=== PATIENT | male | born 1985 | race Caucasian/White ===

== ENCOUNTER 2019-04-28 04:51 | Emergency (ER) | payer MEDICARE, MEDICAID ==
[2019-04-28] MEDS ORDERED: Ondansetron 4 MG Tab.DIS PO ONE (05:10)
[2019-04-28] MEDS ORDERED: Alum Hydroxide/Mag Hydroxide 15 ML, Lidocaine 2% 15 ML PO ONE ×2 (05:11)
[2019-04-28] MEDS ORDERED: Sodium Chloride 0.9% 10 ML Syringe FLUSH PRN (05:39)
[2019-04-28] MEDS ORDERED: Atropine/Diphenoxylate 0.025-2.5 MG Tab PO ONE (05:42)
[2019-04-28] MEDS ORDERED: Sodium Chloride 0.9% 1,000 ML IV SCH (05:45)
[2019-04-28] MEDS ORDERED: Dicyclomine 10 MG Cap PO ONE (05:57)
[2019-04-28] MEDS ORDERED: Iopamidol 755 Mg/ML 100 ML Bottle IV ONE (07:27)
--- NOTE | 2019-04-28 09:26 | EDM.PDOC ---
ED HPI GENERAL MEDICAL PROBLEM - General Chief Complaint: Abdominal Pain Stated Complaint: ABDOMINAL PAIN;PELVIC PAIN Time Seen by Provider: 04/28/19 05:05 - History of Present Illness INITIAL COMMENTS - FREE TEXT/NARRATIVE: Patient presented to the ED because of abdominal pain for 2 months. It's cramping and sharp,diffuse, 8/10 at worse. There is alternating diarrhea and constipation. Denies having any bloody stool, N/V,fever or chills. he was seen by a GI doc 1 week ago and underwent EGD and colonoscopy but result still pending. He was prescribed an unknown medicine for IBS but have not able to fill the prescription because his medical insurance didn't cover it. Abdominal Pain Score (Numeric/FACES): 2 - Related Data Allergies Allergy/AdvReac Type Severity Reaction Status Date / Time adhesive Allergy Rash Verified 04/28/19 07:49 bee pollen Allergy Throat Verified 04/28/19 07:25 closes, Rash seroquel Allergy Nausea Uncoded 04/28/19 07:23 Home Meds: Home Meds Acetaminophen [Tylenol Extra Strength] 1,000 mg PO Q6H PRN 04/28/19 [History] Cyclobenzaprine [Flexeril] 10 mg PO BID PRN 04/28/19 [History] EPINEPHrine [Epipen] 0.3 mg IM ASDIRECTED PRN 04/28/19 [History] LORazepam [Ativan] 0.5 mg PO DAILY 04/28/19 [History] Meloxicam 15 mg PO DAILY 04/28/19 [History] Ondansetron HCl [Zofran] 4 mg PO Q8H PRN 04/28/19 [History] Pantoprazole Sodium [Protonix] 40 mg PO DAILY 04/28/19 [History] Ziprasidone HCl 40 mg PO BID 04/28/19 [History] lamoTRIgine 200 mg PO DAILY 04/28/19 [History] traMADol [Ultram] 50 mg PO Q8H PRN 04/28/19 [History] Past Medical History - Past Health History Medical/Surgical History: Denies Medical/Surgical History HEENT History: Reports: Impaired Vision Other HEENT History: wears glasses Respiratory History: Reports: Asthma, COPD Other Musculoskeletal History: Shoulder dislocation. 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 Wears a brace on right knee. Social & Family History - Tobacco Use Smoking Status *Q: Current Every Day Smoker Years of Tobacco use: 22 Packs/Tins Daily: 1 - Caffeine Use Caffeine Use: Reports: Coffee - Living Situation & Occupation Living situation: Reports: Single, Alone Occupation: Disabled ED ROS GENERAL - Review of Systems Review Of Systems: See Below Constitutional: Reports: No Symptoms HEENT: Reports: No Symptoms Respiratory: Reports: No Symptoms Cardiovascular: Reports: No Symptoms Endocrine: Reports: No Symptoms GI/Abdominal: Reports: Abdominal Pain, Constipation, Diarrhea. Denies: Nausea, Vomiting : Reports: No Symptoms Musculoskeletal: Reports: No Symptoms Skin: Reports: No Symptoms Neurological: Reports: No Symptoms Psychiatric: Reports: No Symptoms ED EXAM, GI/ABD - Physical Exam Exam: See Below Exam Limited By: No Limitations General Appearance: Alert, No Apparent Distress Ears: Normal External Exam, Normal [place] Nose: Normal Inspection, Normal Mucosa, No Blood Throat/Mouth: Normal Inspection, Normal Lips, Normal Teeth Head: Atraumatic, Normocephalic Neck: Normal Inspection, Supple, Non-Tender Respiratory/Chest: No Respiratory Distress, Lungs Clear, Normal Breath Sounds Cardiovascular: No JVD, No Murmur, No Rub GI/Abdominal Exam: Other (diffusely tender) Back Exam: Normal Inspection, Full Range of Motion Extremities: Normal Inspection, Normal Range of Motion Neurological: Alert, Oriented, CN II-XII Intact, Normal Cognition, Normal Gait, No Motor/Sensory Deficits Psychiatric: Normal Affect Skin Exam: Warm Course - Vital Signs Text/Narrative:: labs and CT abd/pelvis result discussed with patient and his girlfriend NS 1 L bolus lomotil 2 tabs po x1 bentyl 20 mg po x1 His pain was down to 1 upon discharge Last Recorded V/S: Last Vital Signs Temp 36.4 C 04/28/19 05:00 Pulse 53 L 04/28/19 07:17 Resp 18 04/28/19 07:17 BP 138/87 04/28/19 07:17 Pulse Ox 100 04/28/19 07:17 - Orders/Labs/Meds Orders: Active Orders 24 hr Category Date Time Status Abdomen Pelvis w Cont [CT] Stat Exams 04/28/19 05:41 Stop Req Abdomen Pelvis w Cont [CT] Stat Exams 04/28/19 05:44 Ordered Sodium Chloride 0.9% [Normal Saline] 1,000 ml Med 04/28/19 05:45 Active IV ASDIRECTED Sodium Chloride 0.9% [Saline Flush] Med 04/28/19 05:39 Active 10 ml FLUSH ASDIRECTED PRN Saline Lock Insert [OM.PC] Routine Oth 04/28/19 05:39 Ordered Medication Orders Sodium Chloride (Normal Saline) 1,000 mls @ 999 mls/hr IV ASDIRECTED GABRIELA Last Admin: 04/28/19 06:15 Dose: 999 mls/hr Sodium Chloride (Saline Flush) 10 ml FLUSH ASDIRECTED PRN PRN Reason: Keep Vein Open Labs: Laboratory Tests 04/28/19 04/28/19 04/28/19 Range/Units 05:20 05:55 05:55 WBC 10.3 (4.5-12.0) X10-3/uL RBC 4.69 (4.30-5.75) x10(6)uL Hgb 14.5 (13.5-17.8) g/dL Hct 44.2 (30.0-51.3) % MCV 94.4 (80-96) fL MCH 31.0 (27.7-33.6) pg MCHC 32.8 (32.2-35.4) g/dL RDW 11.9 (11.5-15.5) % Plt Count 175 (125-369) X10(3)uL MPV 8.7 (7.4-10.4) fL Neut % (Auto) 53.9 (46-82) % Lymph % (Auto) 38.3 H (13-37) % [place] % (Auto) 6.4 (4-12) % Eos % (Auto) 1 (1.0-5.0) % Baso % (Auto) 0 (0-2) % Neut # (Auto) 5.6 (1.6-8.3) # Lymph # (Auto) 3.9 (0.6-5.0) # [place] # (Auto) 0.7 (0.0-1.3) # Eos # (Auto) 0.1 (0.0-0.8) # Baso # (Auto) 0.0 (0.0-0.2) # Sodium 141 (135-145) mmol/L Potassium 3.4 L (3.5-5.3) mmol/L Chloride 107 (100-110) mmol/L Carbon Dioxide 28 (21-32) mmol/L BUN 8 (7-18) mg/dL Creatinine 0.6 L (0.70-1.30) mg/dL Est Cr Clr Drug Dosing 205.38 mL/min Estimated GFR (MDRD) > 60 (>60) BUN/Creatinine Ratio 13.3 (9-20) Glucose 92 (80-116) mg/dL Calcium 8.8 (8.6-10.2) mg/dL Total Bilirubin 0.3 (0.1-1.3) mg/dL AST 12 (5-25) IU/L ALT 21 (12-36) U/L Alkaline Phosphatase 58 (56-112) IU/L Total Protein 6.4 (6.0-8.0) g/dL Albumin 3.6 (3.5-5.2) g/dL Globulin 2.8 g/dL Albumin/Globulin Ratio 1.3 Amylase 36 (25-115) U/L Lipase (73-393) U/L Urine Color Yellow (YELLOW) Urine Appearance Clear (CLEAR) Urine pH 7.0 H (5.0-6.5) Ur Specific [place] 1.015 (1.010-1.025) Urine Protein Negative (NEGATIVE) mg/dL Urine Glucose (UA) Normal (NORMAL) mg/dL Urine Ketones Negative (NEGATIVE) mg/dL Urine Occult Blood Negative (NEGATIVE) Urine Nitrite Negative (NEGATIVE) Urine Bilirubin Negative (NEGATIVE) Urine Urobilinogen Normal (NEGATIVE) mg/dL Ur Leukocyte Esterase Negative (NEGATIVE) Urine RBC 0-5 (0-5) Urine WBC 0-5 (0-5) Ur Squamous Epith Cells Occasional (NS,R,O) Urine Bacteria Few H (NS) 04/28/19 Range/Units 05:55 WBC (4.5-12.0) X10-3/uL RBC (4.30-5.75) x10(6)uL Hgb (13.5-17.8) g/dL Hct (30.0-51.3) % MCV (80-96) fL MCH (27.7-33.6) pg MCHC (32.2-35.4) g/dL RDW (11.5-15.5) % Plt Count (125-369) X10(3)uL MPV (7.4-10.4) fL Neut % (Auto) (46-82) % Lymph % (Auto) (13-37) % [place] % (Auto) (4-12) % Eos % (Auto) (1.0-5.0) % Baso % (Auto) (0-2) % Neut # (Auto) (1.6-8.3) # Lymph # (Auto) (0.6-5.0) # [place] # (Auto) (0.0-1.3) # Eos # (Auto) (0.0-0.8) # Baso # (Auto) (0.0-0.2) # Sodium (135-145) mmol/L Potassium (3.5-5.3) mmol/L Chloride (100-110) mmol/L Carbon Dioxide (21-32) mmol/L BUN (7-18) mg/dL Creatinine (0.70-1.30) mg/dL Est Cr Clr Drug Dosing mL/min Estimated GFR (MDRD) (>60) BUN/Creatinine Ratio (9-20) Glucose (80-116) mg/dL Calcium (8.6-10.2) mg/dL Total Bilirubin (0.1-1.3) mg/dL AST (5-25) IU/L ALT (12-36) U/L Alkaline Phosphatase (56-112) IU/L Total Protein (6.0-8.0) g/dL Albumin (3.5-5.2) g/dL Globulin g/dL Albumin/Globulin Ratio Amylase (25-115) U/L Lipase 125 (73-393) U/L Urine Color (YELLOW) Urine Appearance (CLEAR) Urine pH (5.0-6.5) Ur Specific [place] (1.010-1.025) Urine Protein (NEGATIVE) mg/dL Urine Glucose (UA) (NORMAL) mg/dL Urine Ketones (NEGATIVE) mg/dL Urine Occult Blood (NEGATIVE) Urine Nitrite (NEGATIVE) Urine Bilirubin (NEGATIVE) Urine Urobilinogen (NEGATIVE) mg/dL Ur Leukocyte Esterase (NEGATIVE) Urine RBC (0-5) Urine WBC (0-5) Ur Squamous Epith Cells (NS,R,O) Urine Bacteria (NS) Meds: Medications Generic Name Dose Route Start Last Admin Trade Name Frefaye PRN Reason Stop Dose Admin Sodium Chloride 1,000 mls @ 999 mls/hr 04/28/19 05:45 04/28/19 06:15 Normal Saline IV 999 mls/hr ASDIRECTED GABRIELA Administration Sodium Chloride 10 ml 04/28/19 05:39 Saline Flush FLUSH ASDIRECTED PRN Keep Vein Open Discontinued Medications Generic Name Dose Route Start Last Admin Trade Name Freq PRN Reason Stop Dose Admin Al Hydroxide/Mg Hydroxide 15 0 ml 04/28/19 05:11 04/28/19 05:25 ml/ Lidocaine HCl 15 ml PO 04/28/19 05:12 15 ml ONETIME ONE Administration Dicyclomine HCl 20 mg 04/28/19 05:57 04/28/19 06:16 Bentyl PO 04/28/19 05:58 20 mg ONETIME ONE Administration Diphenoxylate HCl/Atropine 2 tab 04/28/19 05:42 04/28/19 06:19 Lomotil 0.025-2.5 Mg PO 04/28/19 05:43 2 tab ONETIME ONE Administration Iopamidol 100 ml 04/28/19 07:27 04/28/19 08:08 Isovue-370 (76%) IV 04/28/19 07:28 95 ml ONETIME ONE Administration Ondansetron HCl 4 mg 04/28/19 05:10 04/28/19 05:15 Zofran Odt PO 04/28/19 05:11 4 mg ONETIME ONE Administration Departure - Departure Time of Disposition: 23:00 Disposition: Home, Self-Care 01 Condition: Good Clinical Impression: Irritable bowel syndrome (IBS) - Discharge Information Instructions: Dicyclomine tablets or capsules, Ondansetron oral dissolving tablet, Atropine; Diphenoxylate tablets, Irritable Bowel Syndrome, Adult Referrals: Neftaly Johnson PA [Primary Care Provider] - Forms: ED Department Discharge Additional Instructions: please read discharge instructions on IBS Take themedicine that your doctor told you to take as prescribed keep your upcoming appointment to be seen by your internal controls manager this coming month - My Orders Last 24 Hours: My Active Orders 04/28/19 05:39 Sodium Chloride 0.9% [Saline Flush] 10 ml FLUSH ASDIRECTED PRN Saline Lock Insert [OM.PC] Routine 04/28/19 05:41 Abdomen Pelvis w Cont [CT] Stat 04/28/19 05:44 Abdomen Pelvis w Cont [CT] Stat 04/28/19 05:45 Sodium Chloride 0.9% [Normal Saline] 1,000 ml IV ASDIRECTED - Assessment/Plan Last 24 Hours: My Active Orders 04/28/19 05:39 Sodium Chloride 0.9% [Saline Flush] 10 ml FLUSH ASDIRECTED PRN Saline Lock Insert [OM.PC] Routine 04/28/19 05:41 Abdomen Pelvis w Cont [CT] Stat 04/28/19 05:44 Abdomen Pelvis w Cont [CT] Stat 04/28/19 05:45 Sodium Chloride 0.9% [Normal Saline] 1,000 ml IV ASDIRECTED
[2019-04-28 10:27] VITALS: BP 116/62; PULSE 46
== END 2019-04-28 09:43 | disposition home or self-care (01) ==
LOC: FB.ED 04:51
DX: K58.9 Irritable bowel syndrome, unspecified (principal); J44.9 Chronic obstructive pulmonary disease, unspecified; F17.210 Nicotine dependence, cigarettes, uncomplicated; Z91.048 Other nonmedicinal substance allergy status; Z88.8 Allergy status to other drugs, medicaments and biological substances; Z91.030 Bee allergy status
CPT/HCPCS: 36415; 74177; 80053; 81001; 82150; 83690; 85025; 96360; 99284; A9270; J7030; Q9967; 99283

== ENCOUNTER 2019-05-24 14:59 | Emergency (ER) | payer MEDICARE, MEDICAID ==
--- NOTE | 2019-05-24 15:27 | EDM.PDOC ---
ED HPI GENERAL MEDICAL PROBLEM - General Chief Complaint: Back Pain or Injury Stated Complaint: BACK PAIN Time Seen by Provider: 05/24/19 15:10 Source of Information: Reports: Patient History Limitations: Reports: No Limitations - History of Present Illness INITIAL COMMENTS - FREE TEXT/NARRATIVE: pt with chronic pain syndrome/ secondary to chronic back pain related to scoliosis since childhood, comes in with c/o back pain/ spasms at both sides of his back , tells me it hurt all over his back and feels pain radiating to all extremities with numbness , states this is chronic for him but has been gradually getting worse over the past month and that he scheduled an appointment with his PCP on this issue for tomorrow, pt denies being on any pain mng contract or following at a pain clinic, pt denies any recent trauma or injury , denies any other associated sx or concerns. Back Pain Score (Numeric/FACES): 10 - Related Data Allergies Allergy/AdvReac Type Severity Reaction Status Date / Time adhesive Allergy Rash Verified 05/24/19 15:05 bee pollen Allergy Throat Verified 05/24/19 15:05 closes, Rash varenicline [From Chantix] Allergy Depression Verified 05/24/19 15:05 seroquel Allergy Nausea Uncoded 04/28/19 07:23 Home Meds: Home Meds Acetaminophen [Tylenol Extra Strength] 1,000 mg PO Q6H PRN 04/28/19 [History] Cyclobenzaprine [Flexeril] 10 mg PO BID PRN 04/28/19 [History] EPINEPHrine [Epipen] 0.3 mg IM ASDIRECTED PRN 04/28/19 [History] LORazepam [Ativan] 0.5 mg PO DAILY 04/28/19 [History] Meloxicam 15 mg PO DAILY 04/28/19 [History] Ondansetron HCl [Zofran] 4 mg PO Q8H PRN 04/28/19 [History] Pantoprazole Sodium [Protonix] 40 mg PO DAILY 04/28/19 [History] Ziprasidone HCl 40 mg PO BID 04/28/19 [History] lamoTRIgine 200 mg PO DAILY 04/28/19 [History] traMADol [Ultram] 50 mg PO Q8H PRN 04/28/19 [History] Past Medical History - Past Health History Medical/Surgical History: Denies Medical/Surgical History HEENT History: Reports: Impaired Vision Other HEENT History: wears glasses Respiratory History: Reports: Asthma, COPD Other Musculoskeletal History: Shoulder dislocation. 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 Wears a brace on right knee. Social & Family History - Tobacco Use Smoking Status *Q: Current Every Day Smoker Years of Tobacco use: 18 Packs/Tins Daily: 1 - Caffeine Use Caffeine Use: Reports: Soda - Recreational Drug Use Recreational Drug Use: No - Living Situation & Occupation Living situation: Reports: Single, Alone Occupation: Disabled ED ROS GENERAL - Review of Systems Review Of Systems: See Below Constitutional: Reports: Fatigue. Denies: Fever, Chills HEENT: Reports: No Symptoms Respiratory: Reports: No Symptoms Cardiovascular: Reports: No Symptoms GI/Abdominal: Reports: No Symptoms : Reports: No Symptoms Musculoskeletal: Reports: Neck Pain, Shoulder Pain, Arm Pain, Back Pain, Leg Pain, Muscle Stiffness Skin: Reports: No Symptoms Neurological: Reports: No Symptoms. Denies: Headache, Numbness, Weakness ED EXAM, GENERAL - Physical Exam Exam: See Below Exam Limited By: No Limitations General Appearance: Alert, Mild Distress Eye Exam: Bilateral Eye: Normal Inspection Nose: Normal Inspection Throat/Mouth: Normal Inspection, Normal Oropharynx Head: Atraumatic Neck: Normal Inspection, Supple, Non-Tender Respiratory/Chest: No Respiratory Distress, Lungs Clear, Normal Breath Sounds Cardiovascular: Normal Peripheral Pulses, Regular Rate, Rhythm GI/Abdominal: Normal Bowel Sounds, Soft, Non-Tender Back Exam: Normal Inspection, Other (pt has tenderness on palpation of his entier back, has nl strenght and DTR at extremities. ) Extremities: Normal Inspection, Normal Range of Motion, Non-Tender Neurological: Alert, Oriented, CN II-XII Intact, Normal Reflexes, No Motor/ Sensory Deficits Course - Vital Signs Text/Narrative:: pt has worsening of chronic back pain, and stable for out-patient mng, was given valium 10 mg IM also Rx on Valium 10 mg TID/ dispensed 20 tablets , pt to avoid using own muscle relaxants with this medication , otherwise to continue with ultram if needed and was asked to keep follow up appointment with PCP tomorrow to discuss current chronic pain mng . Departure - Departure Time of Disposition: 15:32 Disposition: Home, Self-Care 01 Clinical Impression: Back pain - Discharge Information Referrals: Neftaly Johnson PA [Primary Care Provider] -
[2019-05-24] MEDS ORDERED: diazePAM 5 MG/ML MDV IM ONE (15:33)
[2019-05-24 16:21] VITALS: BP 137/70; PULSE 66
== END 2019-05-24 16:10 | disposition home or self-care (01) ==
LOC: FB.ED 14:59
DX: M54.9 Dorsalgia, unspecified (principal); J44.9 Chronic obstructive pulmonary disease, unspecified; F41.9 Anxiety disorder, unspecified; F32.9 Major depressive disorder, single episode, unspecified; F17.210 Nicotine dependence, cigarettes, uncomplicated; Z88.8 Allergy status to other drugs, medicaments and biological substances; Z91.030 Bee allergy status; Z91.048 Other nonmedicinal substance allergy status; Z79.899 Other long term (current) drug therapy
CPT/HCPCS: 96372; 99283; 99283-25; J3360

== ENCOUNTER 2019-07-11 03:18 | Emergency (ER) | payer MEDICARE, MEDICAID ==
[2019-07-11] MEDS ORDERED: Acetaminophen/HYDROcodone 325-5 MG Tab PO ONE (03:19)
[2019-07-11] MEDS ORDERED: Morphine 10 MG/ML SDV IM ONE (04:08)
--- NOTE | 2019-07-11 04:21 | EDM.PDOC ---
ED HPI GENERAL MEDICAL PROBLEM - General Chief Complaint: Back Pain or Injury Stated Complaint: LOWER BACK PAIN Time Seen by Provider: 07/11/19 04:18 Source of Information: Reports: Patient History Limitations: Reports: No Limitations - History of Present Illness INITIAL COMMENTS - FREE TEXT/NARRATIVE: Patient fell twice tonight,on ice,and on the lower back and rt shoulder. Complains of severe back spasms,with radiation the neck. Mid to lower back & R shoulder & arm Pain Score (Numeric/FACES): 8 - Related Data Allergies Allergy/AdvReac Type Severity Reaction Status Date / Time adhesive Allergy Rash Verified 07/11/19 03:36 bee pollen Allergy Throat Verified 07/11/19 03:36 closes, Rash varenicline [From Chantix] Allergy Depression Verified 07/11/19 03:36 seroquel Allergy Nausea Uncoded 07/11/19 03:36 Home Meds: Home Meds Acetaminophen [Tylenol Extra Strength] 1,000 mg PO Q6H PRN 04/28/19 [History] Cyclobenzaprine [Flexeril] 10 mg PO BID PRN 04/28/19 [History] EPINEPHrine [Epipen] 0.3 mg IM ASDIRECTED PRN 04/28/19 [History] Pantoprazole Sodium [Protonix] 40 mg PO DAILY 04/28/19 [History] Ziprasidone HCl 40 mg PO BID 04/28/19 [History] lamoTRIgine 25 mg PO DAILY 04/28/19 [History] Past Medical History - Past Health History Medical/Surgical History: Denies Medical/Surgical History HEENT History: Reports: Impaired Vision Other HEENT History: wears glasses Respiratory History: Reports: Asthma, COPD Gastrointestinal History: Reports: Irritable Bowel Syndrome Other Musculoskeletal History: Shoulder dislocation. 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 Wears a brace on right knee. Social & Family History - Family History Family Medical History: Noncontributory - Tobacco Use Smoking Status *Q: Current Every Day Smoker Years of Tobacco use: 18 Packs/Tins Daily: 1 - Caffeine Use Caffeine Use: Reports: Soda - Recreational Drug Use Recreational Drug Use: No - Living Situation & Occupation Living situation: Reports: Single, Alone Occupation: Disabled ED ROS GENERAL - Review of Systems Review Of Systems: Comprehensive ROS is negative, except as noted in HPI. ED EXAM,LOWER BACK PAIN/INJURY - Physical Exam Exam: See Below Exam Limited By: No Limitations General Appearance: Alert, WD/WN Ears: Normal External Exam Head: Atraumatic Neck: Normal Inspection Back Exam: Normal Inspection, Muscle Spasm, Vertebral Tenderness Extremities: Normal Inspection Neurological: Alert, Normal Mood/Affect Psychiatric: Anxious Skin Exam: Warm Course - Vital Signs Last Recorded V/S: Last Vital Signs Temp 97.2 F 07/11/19 03:18 Pulse 74 07/11/19 05:40 Resp 18 07/11/19 05:40 BP 141/89 H 07/11/19 05:40 Pulse Ox 100 07/11/19 05:40 - Orders/Labs/Meds Orders: Active Orders 24 hr Category Date Time Status Lumbar Spine 2 or 3V [CR] Stat Exams 07/11/19 04:09 Taken Shoulder Comp Rt [CR] Stat Exams 07/11/19 04:09 Taken Meds: Medications Discontinued Medications Generic Name Dose Route Start Last Admin Trade Name Yajaira PRN Reason Stop Dose Admin Hydroxyzine HCl 50 mg 07/11/19 05:33 07/11/19 05:46 Vistaril IM 07/11/19 05:34 50 mg ONETIME ONE Administration Ketorolac Tromethamine 60 mg 07/11/19 05:33 07/11/19 06:13 Toradol IM 07/11/19 05:34 60 mg ONETIME ONE Administration Morphine Sulfate 10 mg 07/11/19 04:08 07/11/19 04:10 Morphine IM 07/11/19 04:09 10 mg ONETIME ONE Administration Departure - Departure Time of Disposition: 17:43 Disposition: Home, Self-Care 01 Condition: Good Clinical Impression: Back pain - Discharge Information Instructions: Acetaminophen; Hydrocodone tablets or capsules, Ketorolac injection, Acute Back Pain, Adult, Hydroxyzine injection, Morphine injection solution Referrals: Neftaly Johnson PA [Primary Care Provider] - Forms: ED Department Discharge Additional Instructions: Activity as tolerated. Hydrocodone 5/325 1 tablet every 8 hours as needed for severe pain. Ibuprofen 600mg every 6 hours as needed for moderate pain. Tylenol (Acetaminophen) 1000mg every 6hours as needed for moderate pain. Follow up on Saturday with regular MD at clinic for recheck. Sepsis Event Note - Evaluation Sepsis Screening Result: No Definite Risk - Focused Exam Date Exam was Performed: 07/11/19 Time Exam was Performed: 17:43 - Problem List & Annotations (1) Lower back injury SNOMED Code(s): 896986436 Code(s): S39.92XA - UNSPECIFIED INJURY OF LOWER BACK, INITIAL ENCOUNTER Status: Acute Qualifiers: Encounter type: initial encounter Qualified Code(s): S39.92XA - Unspecified injury of lower back, initial encounter - Problem List Review Problem List Initiated/Reviewed/Updated: Yes - My Orders Last 24 Hours: My Active Orders 07/11/19 04:09 Lumbar Spine 2 or 3V [CR] Stat Shoulder Comp Rt [CR] Stat - Assessment/Plan Last 24 Hours: My Active Orders 07/11/19 04:09 Lumbar Spine 2 or 3V [CR] Stat Shoulder Comp Rt [CR] Stat Plan: I gave him Morphine IM. Xrays were largely unremarkable.DC home on oral [place]. See PCP on Saturday
[2019-07-11] MEDS ORDERED: Ketorolac 60 MG/2 ML SDV IM ONE (05:33)
[2019-07-11] MEDS ORDERED: hydrOXYzine HCl 50 MG/ML SDV IM ONE (05:33)
[2019-07-11 06:13] VITALS: BP 141/89; PULSE 74
== END 2019-07-11 05:58 | disposition home or self-care (01) ==
LOC: FB.ED 03:18
DX: M54.5 Low back pain (principal); M25.511 Pain in right shoulder; J44.9 Chronic obstructive pulmonary disease, unspecified; F41.9 Anxiety disorder, unspecified; F31.9 Bipolar disorder, unspecified; F17.210 Nicotine dependence, cigarettes, uncomplicated; Z88.8 Allergy status to other drugs, medicaments and biological substances; Z91.048 Other nonmedicinal substance allergy status; Z79.899 Other long term (current) drug therapy
CPT/HCPCS: 72100; 73030; 96372; 99283; 99284; A9270; J1885; J2270; J3410

== ENCOUNTER 2019-07-27 00:02 | Emergency (ER) | payer MEDICARE, MEDICAID ==
--- NOTE | 2019-07-27 00:51 | EDM.PDOC ---
ED HPI GENERAL MEDICAL PROBLEM - General Stated Complaint: BACK PAIN Time Seen by Provider: 07/27/19 00:50 Source of Information: Reports: Patient History Limitations: Reports: No Limitations - History of Present Illness INITIAL COMMENTS - FREE TEXT/NARRATIVE: 33-year-old male with history of chronic back pain who reports that 2-3 weeks ago he fell and injured his back causing increased pain in his lower back and he also injured his right shoulder. He was seen in the emergency department and had x-ray of his back and shoulder and apparently this showed no acute problem and he was given a single injection and a prescription for small number of hydrocodone and sent home. He reports that the pain progressively proved after this beginning about 2 days ago he noted some tightening in his back and today he had spasm in his back that was here and one to 2 hours ago he found it difficult to even move around his house because of the spasm in his back. He does have pain that radiates into her legs but this is something that he has had in the past. He has no problems urinating and he has had no bowel control problems. He has had no fevers or chills. He rates the pain as an 8-9/10 at present. No abdominal pain. No nausea. No vomiting. No injury since before. There are no other associated signs or symptoms. There are no other modifying factors. Onset: Other (Ongoing problems with chronic back pain with worsening over the past 2-3 days) Duration: Getting Worse Location: Reports: Back (Lumbar back) Quality: Reports: Sharp, Other (Spasm-like pain) Severity: Moderate (to [place]) Improves with: Reports: None Worsens with: Reports: Other (Palpation), Movement Context: Reports: Other (As above) Associated Symptoms: Reports: No Other Symptoms Treatments [employer]: Reports: Acetaminophen Lower Back Pain Score (Numeric/FACES): 3 - Related Data Allergies Allergy/AdvReac Type Severity Reaction Status Date / Time adhesive Allergy Rash Verified 07/11/19 03:36 bee pollen Allergy Throat Verified 07/11/19 03:36 closes, Rash varenicline [From Chantix] Allergy Depression Verified 07/11/19 03:36 seroquel Allergy Nausea Uncoded 07/11/19 03:36 Home Meds: Home Meds Acetaminophen [Tylenol Extra Strength] 1,000 mg PO Q6H PRN 04/28/19 [History] Cyclobenzaprine [Flexeril] 10 mg PO BID PRN 04/28/19 [History] EPINEPHrine [Epipen] 0.3 mg IM ASDIRECTED PRN 04/28/19 [History] Pantoprazole Sodium [Protonix] 40 mg PO DAILY 04/28/19 [History] Ziprasidone HCl 40 mg PO BID 04/28/19 [History] lamoTRIgine 25 - 50 mg PO DAILY 04/28/19 [History] tiZANidine [Zanaflex] 4 mg PO Q6H PRN #20 tab 07/27/19 [Rx] Past Medical History HEENT History: Reports: Impaired Vision Other HEENT History: wears glasses Respiratory History: Reports: Asthma, COPD Gastrointestinal History: Reports: Irritable Bowel Syndrome Musculoskeletal History: Reports: Back Pain, Chronic, Other (See Below) ( Chronic joint pain and joint condition) Other Musculoskeletal History: Shoulder dislocation. 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 Wears a brace on right knee. Social & Family History - Tobacco Use Smoking Status *Q: Current Every Day Smoker - Caffeine Use Caffeine Use: Reports: Soda - Alcohol Use Alcohol Use History: No Alcohol Use Comment: Sober for the past 10 years. - Recreational Drug Use Recreational Drug Use: No Drug Use in Last 12 Months: No Other Recreational Drug Route: Patient with previous marijuana use but none for the past 10 years. - Living Situation & Occupation Living situation: Reports: Single, Alone Occupation: Disabled ED ROS GENERAL - Review of Systems Review Of Systems: See Below Constitutional: Reports: No Symptoms HEENT: Reports: No Symptoms Respiratory: Reports: No Symptoms Cardiovascular: Reports: No Symptoms Endocrine: Reports: No Symptoms GI/Abdominal: Reports: No Symptoms : Reports: No Symptoms Musculoskeletal: Reports: Back Pain Skin: Reports: No Symptoms Neurological: Reports: No Symptoms Hematologic/Lymphatic: Reports: No Symptoms Immunologic: Reports: No Symptoms ED EXAM,LOWER BACK PAIN/INJURY - Physical Exam Exam: See Below Exam Limited By: No Limitations General Appearance: Alert, WD/WN, Moderate Distress Eye Exam: Bilateral Eye: EOMI, Normal Inspection, PERRL Ears: Normal External Exam, Hearing Grossly Normal Nose: Normal Inspection, Normal Mucosa, No Blood Throat/Mouth: Normal Inspection, Normal Lips, Normal Oropharynx, Normal Voice, No Airway Compromise Head: Atraumatic, Normocephalic Neck: Normal Inspection, Supple, Non-Tender, Full Range of Motion Respiratory/Chest: No Respiratory Distress, Lungs Clear, Normal Breath Sounds, No Accessory Muscle Use, Chest Non-Tender Cardiovascular: Normal Peripheral Pulses, Regular Rate, Rhythm, No Edema, No Murmur GI/Abdominal: Normal Bowel Sounds, Soft, Non-Tender, No Mass Back Exam: Normal Inspection, Muscle Spasm, Other (Diffuse tenderness over the lumbar spine area and bilateral paraspinous areas. No redness. No rashes.) Extremities: Normal Inspection, Normal Range of Motion, Non-Tender, No Pedal Edema, Normal Capillary Refill Neurological: Alert, Normal Mood/Affect, Normal Dorsiflexion, CN II-XII Intact, Normal Plantar Flexion, No Motor/Sensory Deficits, Oriented x 3 Skin Exam: Warm, Dry, Intact, Normal Color, No Rash Course - Vital Signs Last Recorded V/S: Last Vital Signs Temp 36.3 C 07/27/19 02:25 Pulse 78 07/27/19 02:25 Resp 20 07/27/19 02:25 BP 153/94 H 07/27/19 02:25 Pulse Ox 99 07/27/19 02:25 - Orders/Labs/Meds Meds: Medications Discontinued Medications Generic Name Dose Route Start Last Admin Trade Name Yajaira PRN Reason Stop Dose Admin Diazepam 5 mg 07/27/19 01:05 07/27/19 01:48 Valium. PO 07/27/19 01:06 5 mg ONETIME ONE Administration Ketorolac Tromethamine 60 mg 07/27/19 01:05 07/27/19 01:46 Toradol IM 07/27/19 01:06 60 mg ONETIME ONE Administration - Re-Assessments/Exams Free Text/Narrative Re-Assessment/Exam: 07/27/19 01:10: Patient with acute exacerbation of his chronic back pain with back spasm today. He has normal neurologic function in both of his legs and he has had no bowel or bladder control problems. In fact, he urinated normally here. I will give the patient Toradol 60 mg IM and Valium 5 mg by mouth. I will also prescribe him Zanaflex as a muscle relaxer instead of the Flexeril (he reports that the Flexeril does not help him). He is to follow-up with a doctor on Saturday of this coming week and regard to his back and chronic joint pains. The patient will be discharged home after the above. The patient and his significant other are in agreement and are comfortable with the plan for discharge. Departure - Departure Time of Disposition: 01:30 Disposition: Home, Self-Care 01 Condition: Good (Stable) Clinical Impression: Acute exacerbation of chronic low back pain, Back spasm - Discharge Information Prescriptions: tiZANidine [Zanaflex] 4 mg PO Q6H PRN #20 tab PRN Reason: Muscle Spasm Instructions: Chronic Back Pain, [id number] Referrals: Neftaly Johnson PA [Primary Care Provider] - Forms: ED Department Discharge Additional Instructions: You appear to be having an exacerbation of your chronic back pain with back spasms. Continue to take the Tylenol for pain the you have. New medication as prescribed (Zanaflex 4 mg). Take this new medication instead of the Flexeril as needed for muscle spasm. Do gentle stretching of your back. Increase your fluid intake. Keep the follow-up with the to the you have on Saturday of this coming week. Back to the emergency department for problems controlling your bowels or your bladder, fever or any other concerning sign or symptom. Sepsis Event Note - Focused Exam Date Exam was Performed: 07/27/19 Time Exam was Performed: 17:14
[2019-07-27] MEDS ORDERED: Ketorolac 60 MG/2 ML SDV IM ONE (01:05)
[2019-07-27] MEDS ORDERED: Diazepam 5 MG Tab PO ONE (01:05)
[2019-07-27 04:09] VITALS: BP 153/94; PULSE 78
== END 2019-07-27 02:25 | disposition home or self-care (01) ==
LOC: FB.ED 00:02
DX: M62.830 Muscle spasm of back (principal); G89.29 Other chronic pain; J44.9 Chronic obstructive pulmonary disease, unspecified; F17.200 Nicotine dependence, unspecified, uncomplicated; Z91.048 Other nonmedicinal substance allergy status; Z91.030 Bee allergy status; Z88.8 Allergy status to other drugs, medicaments and biological substances
CPT/HCPCS: 96372; 99283; A9270; J1885

== ENCOUNTER 2019-08-05 19:53 | Emergency (ER) | payer MEDICARE, MEDICAID ==
--- NOTE | 2019-08-05 20:42 | EDM.PDOC ---
ED HPI GENERAL MEDICAL PROBLEM - General Stated Complaint: HEART PROBLEMS Time Seen by Provider: 08/05/19 20:38 Source of Information: Reports: Patient History Limitations: Reports: No Limitations - History of Present Illness INITIAL COMMENTS - FREE TEXT/NARRATIVE: Allen is a 33 yo male with Chest pain x 1 hr. Sharp,left side,intermittent.No radiation.No association with nausea,SOB,cough or fever. Has a long standing psychiatric history,and yesterday took a total of Vistaril 150 mg for Anxiety. Adan vallejo worked up several times for cardiac h/o and palpitations. Negative work up,mas far as I know - Related Data Allergies Allergy/AdvReac Type Severity Reaction Status Date / Time adhesive Allergy Rash Verified 08/05/19 20:07 bee pollen Allergy Throat Verified 08/05/19 20:07 closes, Rash varenicline [From Chantix] Allergy Depression Verified 08/05/19 20:07 seroquel Allergy Nausea Uncoded 08/05/19 20:07 Home Meds: Home Meds Acetaminophen [Tylenol Extra Strength] 1,000 mg PO Q6H PRN 04/28/19 [History] EPINEPHrine [Epipen] 0.3 mg IM ASDIRECTED PRN 04/28/19 [History] Ziprasidone HCl 40 mg PO BID 04/28/19 [History] lamoTRIgine 25 - 50 mg PO DAILY 04/28/19 [History] Amitriptyline [Elavil] 25 mg PO BEDTIME 08/05/19 [History] Past Medical History - Past Health History Medical/Surgical History: Denies Medical/Surgical History HEENT History: Reports: Impaired Vision Other HEENT History: wears glasses Respiratory History: Reports: Asthma, COPD Gastrointestinal History: Reports: Irritable Bowel Syndrome Musculoskeletal History: Reports: Back Pain, Chronic, Other (See Below) ( Chronic joint pain and joint condition) Other Musculoskeletal History: Shoulder dislocation. 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 Wears a brace on right knee. Social & Family History - Family History Family Medical History: Noncontributory - Caffeine Use Caffeine Use: Reports: Soda - Living Situation & Occupation Living situation: Reports: Single, Alone Occupation: Disabled ED ROS GENERAL - Review of Systems Review Of Systems: Comprehensive ROS is negative, except as noted in HPI. ED EXAM, GENERAL - Physical Exam Exam: See Below Exam Limited By: No Limitations General Appearance: Alert, WD/WN, No Apparent Distress Ears: Normal External Exam Ear Exam: Bilateral Ear: Auricle Normal, Canal Normal, TM normal Nose: Normal Inspection, Normal Mucosa, No Blood Throat/Mouth: Normal Inspection, Normal Lips, Normal Teeth, Normal Gums, Normal Oropharynx, Normal Voice, No Airway Compromise Head: Atraumatic, Normocephalic Neck: Normal Inspection Respiratory/Chest: No Respiratory Distress, Lungs Clear Cardiovascular: Normal Peripheral Pulses Neurological: Alert, Oriented Psychiatric: Depressed Mood, Flat Affect Skin Exam: Warm EKG INTERPRETATION Rhythm: NSR Course - Vital Signs Last Recorded V/S: Last Vital Signs Temp Pulse 89 08/05/19 20:00 Resp 25 H 08/05/19 20:00 BP 136/80 08/05/19 20:00 Pulse Ox 100 08/05/19 20:00 Departure - Departure Time of Disposition: 20:41 Disposition: Home, Self-Care 01 Condition: Good Clinical Impression: Atypical chest pain Instructions: Nonspecific Chest Pain Referrals: PCP,None [Primary Care Provider] - Care Plan Goals: Follow up with your regular Sepsis Event Note - Evaluation Sepsis Screening Result: No Definite Risk - Focused Exam Vital Signs: Vital Signs Pulse Resp BP Pulse Ox 08/05/19 20:00 89 25 H 136/80 100 Date Exam was Performed: 08/05/19 Time Exam was Performed: 20:38 - Problem List & Annotations (1) Atypical chest pain SNOMED Code(s): 152167984 Code(s): R07.89 - OTHER CHEST PAIN Status: Acute Current Visit: Yes - Problem List Review Problem List Initiated/Reviewed/Updated: Yes - Assessment/Plan Plan: Reassurance
[2019-08-05 21:02] VITALS: BP 117/69; PULSE 83
== END 2019-08-05 20:40 | disposition home or self-care (01) ==
LOC: FB.ED 19:53
DX: R07.89 Other chest pain (principal); F41.9 Anxiety disorder, unspecified; F32.9 Major depressive disorder, single episode, unspecified; J44.9 Chronic obstructive pulmonary disease, unspecified; Z91.09 Other allergy status, other than to drugs and biological substances; Z91.030 Bee allergy status; Z88.8 Allergy status to other drugs, medicaments and biological substances
CPT/HCPCS: 93005; 99282; 99284-25

== ENCOUNTER 2019-11-24 00:36 | Emergency (ER) | payer MEDICARE, MEDICAID ==
[2019-11-24] MEDS ORDERED: Ketorolac 60 MG/2 ML SDV IM ONE (00:54)
[2019-11-24 00:56] VITALS: BP 127/77; PULSE 95
[2019-11-24] MEDS ORDERED: Acetaminophen 500 MG Tab PO ONE (00:57)
--- NOTE | 2019-11-24 01:00 | EDM.PDOC ---
ED HPI GENERAL MEDICAL PROBLEM - General Chief Complaint: Bite:Animal, Insect Stated Complaint: FOOT PAIN Time Seen by Provider: 11/24/19 00:45 Source of Information: Reports: Patient History Limitations: Reports: No Limitations - History of Present Illness INITIAL COMMENTS - FREE TEXT/NARRATIVE: Gustavo woke up with pain and swelling of the right foot. He didn't know if he twisted it and also there is an insect bite on the same foot. right foot Pain Score (Numeric/FACES): 8 - Related Data Allergies Allergy/AdvReac Type Severity Reaction Status Date / Time adhesive Allergy Rash Verified 11/24/19 00:56 bee pollen Allergy Throat Verified 11/24/19 00:56 closes, Rash varenicline [From Chantix] Allergy Depression Verified 11/24/19 00:56 seroquel Allergy Nausea Uncoded 08/05/19 20:07 Home Meds: Home Meds Acetaminophen [Tylenol Extra Strength] 1,000 mg PO Q6H PRN 04/28/19 [History] EPINEPHrine [Epipen] 0.3 mg IM ASDIRECTED PRN 04/28/19 [History] lamoTRIgine 100 mg PO DAILY 04/28/19 [History] ziprasidone HCL [Ziprasidone HCl] 60 mg PO DAILY 04/28/19 [History] Amitriptyline [Elavil] 25 mg PO BEDTIME 08/05/19 [History] Asenapine Maleate [Saphris] 5 mg SL BID 11/24/19 [History] Omeprazole 20 mg PO DAILY 11/24/19 [History] Past Medical History - Past Health History Medical/Surgical History: Denies Medical/Surgical History HEENT History: Reports: Impaired Vision Other HEENT History: wears glasses Respiratory History: Reports: Asthma, COPD Gastrointestinal History: Reports: Irritable Bowel Syndrome Musculoskeletal History: Reports: Back Pain, Chronic, Other (See Below) ( Chronic joint pain and joint condition) Other Musculoskeletal History: Shoulder dislocation. 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 Wears a brace on right knee. Social & Family History - Family History Family Medical History: Noncontributory - Caffeine Use Caffeine Use: Reports: Soda - Living Situation & Occupation Living situation: Reports: Single, Alone Occupation: Disabled ED ROS GENERAL - Review of Systems Review Of Systems: See Below Constitutional: Reports: No Symptoms HEENT: Reports: No Symptoms Respiratory: Reports: No Symptoms Cardiovascular: Reports: No Symptoms Endocrine: Reports: No Symptoms GI/Abdominal: Reports: No Symptoms : Reports: No Symptoms Musculoskeletal: Reports: Foot Pain Skin: Reports: No Symptoms ED EXAM, ANIMAL BITE - Physical Exam Exam: See Below Exam Limited By: No Limitations General Appearance: Alert, No Apparent Distress Eye Exam: Bilateral Eye: PERRL Ears: Normal External Exam, Normal Canal Nose: Normal Inspection, Normal Mucosa, No Blood Throat/Mouth: Normal Inspection, Normal Lips, Normal Teeth Head: Atraumatic, Normocephalic Respiratory/Chest: No Respiratory Distress, Lungs Clear, Normal Breath Sounds Cardiovascular: Normal Peripheral Pulses, Regular Rate, Rhythm, No Edema GI/Abdominal: Normal Bowel Sounds, Soft, Non-Tender Back Exam: Normal Inspection, Full Range of Motion Extremities: Normal Range of Motion, Other (tnderness over the metatarsal are- middle with some swelling) Psychiatric: Normal Affect Skin Exam: Normal Color Course - Vital Signs Text/Narrative:: Toradol 60 mg IM x1 Tylenol 1000 po x1 Last Recorded V/S: Last Vital Signs Temp 36.8 C 11/24/19 00:40 Pulse 95 11/24/19 00:40 Resp 16 11/24/19 00:40 BP 127/77 11/24/19 00:40 Pulse Ox 100 11/24/19 00:40 - Orders/Labs/Meds Meds: Medications Discontinued Medications Generic Name Dose Route Start Last Admin Trade Name Freq PRN Reason Stop Dose Admin Acetaminophen 1,000 mg 11/24/19 00:57 Tylenol Extra Strength PO 11/24/19 00:58 ONETIME ONE Ketorolac Tromethamine 60 mg 11/24/19 00:54 Toradol IM 11/24/19 00:55 ONETIME ONE Departure - Departure Time of Disposition: 01:00 Disposition: Home, Self-Care 01 Condition: Good Clinical Impression: Foot sprain, Insect bite - Discharge Information Instructions: Foot Sprain, Insect Bite, Adult Referrals: Neftaly Johnson PA [Primary Care Provider] - Forms: ED Department Discharge Additional Instructions: please read discharge instructions on foot sprain and insect bite take 2 tablets of aleve with tylenol 1000 mg ever 12 hours as needed for pain follow up as needed Sepsis Event Note (ED) - Focused Exam Vital Signs: Vital Signs Temp Pulse Resp BP Pulse Ox 11/24/19 00:40 36.8 C 95 16 127/77 100
[2019-11-24] MEDS ORDERED: Acetaminophen 500 MG Tab ONE (01:05)
[2019-11-24] MEDS ORDERED: Ketorolac 60 MG/2 ML SDV ONE (01:05)
== END 2019-11-24 01:12 | disposition home or self-care (01) ==
LOC: FB.ED 00:36
DX: S93.601A Unspecified sprain of right foot, initial encounter (principal); S90.861A Insect bite (nonvenomous), right foot, initial encounter; F41.9 Anxiety disorder, unspecified; F31.9 Bipolar disorder, unspecified; F44.5 Conversion disorder with seizures or convulsions; Z88.8 Allergy status to other drugs, medicaments and biological substances; Z91.048 Other nonmedicinal substance allergy status; Z91.030 Bee allergy status; Z79.899 Other long term (current) drug therapy; W57.XXXA Bitten or stung by nonvenomous insect and other nonvenomous arthropods, initial encounter
CPT/HCPCS: 96372; 99283; A9270; J1885

== ENCOUNTER 2019-11-27 21:19 | Emergency (ER) | payer MEDICARE, MEDICAID ==
[2019-11-27] MEDS ORDERED: tiZANidine 4 MG Tab PO ONE ×2 (21:20→22:00)
[2019-11-27] MEDS ORDERED: tiZANidine 4 MG Tab PO PRN (21:57)
--- NOTE | 2019-11-27 21:57 | EDM.PDOC ---
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 This occurred graveside as the casket was placed onto the stand for burial. Sxs include some numbness in both lower extremities, weakness, and fear that sxs will progress. He has had this occur at least twice in the past, and resolve in 30 min to 3 hours. He has a PMH of back issues, and was recently taken off Flexeril. - Related Data Allergies Allergy/AdvReac Type Severity Reaction Status Date / Time adhesive Allergy Rash Verified 11/24/19 00:56 bee pollen Allergy Throat Verified 11/24/19 00:56 closes, Rash varenicline [From Chantix] Allergy Depression Verified 11/24/19 00:56 seroquel Allergy Nausea Uncoded 08/05/19 20:07 Home Meds: Home Meds Acetaminophen [Tylenol Extra Strength] 1,000 mg PO Q6H PRN 04/28/19 [History] EPINEPHrine [Epipen] 0.3 mg IM ASDIRECTED PRN 04/28/19 [History] lamoTRIgine 100 mg PO DAILY 04/28/19 [History] ziprasidone HCL [Ziprasidone HCl] 1 cap PO DAILY 04/28/19 [History] Amitriptyline [Elavil] 25 mg PO BEDTIME 08/05/19 [History] Asenapine Maleate [Saphris] 5 mg SL BID 11/24/19 [History] Omeprazole 20 mg PO DAILY 11/24/19 [History] Past Medical History - Past Health History Medical/Surgical History: Denies Medical/Surgical History HEENT History: Reports: Impaired Vision Other HEENT History: wears glasses Respiratory History: Reports: Asthma, COPD Gastrointestinal History: Reports: Irritable Bowel Syndrome Musculoskeletal History: Reports: Back Pain, Chronic, Other (See Below) (Chronic joint pain and joint condition) Other Musculoskeletal History: Shoulder dislocation. 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 Wears a brace on right knee. Social & Family History - Family History Family Medical History: Noncontributory - Caffeine Use Caffeine Use: Reports: Soda - Living Situation & Occupation Living situation: Reports: Single, Alone Occupation: Disabled ED ROS GENERAL - Review of Systems Review Of Systems: Comprehensive ROS is negative, except as noted in HPI. ED EXAM,LOWER BACK PAIN/INJURY - Physical Exam Exam: See Below Exam Limited By: No Limitations General Appearance: Alert, WD/WN, No Apparent Distress, Anxious, Thin Head: Normocephalic Neck: Normal Inspection, Supple, Non-Tender Respiratory/Chest: No Respiratory Distress, Lungs Clear, Normal Breath Sounds, No Accessory Muscle Use Cardiovascular: Regular Rate, Rhythm, No Murmur Back Exam: Normal Inspection, Muscle Spasm (R>L), Paraspinal Tenderness (R>L) Extremities: Normal Inspection, Normal Range of Motion, Non-Tender Neurological: Alert, Normal Dorsiflexion, CN II-XII Intact, Normal Plantar Flexion, No Motor/Sensory Deficits, Oriented x 3 Psychiatric: Anxious Skin Exam: Warm, Dry, Intact, Normal Color, No Rash Lymphatic: No Adenopathy Course - Vital Signs Text/Narrative:: Allen has had past issues with back spasms, and numerous meds have been tried. He was recently taken off Flexeril 2 weeks ago. I administered Zanaflex 4 mg po prior to discharge. - Orders/Labs/Meds Orders: Active Orders 24 hr Category Date Time Status tiZANidine [Zanaflex] Med 11/27/19 21:57 Active 4 mg PO Q6H PRN Medication Orders Tizanidine HCl (Zanaflex) 4 mg PO Q6H PRN PRN Reason: Breakthrough Pain Last Admin: 11/27/19 22:00 Dose: 4 mg Documented by: KRISTY Meds: Medications Generic Name Dose Route Start Last Admin Trade Name Freq PRN Reason Stop Dose Admin Tizanidine HCl 4 mg 11/27/19 21:57 11/27/19 22:00 Zanaflex PO 4 mg Q6H PRN Administration Breakthrough Pain Departure - Departure Time of Disposition: 22:30 Disposition: Home, Self-Care 01 Condition: Fair Clinical Impression: Back spasm - Discharge Information *PRESCRIPTION DRUG MONITORING PROGRAM REVIEWED*: Not Applicable *COPY OF PRESCRIPTION DRUG MONITORING REPORT IN PATIENT CLARITA: Not Applicable Instructions: Muscle Cramps and Spasms, Tizanidine tablets or capsules Referrals: Neftaly Johnson PA [Primary Care Provider] - Forms: ED Department Discharge Care Plan Goals: You were given one tablet of Tizanidine (Zanaflex) 4 mg in the Emergency Room at 2200 on November 27, 2019. You were given three more tablets of Tizanidine for home use, you may repeat every 6 hours as needed for muscle spasms. Return to Clinic or ER as needed. - Problem List & Annotations (1) Back spasm SNOMED Code(s): 861955857 Code(s): M62.830 - MUSCLE SPASM OF BACK Status: Acute Current Visit: Yes Annotation/Comment:: I dispensed Zanaflex 4 mg tabs q6 hrs prn for back spasms. - Problem List Review Problem List Initiated/Reviewed/Updated: Yes - My Orders Last 24 Hours: My Active Orders 11/27/19 21:57 tiZANidine [Zanaflex] 4 mg PO Q6H PRN - Assessment/Plan Last 24 Hours: My Active Orders 11/27/19 21:57 tiZANidine [Zanaflex] 4 mg PO Q6H PRN Plan: Follow up with PCP if needed.
[2019-11-28 00:45] VITALS: BP 138/76; PULSE 88
== END 2019-11-27 22:15 | disposition home or self-care (01) ==
LOC: FB.ED 21:19
DX: M62.830 Muscle spasm of back (principal); F41.9 Anxiety disorder, unspecified; F31.9 Bipolar disorder, unspecified; F44.5 Conversion disorder with seizures or convulsions; Z88.8 Allergy status to other drugs, medicaments and biological substances; Z91.030 Bee allergy status; Z91.048 Other nonmedicinal substance allergy status; Z79.899 Other long term (current) drug therapy
CPT/HCPCS: 99283; A9270

== ENCOUNTER 2020-03-21 19:53 | Emergency (ER) | payer MEDICARE, MEDICAID ==
--- NOTE | 2020-03-21 21:21 | EDM.PDOC ---
ED HPI GENERAL MEDICAL PROBLEM - General Chief Complaint: Lower Extremity Injury/Pain Stated Complaint: LEFT FOOT Time Seen by Provider: 03/21/20 20:35 Source of Information: Reports: Patient History Limitations: Reports: No Limitations - History of Present Illness INITIAL COMMENTS - FREE TEXT/NARRATIVE: Patient presented to the ED because of pain and swelling of the left foot and ankle. He apparently twisted it and since then it hurts especially with ambulation. He rate his pain 8/10. - Related Data Allergies Allergy/AdvReac Type Severity Reaction Status Date / Time adhesive Allergy Rash Verified 03/21/20 22:34 bee pollen Allergy Throat Verified 03/21/20 22:34 closes, Rash varenicline [From Chantix] Allergy Depression Verified 03/21/20 22:34 seroquel Allergy Nausea Uncoded 11/28/19 01:43 Home Meds: Home Meds Acetaminophen [Tylenol Extra Strength] 1,000 mg PO Q6H PRN 04/28/19 [History] EPINEPHrine [Epipen] 0.3 mg IM ASDIRECTED PRN 04/28/19 [History] lamoTRIgine 100 mg PO DAILY 04/28/19 [History] ziprasidone HCL [Ziprasidone HCl] 1 cap PO DAILY 04/28/19 [History] Amitriptyline [Elavil] 25 mg PO BEDTIME 08/05/19 [History] Asenapine Maleate [Saphris] 5 mg SL BID 11/24/19 [History] Omeprazole 20 mg PO DAILY 11/24/19 [History] Albuterol [Ventolin HFA] 1 - 2 puff INH Q4H PRN 11/28/19 [History] Past Medical History - Past Health History Medical/Surgical History: Denies Medical/Surgical History HEENT History: Reports: Impaired Vision Other HEENT History: wears glasses Respiratory History: Reports: Asthma, COPD Gastrointestinal History: Reports: Irritable Bowel Syndrome Musculoskeletal History: Reports: Back Pain, Chronic, Other (See Below) (Chronic joint pain and joint condition) Other Musculoskeletal History: Shoulder dislocation. 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 Wears a brace on right knee. Social & Family History - Family History Family Medical History: Noncontributory - Caffeine Use Caffeine Use: Reports: Soda - Living Situation & Occupation Living situation: Reports: Single, Alone Occupation: Disabled Review of Systems - Review of Systems Review Of Systems: See Below Constitutional: Reports: No Symptoms Eyes: Reports: No Symptoms Ears: Reports: No Symptoms Nose: Reports: No Symptoms Mouth/Throat: Reports: No Symptoms Respiratory: Reports: No Symptoms Cardiovascular: Reports: No Symptoms GI/Abdominal: Reports: No Symptoms Genitourinary: Reports: No Symptoms Musculoskeletal: Reports: Foot Pain, Joint Swelling Skin: Reports: No Symptoms ED EXAM, GENERAL - Physical Exam Exam: See Below Exam Limited By: No Limitations General Appearance: Alert, No Apparent Distress Ears: Normal External Exam, Normal Canal Nose: Normal Inspection, Normal Mucosa, No Blood Throat/Mouth: Normal Inspection, Normal Lips, Normal Teeth Head: Atraumatic, Normocephalic Neck: Normal Inspection, Supple, Non-Tender, Full Range of Motion Respiratory/Chest: No Respiratory Distress, Lungs Clear, Normal Breath Sounds Cardiovascular: Normal Peripheral Pulses, Regular Rate, Rhythm, No Edema, No Gallop, No JVD, No Murmur GI/Abdominal: Normal Bowel Sounds, Soft, Non-Tender, No Organomegaly Back Exam: Normal Inspection, Full Range of Motion Extremities: Limited Range of Motion, Other (tenderness and swelling of the ankle and volar aspect of the left foot.) Neurological: Alert, Oriented, CN II-XII Intact Course - Vital Signs Text/Narrative:: Xray reviewed with patient, final reading is pending Ortho shoes and crutches provided in the ED Last Recorded V/S: Last Vital Signs Temp 36.1 C 03/21/20 20:30 Pulse 95 03/21/20 20:30 Resp 17 03/21/20 20:30 BP 135/85 03/21/20 20:30 Pulse Ox 100 03/21/20 20:30 - Orders/Labs/Meds Orders: Active Orders 24 hr Category Date Time Status Foot Comp Min 3V Lt [CR] Stat Exams 03/21/20 20:33 Taken Departure - Departure Time of Disposition: 21:30 Disposition: Home, Self-Care 01 Condition: Good Clinical Impression: Ankle sprain, Foot injury - Discharge Information Instructions: Crutch Use, Adult, [id number], Ankle Sprain, [id number] Referrals: PCP,None [Primary Care Provider] - Forms: ED Department Discharge Additional Instructions: Please read discharge instructions on ankle sprain and foot injury Use your crutches at all times Do not step on your right foot until your pain is gone Take 2 aleves and 2 tylenol 500 every 12 hours as needed for pain and swelling We will call you if there is any changes on your xray reading Sepsis Event Note (ED) - Focused Exam Vital Signs: Vital Signs Temp Pulse Resp BP Pulse Ox 03/21/20 20:30 36.1 C 95 17 135/85 100
[2020-03-21 23:09] VITALS: BP 143/87; PULSE 100
--- NOTE | 2020-03-22 11:25 | CR ---
INDICATION: Foot injury from a fall. LEFT FOOT: Three views of the left foot were obtained 03/21/20 - no comparison. An acute fracture, dislocation or other acute bone or joint abnormality was not identified. There is some minimal degenerative change at the first metatarsophalangeal joint. If symptoms persist - if occult fracture site is suspected clinically, reexamination in 10-14 days may be helpful. [facility]
[2020-03-22] MEDS ORDERED: Metoprolol Tartrate 25 MG Tab PO ONE (14:08)
== END 2020-03-21 21:35 | disposition home or self-care (01) ==
LOC: FB.ED 19:53
DX: S93.402A Sprain of unspecified ligament of left ankle, initial encounter (principal); J44.9 Chronic obstructive pulmonary disease, unspecified; F41.9 Anxiety disorder, unspecified; F31.9 Bipolar disorder, unspecified; Z91.09 Other allergy status, other than to drugs and biological substances; Z91.030 Bee allergy status; Z88.8 Allergy status to other drugs, medicaments and biological substances; Z79.899 Other long term (current) drug therapy; X50.1XXA Overexertion from prolonged static or awkward postures, initial encounter
CPT/HCPCS: 73630-LT; 99283-25

== ENCOUNTER 2020-05-24 00:20 | Emergency (ER) | payer OTHER, MEDICARE, MEDICAID ==
[2020-05-24] MEDS ORDERED: Ketorolac 60 MG/2 ML SDV IM ONE (01:00)
--- NOTE | 2020-05-24 01:22 | EDM.PDOC ---
ED HPI GENERAL MEDICAL PROBLEM - General Chief Complaint: Lower Extremity Injury/Pain Stated Complaint: FELL Time Seen by Provider: 05/24/20 01:10 Source of Information: Reports: Patient History Limitations: Reports: No Limitations - History of Present Illness INITIAL COMMENTS - FREE TEXT/NARRATIVE: Patient presented to the ED because of rt wrist and rt knee pain. He slipped and fell on the ice and landed on his rt side. He is not sure if he twisted his rt wrist and knee. R knee, R hip, R elbow & hand, lower back Pain Score (Numeric/FACES): 9 - Related Data Allergies Allergy/AdvReac Type Severity Reaction Status Date / Time adhesive Allergy Rash Verified 05/24/20 00:29 bee pollen Allergy Throat Verified 05/24/20 00:29 closes, Rash varenicline [From Chantix] Allergy Depression Verified 05/24/20 00:29 seroquel Allergy Nausea Uncoded 05/24/20 00:29 Home Meds: Home Meds Acetaminophen [Tylenol Extra Strength] 1,000 mg PO Q6H PRN 04/28/19 [History] EPINEPHrine [Epipen] 0.3 mg IM ASDIRECTED PRN 04/28/19 [History] lamoTRIgine 100 mg PO DAILY 04/28/19 [History] Amitriptyline [Elavil] 25 mg PO BEDTIME 08/05/19 [History] Omeprazole 20 mg PO DAILY 11/24/19 [History] Albuterol [Ventolin HFA] 1 - 2 puff INH Q4H PRN 11/28/19 [History] Cariprazine Hydrochloride [Vraylar] 1.5 mg PO BEDTIME 05/24/20 [History] Diclofenac Sodium 2 gm QID PRN 05/24/20 [History] tiZANidine [Zanaflex] 8 mg PO Q8H PRN 05/24/20 [History] traZODone 50 mg PO BEDTIME 05/24/20 [History] Past Medical History - Past Health History Medical/Surgical History: Denies Medical/Surgical History HEENT History: Reports: Impaired Vision Other HEENT History: wears glasses Cardiovascular History: Reports: Other (See Below) Other Cardiovascular History: occ palpitations Respiratory History: Reports: Asthma, COPD Gastrointestinal History: Reports: Irritable Bowel Syndrome Musculoskeletal History: Reports: Back Pain, Chronic, Other (See Below) Other Musculoskeletal History: Shoulder dislocation. 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 Wears a brace on right knee. Social & Family History - Family History Family Medical History: No Pertinent Family History - Tobacco Use Tobacco Use Status *Q: Current Every Day Tobacco User Years of Tobacco use: 18 Packs/Tins Daily: 1 - Caffeine Use Caffeine Use: Reports: Energy Drinks, Soda - Recreational Drug Use Recreational Drug Use: No - Living Situation & Occupation Living situation: Reports: Single, Alone Occupation: Disabled Review of Systems - Review of Systems Review Of Systems: See Below Constitutional: Reports: No Symptoms Ears: Reports: No Symptoms Nose: Reports: No Symptoms Mouth/Throat: Reports: No Symptoms Respiratory: Reports: No Symptoms Cardiovascular: Reports: No Symptoms GI/Abdominal: Reports: No Symptoms Genitourinary: Reports: No Symptoms Musculoskeletal: Reports: Back Pain, Hand Pain, Joint Pain, Muscle Stiffness Skin: Reports: No Symptoms Neurological: Reports: No Symptoms ED EXAM, GENERAL - Physical Exam Exam: See Below Exam Limited By: No Limitations General Appearance: Alert, No Apparent Distress Eye Exam: Bilateral Eye: PERRL Ears: Normal External Exam Nose: Normal Inspection, Normal Mucosa, No Blood Throat/Mouth: Normal Inspection, Normal Lips, Normal Teeth, Normal Gums Head: Atraumatic, Normocephalic Neck: Normal Inspection, Supple, Non-Tender, Full Range of Motion Respiratory/Chest: No Respiratory Distress, Lungs Clear, Normal Breath Sounds, No Accessory Muscle Use, Chest Non-Tender Cardiovascular: Normal Peripheral Pulses, Regular Rate, Rhythm, No Edema, No Gallop, No JVD, No Murmur GI/Abdominal: Normal Bowel Sounds, Soft, Non-Tender, No Organomegaly Back Exam: Normal Inspection, Full Range of Motion Extremities: Normal Inspection, Limited Range of Motion, Other (tenderness on the rt wrist and rt knee) Psychiatric: Normal Affect Skin Exam: Warm Lymphatic: No Adenopathy Course - Vital Signs Text/Narrative:: Toradol 60 mg IM x1 Xray Rt wrist and Rt knee-see result Last Recorded V/S: Last Vital Signs Temp 36.8 C 05/24/20 00:20 Pulse 105 H 05/24/20 00:20 Resp 18 05/24/20 00:20 BP 143/92 H 05/24/20 00:20 Pulse Ox 100 05/24/20 00:20 - Orders/Labs/Meds Orders: Active Orders 24 hr Category Date Time Status Knee 3V Rt [CR] Stat Exams 05/24/20 01:00 Ordered Wrist Comp Min 3V Rt [CR] Stat Exams 05/24/20 01:14 Ordered Meds: Medications Discontinued Medications Generic Name Dose Route Start Last Admin Trade Name Yajaira PRN Reason Stop Dose Admin Ketorolac Tromethamine 60 mg 05/24/20 01:00 05/24/20 01:04 Toradol IM 05/24/20 01:01 60 mg ONETIME ONE Administration Departure - Departure Time of Disposition: 01:30 Disposition: Home, Self-Care 01 Condition: Good Clinical Impression: Sprain of wrist, right, Right knee sprain - Discharge Information Instructions: Knee Sprain, Adult, [id number], Wrist Sprain, Adult Referrals: PCP,None [Primary Care Provider] - Forms: ED Department Discharge Additional Instructions: Please read discharge instructions on sprain Apply ice or heat whichever makes the pain feel better Take your diclofenac for pain and tizanidine for muscle spasm as prescribed We will call you if there is any changes on the xray readings Follow up as needed Sepsis Event Note (ED) - Evaluation Sepsis Screening Result: No Definite Risk - Focused Exam Vital Signs: Vital Signs Temp Pulse Resp BP Pulse Ox 05/24/20 00:20 36.8 C 105 H 18 143/92 H 100 - My Orders Last 24 Hours: My Active Orders 05/24/20 01:00 Knee 3V Rt [CR] Stat 05/24/20 01:14 Wrist Comp Min 3V Rt [CR] Stat - Assessment/Plan Last 24 Hours: My Active Orders 05/24/20 01:00 Knee 3V Rt [CR] Stat 05/24/20 01:14 Wrist Comp Min 3V Rt [CR] Stat
[2020-05-24 02:03] VITALS: BP 134/80; PULSE 80
--- NOTE | 2020-05-24 16:04 | CR ---
INDICATION: Fall, pain. RIGHT KNEE: Three views of the right knee were obtained 05/24/20 - no comparison. Minimal hypertrophic spur is noted off the patellofemoral joint surface of the femur with the joint space well maintained. Femorotibial joint spaces are well maintained with no significant hypertrophic changes on the AP and lateral view. An acute fracture or dislocation or definite joint effusion was not identified although there is a very slight bulge at the suprapatellar bursa which could represent a very minimal knee joint effusion. IMPRESSION: Suggestion of a minimal joint effusion with very minimal hypertrophic change at the medial femoral joint surface of the patellofemoral joint. MTDD
--- NOTE | 2020-05-24 16:07 | CR ---
INDICATION: Fall, right wrist pain. RIGHT WRIST: Three views of the right wrist were obtained 05/24/20 and revealed no evidence of fracture, dislocation or other significant appearing bone or joint abnormality. If symptoms persist - if occult fracture site is suspected clinically, reexamination in 10-14 days may be helpful. MTDD
== END 2020-05-24 01:55 | disposition home or self-care (01) ==
LOC: FB.ED 00:20
DX: S63.501A Unspecified sprain of right wrist, initial encounter (principal); S83.91XA Sprain of unspecified site of right knee, initial encounter; J44.9 Chronic obstructive pulmonary disease, unspecified; F31.9 Bipolar disorder, unspecified; F41.9 Anxiety disorder, unspecified; E66.9 Obesity, unspecified; Z68.33 Body mass index [BMI] 33.0-33.9, adult; F17.210 Nicotine dependence, cigarettes, uncomplicated; Z91.048 Other nonmedicinal substance allergy status; Z91.030 Bee allergy status; Z88.8 Allergy status to other drugs, medicaments and biological substances; Z79.899 Other long term (current) drug therapy; W00.0XXA Fall on same level due to ice and snow, initial encounter
CPT/HCPCS: 73110-RT; 73562-RT; 96372; 99283-25; J1885

== ENCOUNTER 2020-06-08 21:31 | Emergency (ER) | payer MEDICARE, MEDICAID ==
--- NOTE | 2020-06-08 21:45 | EDM.PDOC ---
ED HPI GENERAL MEDICAL PROBLEM - General Stated Complaint: BACK PAIN Time Seen by Provider: 06/08/20 21:44 Source of Information: Reports: Patient History Limitations: Reports: No Limitations - History of Present Illness INITIAL COMMENTS - FREE TEXT/NARRATIVE: 34-year-old male with history of chronic back pain and chronic knee and hip pain who reports worsening of his chronic back pain with back spasm over the past 2 days. He reports that 2 days ago he helped his friend move a couple of couches and today he had to a down the water in his 30 gallon tank and he feels that this exacerbated his back pain. He has taken his tizanidine without really any relief and he presents to the emergency department via private vehicle by his significant other and he is requesting a Toradol shot to help him with his pain. He has had no bowel or bladder control problems. He finds that it is difficult to walk but that is because of the pain. He has no real weakness in his legs. No localized area of weakness or numbness. No nausea or vomiting. No dysuria or hematuria. The pain is worse with movement and with palpation. He is rating the pain as 10/10. It is a spasm type pain that seems to radiate up his back. Her no other associated signs or symptoms. There are no other modifying factors. Onset: Other (Ongoing back pain for years (he states since the age of 13) but worse over the past 2 days) Duration: Getting Worse Location: Reports: Back Quality: Reports: Ache, Sharp, Other (Spasm-like) Severity: Severe Improves with: Reports: Rest Worsens with: Reports: Other (Palpation), Movement Context: Reports: Other (As above.) Associated Symptoms: Reports: No Other Symptoms Treatments [place]: Reports: Other Medication(s) (Tizanidine) - Related Data Allergies Allergy/AdvReac Type Severity Reaction Status Date / Time adhesive Allergy Rash Verified 06/08/20 23:07 bee pollen Allergy Throat Verified 06/08/20 23:07 closes, Rash varenicline [From Chantix] Allergy Depression Verified 06/08/20 23:07 seroquel Allergy Nausea Uncoded 06/08/20 23:07 Home Meds: Home Meds Acetaminophen [Tylenol Extra Strength] 1,000 mg PO Q6H PRN 04/28/19 [History] EPINEPHrine [Epipen] 0.3 mg IM ASDIRECTED PRN 04/28/19 [History] lamoTRIgine 100 mg PO DAILY 04/28/19 [History] Amitriptyline [Elavil] 25 mg PO BEDTIME 08/05/19 [History] Omeprazole 20 mg PO DAILY 11/24/19 [History] Albuterol [Ventolin HFA] 1 - 2 puff INH Q4H PRN 11/28/19 [History] Cariprazine Hydrochloride [Vraylar] 1.5 mg PO BEDTIME 05/24/20 [History] Diclofenac Sodium 2 gm TOP QID PRN 05/24/20 [History] tiZANidine [Zanaflex] 4 mg PO Q8H PRN #30 tab 05/24/20 [Rx] traZODone 50 - 100 mg PO BEDTIME PRN 05/24/20 [History] Naproxen Sodium [Aleve] 220 mg PO ASDIRECTED PRN 06/08/20 [History] Past Medical History HEENT History: Reports: Impaired Vision Other HEENT History: wears glasses Respiratory History: Reports: Asthma, COPD Gastrointestinal History: Reports: Irritable Bowel Syndrome Musculoskeletal History: Reports: Back Pain, Chronic, Other (See Below) Other Musculoskeletal History: Shoulder dislocation. 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 Wears a brace on right knee. Social & Family History - Tobacco Use Tobacco Use Status *Q: Current Every Day Tobacco User - Caffeine Use Caffeine Use: Reports: Energy Drinks, Soda - Alcohol Use Alcohol Use History: Yes Alcohol Use Frequency: Rarely - Living Situation & Occupation Living situation: Reports: with Significant Other Occupation: Disabled ED ROS GENERAL - Review of Systems Review Of Systems: See Below Constitutional: Reports: No Symptoms HEENT: Reports: No Symptoms Respiratory: Reports: No Symptoms Cardiovascular: Reports: No Symptoms Endocrine: Reports: No Symptoms GI/Abdominal: Reports: No Symptoms, Other (No bowel control problems.) : Reports: No Symptoms, Other (No bladder control problems.). Denies: Flank Pain Musculoskeletal: Reports: Back Pain, Other (Lumbar back spasm.) Skin: Reports: No Symptoms Neurological: Reports: No Symptoms Hematologic/Lymphatic: Reports: No Symptoms Immunologic: Reports: No Symptoms ED EXAM,LOWER BACK PAIN/INJURY - Physical Exam Exam: See Below Exam Limited By: No Limitations General Appearance: Alert, WD/WN, Moderate Distress (Appears in some pain. He does not appear toxic.) Eye Exam: Bilateral Eye: EOMI, Normal Inspection Ears: Normal External Exam, Hearing Grossly Normal Nose: Normal Inspection, Normal Mucosa, No Blood Throat/Mouth: Normal Inspection, Normal Lips, Normal Oropharynx, Normal Voice, No Airway Compromise Head: Atraumatic, Normocephalic Neck: Normal Inspection, Supple, Non-Tender, Full Range of Motion Respiratory/Chest: No Respiratory Distress, Lungs Clear, Normal Breath Sounds, No Accessory Muscle Use, Chest Non-Tender Cardiovascular: Normal Peripheral Pulses, Regular Rate, Rhythm, No Murmur GI/Abdominal: Normal Bowel Sounds, Soft, Non-Tender, No Mass Back Exam: Muscle Spasm, Paraspinal Tenderness (Over lumbar area.) Extremities: Normal Inspection, Normal Range of Motion, Non-Tender, No Pedal Edema, Normal Capillary Refill Neurological: Alert, Normal Dorsiflexion, CN II-XII Intact, Normal Plantar Flexion, No Motor/Sensory Deficits, Oriented x 3 Skin Exam: Warm, Dry, Intact, Normal Color, No Rash Course - Vital Signs Last Recorded V/S: Last Vital Signs Temp 36.7 C 06/08/20 21:50 Pulse 91 06/08/20 21:50 Resp 18 06/08/20 21:50 BP 161/94 H 06/08/20 21:50 Pulse Ox 96 06/08/20 21:50 - Orders/Labs/Meds Meds: Medications Discontinued Medications Generic Name Dose Route Start Last Admin Trade Name Frantzq PRN Reason Stop Dose Admin Diazepam 5 mg 06/08/20 22:01 06/08/20 22:08 Valium. PO 06/08/20 22:02 5 mg ONETIME ONE Administration Ketorolac Tromethamine 60 mg 06/08/20 22:01 06/08/20 22:08 Toradol IM 06/08/20 22:02 60 mg ONETIME ONE Administration - Re-Assessments/Exams Free Text/Narrative Re-Assessment/Exam: 06/08/20 22:00: Patient with long-standing history of chronic back pain presents with acute exacerbation of his chronic back pain with back spasms. There is no radicular pain and there are no concerning findings and no neurologic symptoms. I will treat the patient with Toradol 60 mg IM and Valium 5 mg by mouth. He is told to take his usual medication for his back pain and he should do range of motion and stretching exercises as he has told to do in the past. He also should follow-up with his primary provider. Precautions and reasons for return to the emergency department were discussed with the patient while he was in the emergency department and were detailed in the patient's discharge instructions. Departure - Departure Time of Disposition: :20 Disposition: Home, Self-Care 01 Condition: Good (Stable) Clinical Impression: Acute exacerbation of chronic low back pain, Back muscle spasm - Discharge Information Instructions: Muscle Cramps and Spasms, [id number], Chronic Back Pain, [id number] Referrals: PCP,None [Primary Care Provider] - Forms: ED Department Discharge Additional Instructions: You appear to be having an acute exacerbation of your chronic back pain with muscle spasms. You should take the medications that you have at home as needed for your pain and muscle spasm. You should also do gentle stretching and range of motion exercises with your back. Follow-up with your primary provider. Back to the emergency department for trouble problems, leg weakness, fever or any other concerning sign or symptom.
[2020-06-08] MEDS: Diazepam 5 MG Tab PO ONE (22:08)
[2020-06-08] MEDS: Ketorolac 60 MG/2 ML SDV IM ONE (22:08)
[2020-06-08 23:02] VITALS: BP 161/94; PULSE 91
== END 2020-06-08 22:20 | disposition home or self-care (01) ==
LOC: FB.ED 21:31
DX: M54.5 Low back pain (principal); G89.29 Other chronic pain; M62.830 Muscle spasm of back; F17.200 Nicotine dependence, unspecified, uncomplicated; J44.9 Chronic obstructive pulmonary disease, unspecified; R56.9 Unspecified convulsions; F31.9 Bipolar disorder, unspecified; F41.9 Anxiety disorder, unspecified; E66.9 Obesity, unspecified; Z68.32 Body mass index [BMI] 32.0-32.9, adult; Z91.048 Other nonmedicinal substance allergy status; Z91.030 Bee allergy status; Z88.8 Allergy status to other drugs, medicaments and biological substances; Z79.899 Other long term (current) drug therapy
CPT/HCPCS: 96372; 99282; 99283; A9270; J1885

== ENCOUNTER 2020-08-05 23:02 | Emergency (ER) | payer MEDICARE, MEDICAID ==
--- NOTE | 2020-08-05 23:50 | EDM.PDOCBH ---
ED HPI GENERAL MEDICAL PROBLEM - General Chief Complaint: Behavioral/Psych Stated Complaint: OVERDOSE ON MEDICATION Time Seen by Provider: 08/05/20 23:30 Source of Information: Reports: Patient, Family - History of Present Illness INITIAL COMMENTS - FREE TEXT/NARRATIVE: c/o overdose pt took 16 tabs of hydroxyzine 25 mg, states he does not want to live here with javier was admitted one month ago to [place] to [facility] for 9 days after presenting to ED there with SI, previously admitted two months ago to [place] to [facility] for 9 days meds rx'ed by psychiatrist Mine Nevarez out [facility], sees counselor Kimberli weekly in person out [facility] locally has h/o bipolar I with moderate jared, depression, hyperventilation syndrome, suicidal ideation, psychosis last serum and urine drug screen here in [facility] was 2014, positive only for TCAs used alcohol and THC in past, denies drug use now except cigs 1 ppd and 12 regular Mountain Dews daily here with javier, lived together for 4y, not working says he is "under a lot of stress" from finances and doctors - Related Data Allergies Allergy/AdvReac Type Severity Reaction Status Date / Time adhesive Allergy Rash Verified 08/05/20 23:25 bee pollen Allergy Throat Verified 08/05/20 23:25 closes, Rash varenicline [From Chantix] Allergy Depression Verified 08/05/20 23:25 seroquel Allergy Nausea Uncoded 08/06/20 19:43 Home Meds: Home Meds EPINEPHrine [Epipen] 0.3 mg IM ASDIRECTED PRN 04/28/19 [History] lamoTRIgine 100 mg PO DAILY 04/28/19 [History] Amitriptyline [Elavil] 25 mg PO BEDTIME 08/05/19 [History] Omeprazole 20 mg PO DAILY 11/24/19 [History] tiZANidine [Zanaflex] 4 mg PO Q8H PRN #30 tab 05/24/20 [Rx] Naproxen Sodium [Aleve] 220 mg PO ASDIRECTED PRN 06/08/20 [History] Cariprazine Hydrochloride [Vraylar] 3 mg PO BEDTIME 08/06/20 [History] hydrOXYzine HCL [Atarax] 25 mg PO QID 08/06/20 [History] Past Medical History - Past Health History Medical/Surgical History: Denies Medical/Surgical History HEENT History: Reports: Impaired Vision Other HEENT History: Wears glasses. Cardiovascular History: Reports: Other (See Below) Other Cardiovascular History: Palpitations. Respiratory History: Reports: Asthma, COPD Gastrointestinal History: Reports: Irritable Bowel Syndrome Musculoskeletal History: Reports: Back Pain, Chronic, Other (See Below) Other Musculoskeletal History: Shoulder dislocation. Scoliosis. Neurological History: Reports: Migraines, Seizure, Other (See Below) Other Neuro History: Pseudoseizure. Psychiatric History: Reports: Anxiety, Bipolar, Emotional Problems, Mood Swings, Panic Attack, Psych Hospitalization(s), PTSD, Suicide Attempt, Suicidal Ideation Other Psychiatric History: Insomnia. Intermittent explosive disorder. 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 Wears a brace on right knee. Social & Family History - Family History Family Medical History: No Pertinent Family History - Tobacco Use Years of Tobacco use: 19 - Caffeine Use Caffeine Use: Reports: Energy Drinks, Soda - Living Situation & Occupation Living situation: Reports: with Significant Other Occupation: Disabled ED ROS GENERAL - Review of Systems Review Of Systems: See Below Constitutional: Reports: No Symptoms HEENT: Reports: No Symptoms Respiratory: Reports: No Symptoms Cardiovascular: Reports: No Symptoms Endocrine: Reports: No Symptoms GI/Abdominal: Reports: No Symptoms : Reports: No Symptoms Musculoskeletal: Reports: No Symptoms Skin: Reports: No Symptoms Neurological: Reports: No Symptoms Psychiatric: Denies: Agitation, Anxiety Hematologic/Lymphatic: Reports: No Symptoms Immunologic: Reports: No Symptoms ED EXAM, BEHAVIORAL HEALTH - Physical Exam Exam: See Below Exam Limited By: No Limitations General Appearance: Alert, WD/WN Ears: Hearing Grossly Normal Nose: Normal Inspection Throat/Mouth: Normal Lips, Normal Voice, No Airway Compromise Head: Atraumatic, Normocephalic Neck: Normal Inspection, Supple, Non-Tender, Full Range of Motion. No: Lymphadenopathy (R), Lymphadenopathy (L) Respiratory/Chest: No Respiratory Distress, Lungs Clear, Normal Breath Sounds, No Accessory Muscle Use Cardiovascular: Regular Rate, Rhythm, No Edema, No Gallop, No JVD, No Murmur GI/Abdominal: Soft, Non-Tender, No Distention Back Exam: Normal Inspection, Full Range of Motion. No: CVA Tenderness (R), CVA Tenderness (L) Extremities: Normal Inspection, Non-Tender, No Pedal Edema Neurological: Alert, Normal Mood/Affect, CN II-XII Intact, Normal Cognition, No Motor/Sensory Deficits, Oriented x 3 Psychiatric: Alert, Other (cooperative, normal speech pattern, good eye contact, somewhat morose) Skin Exam: Warm, Dry, Intact COURSE, BEHAVIORAL HEALTH COMP - Course Vital Signs: Last Vital Signs Temp 36.5 C 08/06/20 05:35 Pulse 72 08/06/20 08:22 Resp 16 08/06/20 08:22 BP 135/82 08/06/20 08:22 Pulse Ox 100 08/06/20 08:22 Orders, Labs, Meds: Laboratory Tests 08/05/20 08/05/20 08/05/20 Range/Units 23:55 23:55 23:55 WBC 11.7 H (3.2-10.1) x10-3/uL RBC 4.97 (3.90-5.90) x10(6)uL Hgb 15.3 (12.9-17.7) g/dL Hct 47.0 (38.3-50.1) % MCV 94.6 (80.8-98.7) fL MCH 30.9 (27.0-33.3) pg MCHC 32.6 (28.7-35.3) g/dL RDW 12.7 (12.4-15.0) % Plt Count 190 (117-477) x10(3)uL MPV 7.9 (6.7-11.0) fL Neut % (Auto) 69.9 (40.3-71.8) % Lymph % (Auto) 25.0 (15.8-45.3) % Piatt % (Auto) 4.2 L (5.5-15.2) % Eos % (Auto) 0.3 (0.1-6.8) % Baso % (Auto) 0.6 (0.3-3.8) % Neut # (Auto) 8.2 H (1.7-6.9) x10-3/uL Lymph # (Auto) 2.9 (0.5-4.5) x10-3/uL Piatt # (Auto) 0.5 (0.0-1.2) x10-3/uL Eos # (Auto) 0.0 (0.0-0.6) x10-3/uL Baso # (Auto) 0.1 (0.0-0.3) x10-3/uL Sodium 143 (135-145) mmol/L Potassium 3.7 (3.5-5.3) mmol/L Chloride 104 (100-110) mmol/L Carbon Dioxide 27 (21-32) mmol/L BUN 10 (7-18) mg/dL Creatinine 1.0 (0.70-1.30) mg/dL Est Cr Clr Drug Dosing TNP Estimated GFR (MDRD) > 60 (>60) BUN/Creatinine Ratio 10.0 (9-20) Glucose 89 (80-116) mg/dL Calcium 8.6 (8.6-10.2) mg/dL Total Bilirubin 0.4 (0.1-1.3) mg/dL AST 19 D (5-25) IU/L ALT 34 D (12-36) U/L Alkaline Phosphatase 63 (56-112) IU/L Total Protein 7.2 (6.0-8.0) g/dL Albumin 4.1 (3.5-5.2) g/dL Globulin 3.1 g/dL Albumin/Globulin Ratio 1.3 TSH, Ultra Sensitive 0.79 (0.36-3.74) IU/mL Urine Color (YELLOW) Urine Appearance (CLEAR) Urine pH (5.0-6.5) Ur Specific [place] (1.010-1.025) Urine Protein (NEGATIVE) mg/dL Urine Glucose (UA) (NORMAL) mg/dL Urine Ketones (NEGATIVE) mg/dL Urine Occult Blood (NEGATIVE) Urine Nitrite (NEGATIVE) Urine Bilirubin (NEGATIVE) Urine Urobilinogen (NEGATIVE) mg/dL Ur Leukocyte Esterase (NEGATIVE) Urine RBC (0-5) Urine WBC (0-5) Ur Squamous Epith Cells (NS,R,O) Urine Bacteria (NS) Salicylates 3.0 (<2.8) mg/dL Urine Opiates Screen (NEGATIVE) Ur Oxycodone Screen (NEGATIVE) Ur Propoxyphene Screen (NEGATIVE) Acetaminophen < 2 L (<2) ug/mL Ur Barbituates Screen (NEGATIVE) Ur Tricyclics Screen (NEGATIVE) Ur Phencyclidine Scrn (NEGATIVE) Ur Amphetamine Screen (NEGATIVE) Urine MDMA Screen (NEGATIVE) U Benzodiazepines Scrn (NEGATIVE) U Cocaine Metab Screen (NEGATIVE) U Marijuana (THC) Screen (NEGATIVE) Ethyl Alcohol < 0.03 (<0.03) % SARS-CoV-2 RNA (TAMI) (NEGATIVE) 08/05/20 08/06/20 08/06/20 Range/Units 23:55 00:10 00:10 WBC (3.2-10.1) x10-3/uL RBC (3.90-5.90) x10(6)uL Hgb (12.9-17.7) g/dL Hct (38.3-50.1) % MCV (80.8-98.7) fL MCH (27.0-33.3) pg MCHC (28.7-35.3) g/dL RDW (12.4-15.0) % Plt Count (117-477) x10(3)uL MPV (6.7-11.0) fL Neut % (Auto) (40.3-71.8) % Lymph % (Auto) (15.8-45.3) % Piatt % (Auto) (5.5-15.2) % Eos % (Auto) (0.1-6.8) % Baso % (Auto) (0.3-3.8) % Neut # (Auto) (1.7-6.9) x10-3/uL Lymph # (Auto) (0.5-4.5) x10-3/uL Piatt # (Auto) (0.0-1.2) x10-3/uL Eos # (Auto) (0.0-0.6) x10-3/uL Baso # (Auto) (0.0-0.3) x10-3/uL Sodium (135-145) mmol/L Potassium (3.5-5.3) mmol/L Chloride (100-110) mmol/L Carbon Dioxide (21-32) mmol/L BUN (7-18) mg/dL Creatinine (0.70-1.30) mg/dL Est Cr Clr Drug Dosing Estimated GFR (MDRD) (>60) BUN/Creatinine Ratio (9-20) Glucose (80-116) mg/dL Calcium (8.6-10.2) mg/dL Total Bilirubin (0.1-1.3) mg/dL AST (5-25) IU/L ALT (12-36) U/L Alkaline Phosphatase (56-112) IU/L Total Protein (6.0-8.0) g/dL Albumin (3.5-5.2) g/dL Globulin g/dL Albumin/Globulin Ratio TSH, Ultra Sensitive (0.36-3.74) IU/mL Urine Color Yellow (YELLOW) Urine Appearance Clear (CLEAR) Urine pH 6.5 (5.0-6.5) Ur Specific [place] 1.010 (1.010-1.025) Urine Protein Negative (NEGATIVE) mg/dL Urine Glucose (UA) Normal (NORMAL) mg/dL Urine Ketones Negative (NEGATIVE) mg/dL Urine Occult Blood Negative (NEGATIVE) Urine Nitrite Negative (NEGATIVE) Urine Bilirubin Negative (NEGATIVE) Urine Urobilinogen Normal (NEGATIVE) mg/dL Ur Leukocyte Esterase Negative (NEGATIVE) Urine RBC 0-5 (0-5) Urine WBC 0-5 (0-5) Ur Squamous Epith Cells Occasional (NS,R,O) Urine Bacteria Rare H (NS) Salicylates (<2.8) mg/dL Urine Opiates Screen Negative (NEGATIVE) Ur Oxycodone Screen Negative (NEGATIVE) Ur Propoxyphene Screen Negative (NEGATIVE) Acetaminophen (<2) ug/mL Ur Barbituates Screen Negative (NEGATIVE) Ur Tricyclics Screen Negative (NEGATIVE) Ur Phencyclidine Scrn Negative (NEGATIVE) Ur Amphetamine Screen Negative (NEGATIVE) Urine MDMA Screen Negative (NEGATIVE) U Benzodiazepines Scrn Negative (NEGATIVE) U Cocaine Metab Screen Negative (NEGATIVE) U Marijuana (THC) Screen Negative (NEGATIVE) Ethyl Alcohol (<0.03) % SARS-CoV-2 RNA (TAMI) Negative (NEGATIVE) Medications Discontinued Medications Generic Name Dose Route Start Last Admin Trade Name Freq PRN Reason Stop Dose Admin Lamotrigine 100 mg 08/06/20 07:40 08/06/20 08:04 Lamictal PO 08/06/20 07:41 Not Given NOW ONE Lamotrigine 100 mg 08/06/20 08:03 08/06/20 08:04 Lamotrigine PO 08/06/20 08:04 100 mg ONETIME ONE Administration Nicotine Polacrilex 2 mg 08/06/20 02:12 08/06/20 08:10 Nicorelief CHEW 2 mg Q1H PRN Administration tobacco cessation Pantoprazole Sodium 40 mg 08/06/20 07:40 08/06/20 08:04 Protonix PO 08/06/20 07:41 40 mg NOW ONE Administration Re-Assessment/Re-Exam: pt with excess caffeine use, also smoker, no other substance use except OD tonight no sedation or side effects of hydroxyzine, maximum daily dose of hydroxyzine is 400 mg (which is what pt took), maximum single does is 100 mg pt did bring in his pill bottle for hydroxyzine which is 25 mg dose size no active medical problems except his ongoing mood disorder, no jared or psychosis present this evening labs and EKG are unremarkable, pt is medically cleared ingestion was 10p, poison control stated that pt could be cleared after 2 hours if no sedation, which is not present pt eventually accepted at [facility], I spoke with psychiatrist there who had reviewed the paperwork, he accepted pt in transfer, pt willing to go, he and his girlfriend have been awake all night and waiting in exam room, pt cooperative here, pt interested in hospitalization Departure - Departure Time of Disposition: 05:35 Disposition: DC/Tfer to Psych Hosp/Unit 65 Condition: Good Clinical Impression: Overdose, Suicidal ideation - Discharge Information *PRESCRIPTION DRUG MONITORING PROGRAM REVIEWED*: Not Applicable *COPY OF PRESCRIPTION DRUG MONITORING REPORT IN PATIENT CLARITA: Not Applicable Referrals: Jimbo Sood NP [Primary Care Provider] - Forms: ED Department Discharge Sepsis Event Note (ED) - Evaluation Sepsis Screening Result: No Definite Risk
[2020-08-06 00:24] LABS: ACETAMINOPHEN < 2 ug/mL (<2)
[2020-08-06] MEDS: Nicotine Polacrilex 2 MG Gum CHEW PRN ×2 (02:25→08:10)
[2020-08-06] MEDS ORDERED: Pantoprazole 40 MG Tab.CR PO ONE (07:40)
[2020-08-06] MEDS ORDERED: lamoTRIgine 100 MG Tab PO ONE (08:03)
[2020-08-06 08:23] VITALS: BP 135/82; PULSE 72
== END 2020-08-06 09:08 ==
LOC: FB.ED 23:02
DX: T43.592A Poisoning by other antipsychotics and neuroleptics, intentional self-harm, initial encounter (principal); J44.9 Chronic obstructive pulmonary disease, unspecified; R56.9 Unspecified convulsions; E66.9 Obesity, unspecified; Z68.33 Body mass index [BMI] 33.0-33.9, adult; Z91.048 Other nonmedicinal substance allergy status; Z91.030 Bee allergy status; Z88.8 Allergy status to other drugs, medicaments and biological substances; Z20.822 Contact with and (suspected) exposure to COVID-19; Z72.0 Tobacco use
CPT/HCPCS: 36415; 80053; 80143; 80179; 80305-QW; 80307; 81001; 84443; 85025; 93005; 99285; 99285-25; A9270-GY; U0002

== ENCOUNTER 2020-10-02 20:51 | Emergency (ER) | payer MEDICARE, MEDICAID ==
[2020-10-02] MEDS ORDERED: Cyclobenzaprine 10 MG Tab PO ONE (21:10)
[2020-10-02] MEDS ORDERED: Ketorolac 60 MG/2 ML SDV IM ONE (21:10)
[2020-10-02] MEDS ORDERED: Acetaminophen 500 MG Tab PO ONE (21:10)
[2020-10-02 21:11] VITALS: BP 131/79; PULSE 104
--- NOTE | 2020-10-02 21:17 | EDM.PDOC ---
ED HPI GENERAL MEDICAL PROBLEM - General Chief Complaint: Back Pain or Injury Stated Complaint: BACK PAIN Time Seen by Provider: 10/02/20 21:00 Source of Information: Reports: Patient History Limitations: Reports: No Limitations - History of Present Illness INITIAL COMMENTS - FREE TEXT/NARRATIVE: c/o neck pain x 8h pt awoke at 1p, said he had soreness in his L lateral neck, down his back, around his abd did not take any meds at home shower did not help says he takes Aleve at home, not able to take ibuprofen d/t GI upset wanted a Toradol injection today and a muscle relaxant MRI l-spine 3m ago was negative - Related Data Allergies Allergy/AdvReac Type Severity Reaction Status Date / Time adhesive Allergy Rash Verified 08/05/20 23:25 bee pollen Allergy Throat Verified 08/05/20 23:25 closes, Rash varenicline [From Chantix] Allergy Depression Verified 08/05/20 23:25 seroquel Allergy Nausea Uncoded 08/06/20 19:43 Home Meds: Home Meds EPINEPHrine [Epipen] 0.3 mg IM ASDIRECTED PRN 04/28/19 [History] lamoTRIgine 100 mg PO DAILY 04/28/19 [History] Amitriptyline [Elavil] 25 mg PO BEDTIME 08/05/19 [History] Omeprazole 20 mg PO DAILY 11/24/19 [History] tiZANidine [Zanaflex] 4 mg PO Q8H PRN #30 tab 05/24/20 [Rx] Naproxen Sodium [Aleve] 220 mg PO ASDIRECTED PRN 06/08/20 [History] Cariprazine Hydrochloride [Vraylar] 3 mg PO BEDTIME 08/06/20 [History] hydrOXYzine HCL [Atarax] 25 mg PO QID 08/06/20 [History] Cyclobenzaprine [Flexeril] 10 mg PO TID PRN #15 tab 10/02/20 [Rx] Past Medical History - Past Health History Medical/Surgical History: Denies Medical/Surgical History HEENT History: Reports: Impaired Vision Other HEENT History: Wears glasses. Cardiovascular History: Reports: Other (See Below) Other Cardiovascular History: Palpitations. Respiratory History: Reports: Asthma, COPD Gastrointestinal History: Reports: Irritable Bowel Syndrome Musculoskeletal History: Reports: Back Pain, Chronic, Other (See Below) Other Musculoskeletal History: Shoulder dislocation. Scoliosis. Leg problems, uses a walker at times. Neurological History: Reports: Migraines, Seizure, Other (See Below) Other Neuro History: Pseudoseizure. Psychiatric History: Reports: Anxiety, Bipolar, Emotional Problems, Mood Swings, Panic Attack, Psych Hospitalization(s), PTSD, Suicide Attempt, Suicidal Ideation Other Psychiatric History: Insomnia. Intermittent explosive disorder. 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 Wears a brace on right knee. Social & Family History - Family History Family Medical History: No Pertinent Family History - Tobacco Use Years of Tobacco use: 19 Packs/Tins Daily: 1 - Caffeine Use Caffeine Use: Reports: Energy Drinks, Soda - Living Situation & Occupation Living situation: Reports: with Significant Other Occupation: Disabled ED ROS GENERAL - Review of Systems Review Of Systems: See Below Constitutional: Reports: No Symptoms HEENT: Reports: No Symptoms Respiratory: Reports: No Symptoms Cardiovascular: Reports: No Symptoms Endocrine: Reports: No Symptoms GI/Abdominal: Reports: No Symptoms : Reports: No Symptoms Musculoskeletal: Reports: Neck Pain, Back Pain Skin: Reports: No Symptoms Neurological: Reports: No Symptoms Psychiatric: Reports: No Symptoms Hematologic/Lymphatic: Reports: No Symptoms Immunologic: Reports: No Symptoms ED EXAM, UPPER BACK/NECK PAIN - Physical Exam Exam: See Below Exam Limited By: No Limitations General Appearance: Alert, WD/WN, No Apparent Distress Head Exam: Atraumatic, Normocephalic Neck Exam: Full Range of Motion, Normal Alignment, Normal Inspection Cardiovascular/Respiratory: Regular Rate, Rhythm Back Exam: Normal Inspection, Other (tall, leaning forward, nonspecific nonlocalized tender of the R lateral neck without spasm, no localzied tender or spasm of the mid and lower back, mood stable, mild anxiety) Extremities: Normal Inspection Neurologic: No Motor/Sensory Deficits, Alert, Oriented x 3, Other Skin Exam: Normal Color, Warm/Dry Lymphatic: No Adenopathy Course - Vital Signs Last Recorded V/S: Last Vital Signs Temp 36.6 C 10/02/20 21:00 Pulse 104 H 10/02/20 21:00 Resp 18 10/02/20 21:00 BP 131/79 10/02/20 21:00 Pulse Ox 99 10/02/20 21:00 - Orders/Labs/Meds Meds: Medications Discontinued Medications Generic Name Dose Route Start Last Admin Trade Name Yajaira PRN Reason Stop Dose Admin Acetaminophen 1,000 mg 10/02/20 21:10 Acetaminophen 500 Mg Tab PO 10/02/20 21:11 ONETIME ONE Cyclobenzaprine HCl 10 mg 10/02/20 21:10 Cyclobenzaprine 10 Mg Tab PO 10/02/20 21:11 ONETIME ONE Ketorolac Tromethamine 60 mg 10/02/20 21:10 Ketorolac 60 Mg/2 Ml Sdv IM 10/02/20 21:11 ONETIME ONE - Re-Assessments/Exams Free Text/Narrative Re-Assessment/Exam: 10/02/20 21:21 pt appears to be doing well with minor neck strain from likely sleeping with neck at a angle, use of neutral position discussed pt satisfied with Toradol here and Rx for cyclobenzaprine which he has taken in the past Departure - Departure Time of Disposition: 21:12 Disposition: Home, Self-Care 01 Condition: Good Clinical Impression: Neck sprain - Discharge Information *PRESCRIPTION DRUG MONITORING PROGRAM REVIEWED*: Not Applicable *COPY OF PRESCRIPTION DRUG MONITORING REPORT IN PATIENT CLARITA: Not Applicable Prescriptions: Cyclobenzaprine [Flexeril] 10 mg PO TID PRN #15 tab PRN Reason: Spasms Instructions: Muscle Strain Referrals: PCP,None [Ordering Only Provider] - Additional Instructions: For pain and inflammation, take Aleve 2 tabs in the morning, 2 tabs in the evening, and 1 tab in the middle of the day. Take for 1-2 days, longer if n eeded. For spasm, take cyclobenzaprine 10 mg 1 tab 3 times a day as needed up to 5 days. Use heating pad or moist compress for 5 minutes 4 times a day for 1-2 days. Sleep with head in a neutral position. See your doctor in 2 days as needed for further recommendations. Sepsis Event Note (ED) - Focused Exam Vital Signs: Vital Signs Temp Pulse Resp BP Pulse Ox 10/02/20 21:00 36.6 C 104 H 18 131/79 99
== END 2020-10-02 21:30 | disposition home or self-care (01) ==
LOC: FB.ED 20:51
DX: S13.4XXA Sprain of ligaments of cervical spine, initial encounter (principal); E66.9 Obesity, unspecified; Z72.0 Tobacco use; Z79.899 Other long term (current) drug therapy; Z91.030 Bee allergy status; Z88.8 Allergy status to other drugs, medicaments and biological substances; Z68.34 Body mass index [BMI] 34.0-34.9, adult; X58.XXXA Exposure to other specified factors, initial encounter
CPT/HCPCS: 96372; 99283; A9270; J1885

== ENCOUNTER 2020-10-24 19:31 | Emergency (ER) | payer MEDICARE, MEDICAID ==
[2020-10-24 19:51] VITALS: BP 142/90; PULSE 101
--- NOTE | 2020-10-24 20:24 | EDM.PDOC ---
ED HPI GENERAL MEDICAL PROBLEM - General Chief Complaint: Chest Pain Stated Complaint: CHEST PAIN Time Seen by Provider: 10/24/20 19:50 Source of Information: Reports: Patient History Limitations: Reports: No Limitations - History of Present Illness INITIAL COMMENTS - FREE TEXT/NARRATIVE: Patient presented to the ED because of chest pain and palpitations for 1 week. The pain is sharp,6/10/over the sternal area and worse with breathing and movements. There is no N/V,diaphoresis or dyspnea. He is concerned because he was just started on a new psych medicine. Chest Pain Score (Numeric/FACES): 7 - Related Data Allergies Allergy/AdvReac Type Severity Reaction Status Date / Time adhesive Allergy Rash Verified 10/02/20 21:32 bee pollen Allergy Throat Verified 10/02/20 21:32 closes, Rash cariprazine [From Vraylar] Allergy Nausea, Verified 10/02/20 21:33 Rash varenicline [From Chantix] Allergy Depression Verified 10/02/20 21:32 seroquel Allergy Nausea Uncoded 10/02/20 21:32 Home Meds: Home Meds EPINEPHrine [Epipen] 0.3 mg IM ASDIRECTED PRN 04/28/19 [History] lamoTRIgine 100 mg PO DAILY 04/28/19 [History] Amitriptyline [Elavil] 25 mg PO BEDTIME 08/05/19 [History] Omeprazole 20 mg PO DAILY 11/24/19 [History] Naproxen Sodium [Aleve] 220 mg PO ASDIRECTED PRN 06/08/20 [History] Cyclobenzaprine [Flexeril] 10 mg PO TID PRN #15 tab 10/02/20 [Rx] traZODone 100 mg PO BEDTIME PRN 10/02/20 [History] risperiDONE [Risperdal] 2 mg PO DAILY 10/24/20 [History] Past Medical History - Past Health History Medical/Surgical History: Denies Medical/Surgical History HEENT History: Reports: Impaired Vision Other HEENT History: Wears glasses. Cardiovascular History: Reports: Other (See Below) Other Cardiovascular History: Palpitations. Respiratory History: Reports: Asthma, COPD Gastrointestinal History: Reports: Irritable Bowel Syndrome Musculoskeletal History: Reports: Back Pain, Chronic, Other (See Below) Other Musculoskeletal History: Shoulder dislocation. Scoliosis. Leg problems, uses a walker at times. Neurological History: Reports: Migraines, Seizure, Other (See Below) Other Neuro History: Pseudoseizure. Psychiatric History: Reports: Anxiety, Bipolar, Emotional Problems, Mood Swings, Panic Attack, Psych Hospitalization(s), PTSD, Suicide Attempt, Suicidal Ideation Other Psychiatric History: Insomnia. Intermittent explosive disorder. 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 Wears a brace on right knee. Social & Family History - Family History Family Medical History: No Pertinent Family History - Caffeine Use Caffeine Use: Reports: Energy Drinks, Soda - Living Situation & Occupation Living situation: Reports: with Significant Other Occupation: Disabled ED ROS GENERAL - Review of Systems Review Of Systems: See Below Constitutional: Reports: No Symptoms HEENT: Reports: No Symptoms Respiratory: Reports: No Symptoms Cardiovascular: Reports: Chest Pain, Palpitations Endocrine: Reports: No Symptoms GI/Abdominal: Reports: No Symptoms : Reports: No Symptoms Musculoskeletal: Reports: No Symptoms Skin: Reports: No Symptoms Neurological: Reports: No Symptoms ED EXAM, GENERAL - Physical Exam Exam: See Below Exam Limited By: No Limitations General Appearance: Alert, No Apparent Distress Eye Exam: Bilateral Eye: PERRL Ears: Normal External Exam, Normal Canal Nose: Normal Inspection, Normal Mucosa Throat/Mouth: Normal Inspection Head: Atraumatic, Normocephalic Neck: Normal Inspection, Supple, Non-Tender, Full Range of Motion Respiratory/Chest: No Respiratory Distress, Lungs Clear, Normal Breath Sounds Cardiovascular: Normal Peripheral Pulses, Regular Rate, Rhythm, No Edema, No Gallop GI/Abdominal: Normal Bowel Sounds, Soft, Non-Tender Back Exam: Normal Inspection, Full Range of Motion Extremities: Normal Inspection, Normal Range of Motion #1 Interpretation EKG Date: 10/24/20 Time: 20:18 Rhythm: NSR Rate (Beats/Min): 75 [place]: LAD-Left Kent Deviation QRS: Normal ST-T: Normal QT: Normal Comparison: NA - No Prior EKG EKG Interpretation Comments: NSR LAD Course - Vital Signs Last Recorded V/S: Last Vital Signs Temp 36.8 C 10/24/20 19:47 Pulse 101 H 10/24/20 19:47 Resp 16 10/24/20 19:47 BP 142/90 H 10/24/20 19:47 Pulse Ox 100 10/24/20 19:47 - Orders/Labs/Meds Orders: Active Orders 24 hr Category Date Time Status EKG 12 Lead [EK] Routine Ther 10/24/20 20:04 Ordered Labs: Laboratory Tests 10/24/20 10/24/20 10/24/20 Range/Units 20:10 20:10 20:10 WBC 8.1 (3.2-10.1) x10-3/uL RBC 4.47 (3.90-5.90) x10(6)uL Hgb 14.2 (12.9-17.7) g/dL Hct 42.4 (38.3-50.1) % MCV 94.8 (80.8-98.7) fL MCH 31.8 (27.0-33.3) pg MCHC 33.6 (28.7-35.3) g/dL RDW 13.2 (12.4-15.0) % Plt Count 174 (117-477) x10(3)uL MPV 8.0 (6.7-11.0) fL Neut % (Auto) 64.1 (40.3-71.8) % Lymph % (Auto) 28.9 (15.8-45.3) % [place] % (Auto) 5.3 L (5.5-15.2) % Eos % (Auto) 1.2 (0.1-6.8) % Baso % (Auto) 0.5 (0.3-3.8) % Neut # (Auto) 5.2 (1.7-6.9) x10-3/uL Lymph # (Auto) 2.4 (0.5-4.5) x10-3/uL [place] # (Auto) 0.4 (0.0-1.2) x10-3/uL Eos # (Auto) 0.1 (0.0-0.6) x10-3/uL Baso # (Auto) 0.0 (0.0-0.3) x10-3/uL Sodium 141 (135-145) mmol/L Potassium 3.5 (3.5-5.3) mmol/L Chloride 104 (100-110) mmol/L Carbon Dioxide 28 (21-32) mmol/L BUN 8 (7-18) mg/dL Creatinine 1.0 (0.70-1.30) mg/dL Est Cr Clr Drug Dosing TNP Estimated GFR (MDRD) > 60 (>60) BUN/Creatinine Ratio 8.0 L (9-20) Glucose 139 H (80-116) mg/dL Calcium 7.5 L (8.6-10.2) mg/dL Troponin I < 4.0 L (4.0-60.3) pg/mL Departure - Departure Time of Disposition: 20:45 Disposition: Home, Self-Care 01 Condition: Good Clinical Impression: Atypical chest pain, Palpitations Instructions: Nonspecific Chest Pain, Adult, [id number] Referrals: Jimbo Sood NP [Primary Care Provider] - Forms: ED Department Discharge Additional Instructions: please read discharge instructions on atypical chest pain take ibuprofen 800 mg with tylenol 1000 mg every 8 hours as needed for pain follow up as eeded Sepsis Event Note (ED) - Evaluation Sepsis Screening Result: No Definite Risk - My Orders Last 24 Hours: My Active Orders 10/24/20 20:04 EKG 12 Lead [EK] Routine - Assessment/Plan Last 24 Hours: My Active Orders 10/24/20 20:04 EKG 12 Lead [EK] Routine
== END 2020-10-24 20:50 | disposition home or self-care (01) ==
LOC: FB.ED 19:31
DX: R07.89 Other chest pain (principal); R00.2 Palpitations; J44.9 Chronic obstructive pulmonary disease, unspecified; R56.9 Unspecified convulsions; E66.9 Obesity, unspecified; Z91.048 Other nonmedicinal substance allergy status; Z91.030 Bee allergy status; Z88.8 Allergy status to other drugs, medicaments and biological substances; Z79.899 Other long term (current) drug therapy
CPT/HCPCS: 36415; 80048; 84484; 85025; 93005; 99285-25

== ENCOUNTER 2020-12-12 02:11 | Emergency (ER) | payer MEDICARE, MEDICAID ==
[2020-12-12 02:37] VITALS: BP 148/101; PULSE 113
[2020-12-12] MEDS: Ketorolac 30 MG/ML SDV IM ONE (02:41)
--- NOTE | 2020-12-12 02:42 | EDM.PDOC ---
ED HPI GENERAL MEDICAL PROBLEM - General Chief Complaint: Back Pain or Injury Stated Complaint: FELL Time Seen by Provider: 12/12/20 02:30 Source of Information: Reports: Patient History Limitations: Reports: No Limitations - History of Present Illness INITIAL COMMENTS - FREE TEXT/NARRATIVE: Was walkingout of bathroom when his knees gave out on him and he fell. states he overstrtched his back , has pain in the mid thoraci region and the left lateral para vertebral area , low back paiin state pain goes across his lower back no radiation to the legs states he did not take flexeril as itis not wroking for him though he has it prescribed Onset: Today Onset Date: 12/11/20 Duration: Getting Worse Location: Reports: Back Quality: Reports: Ache, Dull Severity: Moderate Improves with: Reports: None Worsens with: Reports: None Context: Reports: Activity Associated Symptoms: Reports: No Other Symptoms - Related Data Allergies Allergy/AdvReac Type Severity Reaction Status Date / Time adhesive Allergy Rash Verified 12/12/20 03:11 bee pollen Allergy Throat Verified 12/12/20 03:11 closes, Rash cariprazine [From Vraylar] Allergy Nausea, Verified 12/12/20 03:11 Rash varenicline [From Chantix] Allergy Depression Verified 12/12/20 03:11 seroquel Allergy Nausea Uncoded 12/12/20 03:11 Home Meds: Home Meds EPINEPHrine [Epipen] 0.3 mg IM ASDIRECTED PRN 04/28/19 [History] Amitriptyline [Elavil] 25 mg PO BEDTIME 08/05/19 [History] Omeprazole 20 mg PO DAILY 11/24/19 [History] Naproxen Sodium [Aleve] 220 mg PO Q12HR PRN 06/08/20 [History] Cyclobenzaprine [Flexeril] 10 mg PO TID PRN #15 tab 10/02/20 [Rx] traZODone 100 mg PO BEDTIME PRN 10/02/20 [History] risperiDONE [Risperdal] 2 mg PO DAILY 10/24/20 [History] Baclofen 10 mg PO TID #30 tablet 12/12/20 [Rx] Ketorolac [Toradol] 10 mg PO Q6H PRN #15 tab 12/12/20 [Rx] Lidocaine 4% [Aspercreme 4%] 1 each TOP Q12HR #30 patch 12/12/20 [Rx] lamoTRIgine [Lamotrigine] 150 mg PO DAILY 12/12/20 [History] Past Medical History - Past Health History Medical/Surgical History: Denies Medical/Surgical History HEENT History: Reports: Impaired Vision Other HEENT History: Wears glasses. Cardiovascular History: Reports: Other (See Below) Other Cardiovascular History: Palpitations. Respiratory History: Reports: Asthma, COPD Gastrointestinal History: Reports: Irritable Bowel Syndrome Musculoskeletal History: Reports: Back Pain, Chronic, Other (See Below) Other Musculoskeletal History: Shoulder dislocation. Scoliosis. Leg problems, uses a walker at times. Neurological History: Reports: Migraines, Seizure, Other (See Below) Other Neuro History: Pseudoseizure. Psychiatric History: Reports: Anxiety, Bipolar, Emotional Problems, Mood Swings, Panic Attack, Psych Hospitalization(s), PTSD, Suicide Attempt, Suicidal Ideation Other Psychiatric History: Insomnia. Intermittent explosive disorder. 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 Wears a brace on right knee. Social & Family History - Family History Family Medical History: No Pertinent Family History - Tobacco Use Years of Tobacco use: 20 Packs/Tins Daily: 2 - Caffeine Use Caffeine Use: Reports: Energy Drinks, Soda - Living Situation & Occupation Living situation: Reports: with Significant Other Occupation: Disabled ED ROS GENERAL - Review of Systems Review Of Systems: Comprehensive ROS is negative, except as noted in HPI. ED EXAM, UPPER BACK/NECK PAIN - Physical Exam Exam: See Below Exam Limited By: No Limitations General Appearance: Alert, WD/WN, No Apparent Distress Eye Exam: Bilateral Eye: EOMI Head Exam: Atraumatic, Normocephalic, Sinus Tenderness Neck Exam: Non-Tender, Normal Alignment Nexus Criteria: Evidence of Intoxication. No: Posterior, Midline Cervical Tenderness GI/Abdominal: Soft, Non-Tender Back Exam: Decreased Range of Motion, Muscle Spasm (in the thoracic region ), Paraspinal Tenderness. No: CVA Tenderness (R), CVA Tenderness (L), Vertebral Tenderness Extremities: Normal Inspection, Normal Range of Motion, Non-Tender Neurologic: No Motor/Sensory Deficits, Alert, Normal Mood/Affect, Oriented x 3 DTR: 2+: Patella (R), Patella (L) Psychiatric: Normal Affect, Normal Mood Skin Exam: Normal Color, Warm/Dry Lymphatic: No Adenopathy Course - Vital Signs Last Recorded V/S: Last Vital Signs Temp 37.4 C 12/12/20 02:20 Pulse 113 H 12/12/20 02:20 Resp 18 12/12/20 02:20 BP 148/101 H 12/12/20 02:20 Pulse Ox 98 12/12/20 02:20 - Orders/Labs/Meds Meds: Medications Discontinued Medications Generic Name Dose Route Start Last Admin Trade Name Freq PRN Reason Stop Dose Admin Baclofen 20 mg 12/12/20 02:37 12/12/20 02:48 Baclofen 10 Mg Tab PO 12/12/20 02:38 20 mg ONETIME ONE Administration Ketorolac Tromethamine 60 mg 12/12/20 02:37 12/12/20 02:41 Ketorolac 30 Mg/Ml Sdv IM 12/12/20 02:38 60 mg ONETIME ONE Administration Lidocaine 1 each 12/12/20 02:42 12/12/20 02:48 Lidocaine 4% 1 Each Patch TOP 12/12/20 02:43 1 each NOW STA Administration - Re-Assessments/Exams Free Text/Narrative Re-Assessment/Exam: 12/12/20 03:28 pt given toradol and lidoderm patch with baclofen and felt better Departure - Departure Time of Disposition: 03:20 Disposition: Home, Self-Care 01 Condition: Fair Clinical Impression: Spasm of thoracic back muscle, Strain of thoracic paraspinal muscles excluding T1 and T2 levels, Acute exacerbation of chronic low back pain - Discharge Information *PRESCRIPTION DRUG MONITORING PROGRAM REVIEWED*: Not Applicable *COPY OF PRESCRIPTION DRUG MONITORING REPORT IN PATIENT CLARITA: Not Applicable Prescriptions: Lidocaine 4% [Aspercreme 4%] 1 each TOP Q12HR #30 patch Baclofen 10 mg PO TID #30 tablet Ketorolac [Toradol] 10 mg PO Q6H PRN #15 tab PRN Reason: Pain (Severe 7-10) Instructions: Muscle Cramps and Spasms, [id number], Thoracic Strain Rehab- [facility] Forms: ED Department Discharge Additional Instructions: 1) Warm compress to the affected area 3 times a say as needed 2) Follow up with your PCP if symptoms do not improve as expected Sepsis Event Note (ED) - Evaluation Sepsis Screening Result: No Definite Risk - Focused Exam Vital Signs: Vital Signs Temp Pulse Resp BP Pulse Ox 12/12/20 02:20 37.4 C 113 H 18 148/101 H 98
[2020-12-12] MEDS: Baclofen 10 MG Tab PO ONE (02:48)
[2020-12-12] MEDS: Lidocaine 4% 1 each Patch TOP STA (02:48)
== END 2020-12-12 03:25 | disposition home or self-care (01) ==
LOC: FB.ED 02:11
DX: S29.012A Strain of muscle and tendon of back wall of thorax, initial encounter (principal); M62.830 Muscle spasm of back; J44.9 Chronic obstructive pulmonary disease, unspecified; E66.9 Obesity, unspecified; Z68.36 Body mass index [BMI] 36.0-36.9, adult; Z91.030 Bee allergy status; Z91.048 Other nonmedicinal substance allergy status; Z88.8 Allergy status to other drugs, medicaments and biological substances; W18.39XA Other fall on same level, initial encounter; Y92.002 Bathroom of unspecified non-institutional (private) residence as the place of occurrence of the external cause
CPT/HCPCS: 96372; 99283; A9270-GY; J1885

== ENCOUNTER 2020-12-20 22:43 | Emergency (ER) | payer MEDICARE, MEDICAID ==
[2020-12-20] MEDS ORDERED: traMADol 50 MG Tab PO ONE (22:44)
[2020-12-20 22:59] VITALS: BP 159/107; PULSE 100
[2020-12-20] MEDS ORDERED: Ketorolac 30 MG/ML SDV IM STA (23:15)
[2020-12-20] MEDS ORDERED: Cyclobenzaprine 10 MG Tab PO STA (23:15)
--- NOTE | 2020-12-20 23:20 | EDM.PDOC ---
ED HPI GENERAL MEDICAL PROBLEM - General Chief Complaint: Lower Extremity Injury/Pain Stated Complaint: PATIENT FEELS HE TORE A MUSCLE Time Seen by Provider: 12/20/20 22:50 Source of Information: Reports: Patient History Limitations: Reports: No Limitations - History of Present Illness INITIAL COMMENTS - FREE TEXT/NARRATIVE: Patient presented to the ED because of left thigh and leg pain. He picked up something and then he heard a pop. He was able to drive himself pain although he said his pain is 10/10. R posterior leg from hip to ankle Pain Score (Numeric/FACES): 9 - Related Data Allergies Allergy/AdvReac Type Severity Reaction Status Date / Time adhesive Allergy Rash Verified 12/20/20 22:52 bee pollen Allergy Throat Verified 12/20/20 22:52 closes, Rash cariprazine [From Vraylar] Allergy Nausea, Verified 12/20/20 22:52 Rash varenicline [From Chantix] Allergy Depression Verified 12/20/20 22:52 seroquel Allergy Nausea Uncoded 12/20/20 22:52 Home Meds: Home Meds EPINEPHrine [Epipen] 0.3 mg IM ASDIRECTED PRN 04/28/19 [History] Amitriptyline [Elavil] 25 mg PO BEDTIME 08/05/19 [History] Omeprazole 20 mg PO DAILY 11/24/19 [History] Naproxen Sodium [Aleve] 220 mg PO Q12HR PRN 06/08/20 [History] Cyclobenzaprine [Flexeril] 10 mg PO TID PRN #15 tab 10/02/20 [Rx] traZODone 100 mg PO BEDTIME PRN 10/02/20 [History] risperiDONE [Risperdal] 2 mg PO BEDTIME 10/24/20 [History] Baclofen 10 mg PO TID #30 tablet 12/12/20 [Rx] Lidocaine 4% [Aspercreme 4%] 1 each TOP Q12HR #30 patch 12/12/20 [Rx] lamoTRIgine [Lamotrigine] 200 mg PO DAILY 12/12/20 [History] Diclofenac Sodium 75 mg PO BID 12/20/20 [History] Past Medical History - Past Health History Medical/Surgical History: Denies Medical/Surgical History HEENT History: Reports: Impaired Vision Other HEENT History: Wears glasses. Cardiovascular History: Reports: Other (See Below) Other Cardiovascular History: Palpitations. Respiratory History: Reports: Asthma, COPD Gastrointestinal History: Reports: Irritable Bowel Syndrome Musculoskeletal History: Reports: Back Pain, Chronic, Other (See Below) Other Musculoskeletal History: Shoulder dislocation. Scoliosis. Leg problems, uses a walker at times. Neurological History: Reports: Migraines, Seizure, Other (See Below) Other Neuro History: Pseudoseizure. Psychiatric History: Reports: Anxiety, Bipolar, Emotional Problems, Mood Swings, Panic Attack, Psych Hospitalization(s), PTSD, Suicide Attempt, Suicidal Ideation Other Psychiatric History: Insomnia. Intermittent explosive disorder. 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 Wears a brace on right knee. Social & Family History - Family History Family Medical History: No Pertinent Family History - Tobacco Use Tobacco Use Status *Q: Current Every Day Tobacco User Years of Tobacco use: 20 Packs/Tins Daily: 2 - Caffeine Use Caffeine Use: Reports: Energy Drinks, Soda - Recreational Drug Use Recreational Drug Use: No - Living Situation & Occupation Living situation: Reports: with Significant Other Occupation: Disabled Review of Systems - Review of Systems Review Of Systems: See Below Constitutional: Reports: No Symptoms Eyes: Reports: No Symptoms Ears: Reports: No Symptoms Nose: Reports: No Symptoms Mouth/Throat: Reports: No Symptoms Respiratory: Reports: No Symptoms Cardiovascular: Reports: No Symptoms Genitourinary: Reports: No Symptoms Musculoskeletal: Reports: Muscle Pain, Muscle Stiffness Skin: Reports: No Symptoms Neurological: Reports: No Symptoms Psychiatric: Reports: No Symptoms ED EXAM, GENERAL - Physical Exam Exam: See Below Exam Limited By: No Limitations General Appearance: Alert, No Apparent Distress Eye Exam: Bilateral Eye: PERRL Ears: Normal External Exam, Normal Canal Nose: Normal Inspection, Normal Mucosa, No Blood Throat/Mouth: Normal Inspection, Normal Lips Head: Atraumatic, Normocephalic Neck: Normal Inspection, Supple, Non-Tender, Full Range of Motion Respiratory/Chest: No Respiratory Distress, Lungs Clear, Normal Breath Sounds, No Accessory Muscle Use, Chest Non-Tender Cardiovascular: Normal Peripheral Pulses, Regular Rate, Rhythm, No Edema, No Gallop, No JVD, No Murmur GI/Abdominal: Normal Bowel Sounds, Soft, Non-Tender, No Organomegaly, No Distention, No Abnormal Bruit, No Mass Back Exam: Normal Inspection, Full Range of Motion Extremities: Normal Inspection, Normal Range of Motion, No Pedal Edema, Normal Capillary Refill, Other (tenderness left thigh, left calf) Neurological: Alert, Oriented, CN II-XII Intact, Normal Cognition, Normal Gait, Normal Reflexes, No Motor/Sensory Deficits Psychiatric: Normal Affect Course - Vital Signs Text/Narrative:: Toradol 60 mg IM x1 Flexeril 10 mg PO x1 Last Recorded V/S: Last Vital Signs Temp 37.5 C 12/20/20 22:45 Pulse 100 12/20/20 22:45 Resp 18 12/20/20 22:45 BP 159/107 H 12/20/20 22:45 Pulse Ox 100 12/20/20 22:45 - Orders/Labs/Meds Meds: Medications Discontinued Medications Generic Name Dose Route Start Last Admin Trade Name Yajaira PRN Reason Stop Dose Admin Cyclobenzaprine HCl 10 mg 12/20/20 23:15 12/20/20 23:23 Cyclobenzaprine 10 Mg Tab PO 12/20/20 23:16 10 mg NOW STA Administration Ketorolac Tromethamine 60 mg 12/20/20 23:15 12/20/20 23:22 Ketorolac 30 Mg/Ml Sdv IM 12/20/20 23:16 60 mg NOW STA Administration Departure - Departure Time of Disposition: 23:30 Disposition: Home, Self-Care 01 Condition: Good Clinical Impression: Muscle strain - Discharge Information Instructions: Muscle Strain, [id number] Referrals: PCP,None [Primary Care Provider] - Forms: ED Department Discharge Additional Instructions: Please read discharge instructions on muscle strain Apply ice Take your baclofen as prescribed Ibuprofen 800 mg with tylenol 1000 mg every 8 hours as needed for pain Tramadol 100 mg every 8 hours as needed for severe pain Follow up as needed Sepsis Event Note (ED) - Evaluation Sepsis Screening Result: No Definite Risk - Focused Exam Vital Signs: Vital Signs Temp Pulse Resp BP Pulse Ox 12/20/20 22:45 37.5 C 100 18 159/107 H 100
== END 2020-12-20 23:31 | disposition home or self-care (01) ==
LOC: FB.ED 22:43
DX: S76.912A Strain of unspecified muscles, fascia and tendons at thigh level, left thigh, initial encounter (principal); J44.9 Chronic obstructive pulmonary disease, unspecified; E66.9 Obesity, unspecified; Z68.36 Body mass index [BMI] 36.0-36.9, adult; Z72.0 Tobacco use; Z91.048 Other nonmedicinal substance allergy status; Z91.030 Bee allergy status; Z88.8 Allergy status to other drugs, medicaments and biological substances; Z79.899 Other long term (current) drug therapy; X58.XXXA Exposure to other specified factors, initial encounter
CPT/HCPCS: 96372; 99283; A9270; J1885

== ENCOUNTER 2021-01-16 05:01 | Emergency (ER) | payer MEDICARE, MEDICAID ==
[2021-01-16 05:20] VITALS: BP 151/101; PULSE 100
[2021-01-16] MEDS ORDERED: Acetaminophen 500 MG Tab PO STA (05:47)
[2021-01-16] MEDS ORDERED: Ketorolac 30 MG/ML SDV IM STA (05:47)
[2021-01-16] MEDS ORDERED: Cyclobenzaprine 10 MG Tab PO STA (05:47)
--- NOTE | 2021-01-16 05:56 | EDM.PDOC ---
ED HPI GENERAL MEDICAL PROBLEM - General Chief Complaint: Back Pain or Injury Stated Complaint: unable to stand up straight back pain Time Seen by Provider: 01/16/21 05:15 Source of Information: Reports: Patient, Family History Limitations: Reports: No Limitations - History of Present Illness INITIAL COMMENTS - FREE TEXT/NARRATIVE: Patient presented to the ED because of low back pain which started yesterday when patient lifetd some boxes. He too his aleve but didn't help. The pain is sharp,8/10, worse with movements. Back Pain Score (Numeric/FACES): 10 - Related Data Allergies Allergy/AdvReac Type Severity Reaction Status Date / Time adhesive Allergy Rash Verified 12/20/20 22:52 bee pollen Allergy Throat Verified 12/20/20 22:52 closes, Rash cariprazine [From Vraylar] Allergy Nausea, Verified 12/20/20 22:52 Rash varenicline [From Chantix] Allergy Depression Verified 12/20/20 22:52 seroquel Allergy Nausea Uncoded 12/20/20 22:52 Home Meds: Home Meds EPINEPHrine [Epipen] 0.3 mg IM ASDIRECTED PRN 04/28/19 [History] Omeprazole 20 mg PO DAILY 11/24/19 [History] Naproxen Sodium [Aleve] 220 mg PO Q12HR PRN 06/08/20 [History] traZODone 100 mg PO BEDTIME PRN 10/02/20 [History] risperiDONE [Risperdal] 2 mg PO BID 10/24/20 [History] Baclofen 10 mg PO TID #30 tablet 12/12/20 [Rx] Lidocaine 4% [Aspercreme 4%] 1 each TOP Q12HR #30 patch 12/12/20 [Rx] lamoTRIgine [Lamotrigine] 200 mg PO DAILY 12/12/20 [History] Diclofenac Sodium 75 mg PO BID 12/20/20 [History] buPROPion [buPROPion XL] 150 mg PO BID 01/16/21 [History] Past Medical History - Past Health History Medical/Surgical History: Denies Medical/Surgical History HEENT History: Reports: Impaired Vision Other HEENT History: Wears glasses. Cardiovascular History: Reports: Other (See Below) Other Cardiovascular History: Palpitations. Respiratory History: Reports: Asthma, COPD Gastrointestinal History: Reports: Irritable Bowel Syndrome Musculoskeletal History: Reports: Back Pain, Chronic, Other (See Below) Other Musculoskeletal History: Shoulder dislocation. Scoliosis. Leg problems, uses a walker at times. Neurological History: Reports: Migraines, Seizure, Other (See Below) Other Neuro History: Pseudoseizure. Psychiatric History: Reports: Anxiety, Bipolar, Emotional Problems, Mood Swings, Panic Attack, Psych Hospitalization(s), PTSD, Suicide Attempt, Suicidal Ideation Other Psychiatric History: Insomnia. Intermittent explosive disorder. 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 Wears a brace on right knee. Social & Family History - Family History Family Medical History: No Pertinent Family History - Tobacco Use Tobacco Use Status *Q: Current Every Day Tobacco User Years of Tobacco use: 20 Packs/Tins Daily: 0.3 - Caffeine Use Caffeine Use: Reports: Coffee, Soda - Recreational Drug Use Recreational Drug Use: No - Living Situation & Occupation Living situation: Reports: with Significant Other Occupation: Disabled ED ROS GENERAL - Review of Systems Review Of Systems: See Below Constitutional: Reports: No Symptoms HEENT: Reports: No Symptoms Respiratory: Reports: No Symptoms Cardiovascular: Reports: No Symptoms Endocrine: Reports: No Symptoms GI/Abdominal: Reports: No Symptoms : Reports: No Symptoms Musculoskeletal: Reports: Back Pain Skin: Reports: No Symptoms Neurological: Reports: No Symptoms Psychiatric: Reports: No Symptoms ED EXAM,LOWER BACK PAIN/INJURY - Physical Exam Exam: See Below Exam Limited By: No Limitations General Appearance: Alert, No Apparent Distress Ears: Normal External Exam, Normal Canal, Hearing Grossly Normal Nose: Normal Inspection, Normal Mucosa, No Blood Throat/Mouth: Normal Inspection, Normal Lips, Normal Teeth, Normal Gums, Normal Oropharynx Head: Atraumatic, Normocephalic Neck: Normal Inspection, Supple, Non-Tender, Full Range of Motion Respiratory/Chest: No Respiratory Distress, Lungs Clear, Normal Breath Sounds, No Accessory Muscle Use, Chest Non-Tender Cardiovascular: Normal Peripheral Pulses, Regular Rate, Rhythm, No Edema, No Gallop, No JVD, No Murmur, No Rub GI/Abdominal: Normal Bowel Sounds, Soft, Non-Tender, No Organomegaly, No Distention, No Abnormal Bruit Back Exam: Normal Inspection, Muscle Spasm, Vertebral Tenderness Extremities: Normal Inspection, Normal Range of Motion, Non-Tender, No Pedal Edema, Normal Capillary Refill Neurological: Alert, Normal Mood/Affect, Normal Dorsiflexion, CN II-XII Intact, Normal Plantar Flexion, Normal Gait Psychiatric: Normal Affect, Normal Mood Skin Exam: Warm, Dry, Intact Course - Vital Signs Text/Narrative:: Toradol 60 mg IM x1 Flexeril 10 mg PO x1 Tylenol 1000 mg PO x1 Last Recorded V/S: Last Vital Signs Temp 37.0 C 01/16/21 05:10 Pulse 100 01/16/21 05:10 Resp 18 01/16/21 05:10 BP 151/101 H 01/16/21 05:10 Pulse Ox 97 01/16/21 05:10 - Orders/Labs/Meds Meds: Medications Discontinued Medications Generic Name Dose Route Start Last Admin Trade Name Yajaira PRN Reason Stop Dose Admin Acetaminophen 1,000 mg 01/16/21 05:47 01/16/21 05:56 Acetaminophen 500 Mg Tab PO 01/16/21 05:48 1,000 mg NOW STA Administration Cyclobenzaprine HCl 10 mg 01/16/21 05:47 01/16/21 05:56 Cyclobenzaprine 10 Mg Tab PO 01/16/21 05:48 10 mg NOW STA Administration Ketorolac Tromethamine 60 mg 01/16/21 05:47 01/16/21 05:56 Ketorolac 30 Mg/Ml Sdv IM 01/16/21 05:48 60 mg NOW STA Administration Departure - Departure Time of Disposition: 06:00 Disposition: Home, Self-Care 01 Condition: Good Clinical Impression: Chronic low back pain, Lumbosacral strain - Discharge Information Instructions: Chronic Back Pain, [id number] Referrals: PCP,None [Primary Care Provider] - Forms: ED Department Discharge Additional Instructions: Please read discharge instruction on chronic back pain Apply ice or heat whichever makes the pain go away Take all the following medications at the same time for better pain relief: Aleve(2 tablets),tylenol 500 mg ( 2 tablets), baclofen every 8 hours as needed for pain and spasms Ask your doctor to refer you to a pain specialist if your back pain keeps bothering you Sepsis Event Note (ED) - Evaluation Sepsis Screening Result: No Definite Risk
== END 2021-01-16 06:19 | disposition home or self-care (01) ==
LOC: FB.ED 05:01
DX: S39.012A Strain of muscle, fascia and tendon of lower back, initial encounter (principal); E66.9 Obesity, unspecified; J44.9 Chronic obstructive pulmonary disease, unspecified; Z91.030 Bee allergy status; Z88.8 Allergy status to other drugs, medicaments and biological substances; Z72.0 Tobacco use; Z68.30 Body mass index [BMI] 30.0-30.9, adult; X50.0XXA Overexertion from strenuous movement or load, initial encounter; Y93.F2 Activity, caregiving, lifting
CPT/HCPCS: 96372; 99283; A9270; J1885

== ENCOUNTER 2021-02-12 17:18 | Emergency (ER) | payer MEDICARE, MEDICAID ==
[2021-02-12] MEDS ORDERED: predniSONE 20 MG Tab PO ONE (17:19)
--- NOTE | 2021-02-12 17:40 | EDM.PDOC ---
ED HPI GENERAL MEDICAL PROBLEM - General Stated Complaint: ALLERGIC REACTION Time Seen by Provider: 02/12/21 17:32 Source of Information: Reports: Patient History Limitations: Reports: No Limitations - History of Present Illness INITIAL COMMENTS - FREE TEXT/NARRATIVE: 35-year-old male who states that approximate 4:30 PM today, his landlord was spraying the door handles with what he thought was Lysol and he reports that shortly after he inhaled the fumes of the Lysol, he began to feel somewhat nauseated and lightheaded and he also felt that he had a lump in his throat and a tightness across his chest like a heaviness trouble breathing. He also felt his heart was beating fast. 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 He was rating the tightness as moderate to severe and at its worst would have rated it as a 9/10. He is feeling better now.. He had no antecedent symptoms. He was feeling well prior to this. He has had no vomiting. He is able to swallow okay. He did not take any medications at home prior to coming in. He drove himself to the emergen cy department. There are no other associated signs or symptoms. There are no other modifying factors. Onset: Today (30 p.m.) Duration: Constant Location: Reports: Neck, Chest Quality: Reports: Pressure Severity: Moderate (to severe) Improves with: Reports: None Worsens with: Reports: None Context: Reports: Other (As above.) Associated Symptoms: Reports: No Other Symptoms (Except as above.) Treatments [employer]: Reports: Other (see below) (Nothing.) Chest Pain Score (Numeric/FACES): 9 - Related Data Allergies Allergy/AdvReac Type Severity Reaction Status Date / Time adhesive Allergy Rash Verified 12/20/20 22:52 bee pollen Allergy Throat Verified 12/20/20 22:52 closes, Rash cariprazine [From Vraylar] Allergy Nausea, Verified 12/20/20 22:52 Rash varenicline [From Chantix] Allergy Depression Verified 12/20/20 22:52 seroquel Allergy Nausea Uncoded 12/20/20 22:52 Home Meds: Home Meds EPINEPHrine [Epipen] 0.3 mg IM ASDIRECTED PRN 11/19/19 [History] Omeprazole 20 mg PO DAILY 11/24/19 [History] Naproxen Sodium [Aleve] 220 mg PO Q12HR PRN 06/08/20 [History] traZODone 100 mg PO BEDTIME PRN 10/02/20 [History] risperiDONE [Risperdal] 2 mg PO BID 10/24/20 [History] Baclofen 10 mg PO TID #30 tablet 12/12/20 [Rx] Lidocaine 4% [Aspercreme 4%] 1 each TOP Q12HR #30 patch 12/12/20 [Rx] lamoTRIgine [Lamotrigine] 200 mg PO DAILY 12/12/20 [History] Diclofenac Sodium 75 mg PO BID 12/20/20 [History] buPROPion [buPROPion XL] 150 mg PO BID 01/16/21 [History] Past Medical History HEENT History: Reports: Impaired Vision Other HEENT History: Wears glasses. Cardiovascular History: Reports: Other (See Below) Other Cardiovascular History: Palpitations. Respiratory History: Reports: Asthma, COPD Gastrointestinal History: Reports: Irritable Bowel Syndrome Musculoskeletal History: Reports: Back Pain, Chronic, Other (See Below) Other Musculoskeletal History: Shoulder dislocation. Scoliosis. Leg problems, uses a walker at times. Neurological History: Reports: Migraines, Seizure, Other (See Below) Other Neuro History: Pseudoseizure. Psychiatric History: Reports: Anxiety, Bipolar, Emotional Problems, Mood Swings, Panic Attack, Psych Hospitalization(s), PTSD, Suicide Attempt, Suicidal Ideation Other Psychiatric History: Insomnia. Intermittent explosive disorder. 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 Wears a brace on right knee. Social & Family History - Tobacco Use Tobacco Use Status *Q: Current Every Day Tobacco User - Caffeine Use Caffeine Use: Reports: Coffee, Soda - Alcohol Use Alcohol Use History: No - Recreational Drug Use Recreational Drug Use: No - Living Situation & Occupation Occupation: Disabled ED ROS GENERAL - Review of Systems Review Of Systems: See Below Constitutional: Denies: Fever, Chills, Weakness HEENT: Reports: Throat Swelling. Denies: Throat Pain Respiratory: Denies: Shortness of Breath, Cough Cardiovascular: Reports: Chest Pain, Lightheadedness, Palpitations Endocrine: Denies: Polydypsia, Polyuria GI/Abdominal: Reports: Nausea. Denies: Vomiting : Denies: Dysuria, Frequency, Hematuria Musculoskeletal: Denies: Neck Pain, Arm Pain Skin: Denies: Diaphoresis, Rash Neurological: Reports: Dizziness. Denies: Confusion, Headache Psychiatric: Reports: Anxiety. Denies: Confusion Hematologic/Lymphatic: Denies: Easy Bleeding, Easy Bruising ED EXAM, GENERAL - Physical Exam Exam: See Below Exam Limited By: No Limitations General Appearance: Alert, WD/WN, Anxious, Mild Distress, Other (No respiratory distress) Eye Exam: Bilateral Eye: EOMI, Normal Inspection, PERRL Ears: Normal External Exam, Hearing Grossly Normal Ear Exam: Bilateral Ear: Auricle Normal Nose: Normal Inspection, Normal Mucosa, No Blood Throat/Mouth: Normal Inspection, Normal Oropharynx, Normal Voice, No Airway Compromise Head: Atraumatic, Normocephalic Neck: Normal Inspection, Supple, Non-Tender, Full Range of Motion Respiratory/Chest: No Respiratory Distress, Lungs Clear, Normal Breath Sounds, No Accessory Muscle Use, Chest Non-Tender Cardiovascular: Normal Peripheral Pulses, Regular Rate, Rhythm, No Murmur Peripheral Pulses: 2+: Radial (L), Radial (R), Dorsalis Pedis (L), Dorsalis Pedis (R) GI/Abdominal: Normal Bowel Sounds, Soft, Non-Tender, No Mass Back Exam: Normal Inspection, Full Range of Motion Extremities: Normal Inspection, Normal Range of Motion, Non-Tender, No Pedal Edema, Normal Capillary Refill Neurological: Alert, Oriented, CN II-XII Intact, Normal Cognition, No Motor/Sensory Deficits Psychiatric: Flat Affect Skin Exam: Warm, Dry, Intact, Normal Color, No Rash #1 Interpretation EKG Date: 02/12/21 Time: 17:20 Rhythm: NSR Rate (Beats/Min): 90 [place]: LAD-Left Steuben Deviation P-Wave: Present QRS: Normal ST-T: Normal QT: Normal Comparison: No Change (No significant change from an EKG performed on 10/14/2020) Course - Vital Signs Last Recorded V/S: Last Vital Signs Temp 36.6 C 02/12/21 17:18 Pulse 101 H 02/12/21 17:18 Resp 20 09/05/21 17:18 BP 157/97 H 02/12/21 17:18 Pulse Ox 98 02/12/21 17:18 - Orders/Labs/Meds Orders: Active Orders 24 hr Category Date Time Status Sodium Chloride 0.9% [Saline Flush] Med 02/12/21 17:53 Active 10 ml FLUSH ASDIRECTED PRN Peripheral IV Insertion Adult [OM.PC] Routine Oth 02/12/21 17:53 Ordered EKG 12 Lead [EK] Routine Ther 02/12/21 17:53 Ordered Medication Orders Sodium Chloride (Sodium Chloride 0.9% 10 Ml Syringe) 10 ml FLUSH ASDIRECTED PRN PRN Reason: Keep Vein Open Meds: Medications Generic Name Dose Route Start Last Admin Trade Name Freq PRN Reason Stop Dose Admin Sodium Chloride 10 ml 02/12/21 17:53 Sodium Chloride 0.9% 10 Ml Syringe FLUSH ASDIRECTED PRN Keep Vein Open Discontinued Medications Generic Name Dose Route Start Last Admin Trade Name Freq PRN Reason Stop Dose Admin Diphenhydramine HCl 50 mg 02/12/21 17:51 02/12/21 18:11 Diphenhydramine 50 Mg/Ml Sdv IVPUSH 02/12/21 17:52 50 mg ONETIME ONE Administration Sodium Chloride 500 mls @ 999 mls/hr 02/12/21 17:53 02/12/21 18:00 Normal Saline IV 02/12/21 18:23 999 mls/hr .BOLUS ONE Administration Famotidine 20 mg/ Premix 50 mls @ 200 mls/hr 02/12/21 17:51 02/12/21 18:10 IV 02/12/21 17:52 200 mls/hr ONETIME ONE Administration Lorazepam 0.5 mg 02/12/21 17:51 02/12/21 18:12 Lorazepam 2 Mg/Ml Sdv IVPUSH 02/12/21 17:52 0.5 mg ONETIME ONE Administration Methylprednisolone Sodium Succinate 125 mg 02/12/21 17:51 02/12/21 18:13 Methylprednisolone Sodium Succinate 125 Mg/2 Ml Sdv IVPUSH 02/12/21 17:52 125 mg ONETIME ONE Administration - Re-Assessments/Exams Free Text/Narrative Re-Assessment/Exam: 02/12/21 18:45: Patient feels improved. He states he still has a mild lump in his throat but he is having no difficulty breathing and he has no chest pain. His pulse rate is in the 60s and his blood pressure is in the 120 to 130 range. His O2 saturations are 95% on room air. No distress. He has received Benadryl 50 mg IV, Pepcid 20 mg IV and Solu-Medrol 125 mg IV. He has been observed for 1- 1/2 hours in the emergency department with no signs of severe anaphylaxis/a llergic reaction. I we will discharge the patient to home. He should take Benadryl 50 mg 4 times a day for the next 2 days and then as needed for allergic reaction. He was given a take-home pack of prednisone so that he can take 40 mg daily for the next 4 days with the first dose tomorrow morning. Precautions and reasons for return to the emergency department were discussed with the patient while he was in the emergency department were detailed in the patient's discharge instructions. The patient did drive himself here and he will have to have somebody take him home because of the medications that he has been given. Departure - Departure Time of Disposition: 19:07 Disposition: Home, Self-Care 01 Condition: Good Clinical Impression: Allergic reaction Qualifiers: Encounter type: initial encounter Qualified Code(s): T78.40XA - Allergy, unspecified, initial encounter - Discharge Information Instructions: Allergies, Adult, [id number], Anaphylactic Reaction, Adult, [id number] Referrals: PCP,None [Primary Care Provider] - Additional Instructions: You appear to have had an allergic reaction to the cleaning spray. You had the beginning of an anaphylactic reaction that is similar to the reaction that you have with bee stings. It has improved with the medications were given and you should take Benadryl 50 mg by mouth 4 times a day for the next 2 days and then as needed for allergic reaction. You should also take the prednisone 40 mg every morning beginning tomorrow morning for the next 4 days. Increase your fluid intake. Rest. If you begin to have a severe reaction like with your bee stings, you should use your EpiPen. Back to the emergency department for trouble breathing, severe allergic reaction requiring you to give yourself an EpiPen, severe weakness or any other concerning signs or symptoms. Sepsis Event Note (ED) - Focused Exam Vital Signs: Vital Signs Temp Pulse Resp BP Pulse Ox 02/12/21 17:18 36.6 C 101 H 20 157/97 H 98 - My Orders Last 24 Hours: My Active Orders 02/12/21 17:53 Sodium Chloride 0.9% [Saline Flush] 10 ml FLUSH ASDIRECTED PRN Peripheral IV Insertion Adult [OM.PC] Routine EKG 12 Lead [EK] Routine - Assessment/Plan Last 24 Hours: My Active Orders 02/12/21 17:53 Sodium Chloride 0.9% [Saline Flush] 10 ml FLUSH ASDIRECTED PRN Peripheral IV Insertion Adult [OM.PC] Routine EKG 12 Lead [EK] Routine
[2021-02-12] MEDS ORDERED: Famotidine/Normal Saline 20 MG in Premix Bag 1 BAG IV ONE (17:51)
[2021-02-12] MEDS ORDERED: LORazepam 2 MG/ML SDV IVPUSH ONE (17:51)
[2021-02-12] MEDS ORDERED: methylPREDNISolone Sodium Succinate 125 MG/2 ML SDV IVPUSH ONE (17:51)
[2021-02-12] MEDS ORDERED: diphenhydrAMINE 50 MG/ML SDV IVPUSH ONE (17:51)
[2021-02-12] MEDS ORDERED: Sodium Chloride 0.9% 10 ML Syringe FLUSH PRN (17:53)
[2021-02-12] MEDS ORDERED: Sodium Chloride 0.9% 500 ML IV ONE (17:53)
[2021-02-12 18:15] VITALS: PULSE 101
[2021-02-12 19:17] VITALS: BP 125/83
== END 2021-02-12 19:30 | disposition home or self-care (01) ==
LOC: FB.ED 17:18
DX: R07.89 Other chest pain (principal); J39.2 Other diseases of pharynx; T50.995A Adverse effect of other drugs, medicaments and biological substances, initial encounter; J44.9 Chronic obstructive pulmonary disease, unspecified; E66.9 Obesity, unspecified; Z68.36 Body mass index [BMI] 36.0-36.9, adult; Z72.0 Tobacco use; Z91.048 Other nonmedicinal substance allergy status; Z91.030 Bee allergy status; Z88.8 Allergy status to other drugs, medicaments and biological substances; Z79.899 Other long term (current) drug therapy
CPT/HCPCS: 93005; 96374; 96375; 99284; J1200; J2060; J2930; J7040; J7512

== ENCOUNTER 2021-04-12 07:47 | Emergency (ER) | payer MEDICARE, MEDICAID ==
[2021-04-12 08:15] VITALS: BP 132/77; PULSE 77
--- NOTE | 2021-04-12 08:49 | EDM.PDOC ---
ED HPI GENERAL MEDICAL PROBLEM - General Chief Complaint: Upper Extremity Injury/Pain Stated Complaint: LT ARM INJURY Time Seen by Provider: 04/12/21 07:55 Source of Information: Reports: Patient History Limitations: Reports: No Limitations - History of Present Illness INITIAL COMMENTS - FREE TEXT/NARRATIVE: Patient presented to the ED because of Left shoulder and left knee pain after he fell to the side of his truck. Left Shoulder Pain Score (Numeric/FACES): 8 - Related Data Allergies Allergy/AdvReac Type Severity Reaction Status Date / Time adhesive Allergy Rash Verified 12/20/20 22:52 bee pollen Allergy Throat Verified 12/20/20 22:52 closes, Rash cariprazine [From Vraylar] Allergy Nausea, Verified 12/20/20 22:52 Rash varenicline [From Chantix] Allergy Depression Verified 12/20/20 22:52 seroquel Allergy Nausea Uncoded 12/20/20 22:52 Home Meds: Home Meds EPINEPHrine [Epipen] 0.3 mg IM ASDIRECTED PRN 04/28/19 [History] Omeprazole 20 mg PO DAILY 11/24/19 [History] Naproxen Sodium [Aleve] 220 mg PO Q12HR PRN 06/08/20 [History] traZODone 100 mg PO BEDTIME PRN 10/02/20 [History] risperiDONE [Risperdal] 2 mg PO BID 10/24/20 [History] Baclofen 10 mg PO TID #30 tablet 12/12/20 [Rx] Lidocaine 4% [Aspercreme 4%] 1 each TOP Q12HR #30 patch 12/12/20 [Rx] lamoTRIgine [Lamotrigine] 200 mg PO DAILY 12/12/20 [History] Diclofenac Sodium 75 mg PO BID 12/20/20 [History] buPROPion [buPROPion XL] 150 mg PO BID 01/16/21 [History] Past Medical History - Past Health History Medical/Surgical History: Denies Medical/Surgical History HEENT History: Reports: Impaired Vision Other HEENT History: Wears glasses. Cardiovascular History: Reports: Other (See Below) Other Cardiovascular History: Palpitations. Respiratory History: Reports: Asthma, COPD Gastrointestinal History: Reports: Irritable Bowel Syndrome Musculoskeletal History: Reports: Back Pain, Chronic, Other (See Below) Other Musculoskeletal History: Shoulder dislocation. Scoliosis. Leg problems, uses a walker at times. Neurological History: Reports: Migraines, Seizure, Other (See Below) Other Neuro History: Pseudoseizure. Psychiatric History: Reports: Anxiety, Bipolar, Emotional Problems, Mood Swings, Panic Attack, Psych Hospitalization(s), PTSD, Suicide Attempt, Suicidal Ideation Other Psychiatric History: Insomnia. Intermittent explosive disorder. 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 Wears a brace on right knee. Social & Family History - Family History Family Medical History: No Pertinent Family History - Tobacco Use Tobacco Use Status *Q: Current Every Day Tobacco User Years of Tobacco use: 20 Packs/Tins Daily: 1.5 - Caffeine Use Caffeine Use: Reports: Energy Drinks, Soda Other Caffeine Use: occasionally - Recreational Drug Use Recreational Drug Use: No - Living Situation & Occupation Living situation: Reports: with Significant Other Occupation: Disabled Review of Systems - Review of Systems Review Of Systems: See Below Constitutional: Reports: No Symptoms Eyes: Reports: No Symptoms Ears: Reports: No Symptoms Nose: Reports: No Symptoms Mouth/Throat: Reports: No Symptoms Respiratory: Reports: No Symptoms Cardiovascular: Reports: No Symptoms Genitourinary: Reports: No Symptoms Musculoskeletal: Reports: Other (left shoulder and left elbow pain) Skin: Reports: No Symptoms Neurological: Reports: No Symptoms Psychiatric: Reports: No Symptoms ED EXAM, GENERAL - Physical Exam Exam: See Below Exam Limited By: No Limitations General Appearance: Alert, No Apparent Distress Eye Exam: Bilateral Eye: PERRL Ears: Normal External Exam, Normal Canal Nose: Normal Inspection, Normal Mucosa, No Blood Throat/Mouth: Normal Inspection, Normal Lips, Normal Teeth Head: Atraumatic, Normocephalic Neck: Normal Inspection, Supple, Non-Tender, Full Range of Motion Respiratory/Chest: No Respiratory Distress, Lungs Clear, Normal Breath Sounds, No Accessory Muscle Use, Chest Non-Tender Cardiovascular: Normal Peripheral Pulses, Regular Rate, Rhythm, No Edema, No Gallop, No JVD, No Murmur, No Rub GI/Abdominal: Normal Bowel Sounds, Soft, Non-Tender, No Organomegaly, No Distention, No Abnormal Bruit Back Exam: Normal Inspection, Full Range of Motion Extremities: Normal Inspection, No Pedal Edema, Other (tenderness left elbow and shoulder) Neurological: Alert Psychiatric: Normal Affect Skin Exam: Warm Course - Vital Signs Text/Narrative:: Xray left shoulder and left elbow-negative Toradol 60 mg IM x1 No arm sling available in the ED Last Recorded V/S: Last Vital Signs Temp 36.9 C 04/12/21 07:47 Pulse 77 04/12/21 07:47 Resp 20 04/12/21 07:47 BP 132/77 04/12/21 07:47 Pulse Ox 96 04/12/21 07:47 - Orders/Labs/Meds Meds: Medications Discontinued Medications Generic Name Dose Route Start Last Admin Trade Name Yajaira PRN Reason Stop Dose Admin Ketorolac Tromethamine 60 mg 04/12/21 08:57 04/12/21 09:09 Ketorolac 30 Mg/Ml Sdv IM 04/12/21 08:58 60 mg NOW STA Administration Departure - Departure Time of Disposition: 09:00 Disposition: Home, Self-Care 01 Condition: Good Clinical Impression: Shoulder sprain, Elbow contusion - Discharge Information Instructions: Shoulder Sprain, Contusion Referrals: Jimbo Sood NP [Primary Care Provider] - Forms: ED Department Discharge Additional Instructions: Please read discharge instructions on shoulder sprain and elbow contusion Apply ice or heat whichever you prefer Take aleve(2 tablets) with tylenol 1000 mg every 12 hours as needed for pain We will call you if there is any change on the xray reading Sepsis Event Note (ED) - Evaluation Sepsis Screening Result: No Definite Risk
[2021-04-12] MEDS ORDERED: Ketorolac 30 MG/ML SDV IM STA (08:57)
--- NOTE | 2021-04-12 11:10 | CR ---
LEFT ELBOW INDICATION: Fall with elbow injury two days prior. FINDINGS: Three views of the left elbow revealed no evidence of joint effusion, fracture or dislocation. No significant appearing degenerative changes were noted. Normal bone density is noted. IMPRESSION: Normal left elbow. MTDD
--- NOTE | 2021-04-12 11:13 | CR ---
LEFT SHOULDER INDICATION: Fall with shoulder injury two days prior. FINDINGS: Four images of the left shoulder were obtained 04/12/21 - no comparisons. An acute fracture, dislocation or other significant bone or joint abnormality was not identified. Adjacent ribs and lung were unremarkable. IMPRESSION: Normal left shoulder. If occult fracture site is suspected clinically, or symptoms are persistent, reexamination in 10 to 14 days may be helpful. Also, more advanced imaging may be helpful, such as MRI of the left shoulder, especially if soft tissue injury is suspected clinically. MTDD
== END 2021-04-12 09:28 | disposition home or self-care (01) ==
LOC: FB.ED 07:47
DX: S43.402A Unspecified sprain of left shoulder joint, initial encounter (principal); S50.02XA Contusion of left elbow, initial encounter; J44.9 Chronic obstructive pulmonary disease, unspecified; E66.9 Obesity, unspecified; Z68.36 Body mass index [BMI] 36.0-36.9, adult; Z72.0 Tobacco use; Z91.048 Other nonmedicinal substance allergy status; Z91.030 Bee allergy status; Z88.8 Allergy status to other drugs, medicaments and biological substances; Z79.899 Other long term (current) drug therapy; W18.30XA Fall on same level, unspecified, initial encounter
CPT/HCPCS: 73030; 73080; 96372; 99283; J1885

== ENCOUNTER 2021-04-18 21:44 | Emergency (ER) | payer MEDICARE, MEDICAID ==
[2021-04-18] MEDS ORDERED: Ketorolac 30 MG/ML SDV IM STA (22:01)
[2021-04-18] MEDS ORDERED: Cyclobenzaprine 10 MG Tab PO STA (22:01)
--- NOTE | 2021-04-18 22:11 | EDM.PDOC ---
ED HPI GENERAL MEDICAL PROBLEM - General Stated Complaint: BACK/NECK PAIN Time Seen by Provider: 04/18/21 21:45 Source of Information: Reports: Patient History Limitations: Reports: No Limitations - History of Present Illness INITIAL COMMENTS - FREE TEXT/NARRATIVE: Patient is here c/o of neck pain. He was seen on 04/12/21 because of left shoulder and left elbow injury when he fell and landed on his left shoulderlelbow. The xrays were negative and now c/o neck pain. He is taking baclofen, aleve and tylenol w/o significant relief. - Related Data Allergies Allergy/AdvReac Type Severity Reaction Status Date / Time adhesive Allergy Rash Verified 12/20/20 22:52 bee pollen Allergy Throat Verified 12/20/20 22:52 closes, Rash cariprazine [From Vraylar] Allergy Nausea, Verified 12/20/20 22:52 Rash varenicline [From Chantix] Allergy Depression Verified 12/20/20 22:52 seroquel Allergy Nausea Uncoded 12/20/20 22:52 Home Meds: Home Meds EPINEPHrine [Epipen] 0.3 mg IM ASDIRECTED PRN 04/28/19 [History] Omeprazole 20 mg PO DAILY 11/24/19 [History] Naproxen Sodium [Aleve] 220 mg PO Q12HR PRN 06/08/20 [History] traZODone 100 mg PO BEDTIME PRN 10/02/20 [History] risperiDONE [Risperdal] 2 mg PO BID 10/24/20 [History] Baclofen 10 mg PO TID #30 tablet 12/12/20 [Rx] Lidocaine 4% [Aspercreme 4%] 1 each TOP Q12HR #30 patch 12/12/20 [Rx] lamoTRIgine [Lamotrigine] 200 mg PO DAILY 12/12/20 [History] Diclofenac Sodium 75 mg PO BID 12/20/20 [History] buPROPion [buPROPion XL] 150 mg PO BID 01/16/21 [History] Past Medical History - Past Health History Medical/Surgical History: Denies Medical/Surgical History HEENT History: Reports: Impaired Vision Other HEENT History: Wears glasses. Cardiovascular History: Reports: Other (See Below) Other Cardiovascular History: Palpitations. Respiratory History: Reports: Asthma, COPD Gastrointestinal History: Reports: Irritable Bowel Syndrome Musculoskeletal History: Reports: Back Pain, Chronic, Other (See Below) Other Musculoskeletal History: Shoulder dislocation. Scoliosis. Leg problems, uses a walker at times. Neurological History: Reports: Migraines, Seizure, Other (See Below) Other Neuro History: Pseudoseizure. Psychiatric History: Reports: Anxiety, Bipolar, Emotional Problems, Mood Swings, Panic Attack, Psych Hospitalization(s), PTSD, Suicide Attempt, Suicidal Ideation Other Psychiatric History: Insomnia. Intermittent explosive disorder. 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 Wears a brace on right knee. Social & Family History - Family History Family Medical History: No Pertinent Family History - Caffeine Use Caffeine Use: Reports: Energy Drinks, Soda Other Caffeine Use: occasionally - Living Situation & Occupation Living situation: Reports: with Significant Other Occupation: Disabled ED ROS GENERAL - Review of Systems Review Of Systems: See Below Constitutional: Reports: No Symptoms HEENT: Reports: No Symptoms Respiratory: Reports: No Symptoms Cardiovascular: Reports: No Symptoms Endocrine: Reports: No Symptoms GI/Abdominal: Reports: No Symptoms : Reports: No Symptoms Musculoskeletal: Reports: Neck Pain Neurological: Reports: No Symptoms Psychiatric: Reports: No Symptoms ED EXAM, GENERAL - Physical Exam Exam: See Below Exam Limited By: No Limitations General Appearance: Alert, No Apparent Distress Eye Exam: Bilateral Eye: PERRL Ears: Normal External Exam, Normal Canal, Normal TMs Nose: Normal Inspection, Normal Mucosa, No Blood Throat/Mouth: Normal Inspection, Normal Lips Head: Atraumatic, Normocephalic Neck: Normal Inspection, Supple, Non-Tender, Full Range of Motion Respiratory/Chest: No Respiratory Distress, Lungs Clear, Normal Breath Sounds, No Accessory Muscle Use, Chest Non-Tender Cardiovascular: Normal Peripheral Pulses, Regular Rate, Rhythm, No Edema, No Gallop, No JVD, No Murmur, No Rub GI/Abdominal: Normal Bowel Sounds, Soft, Non-Tender, No Organomegaly, No Distention, No Abnormal Bruit Back Exam: Normal Inspection, Full Range of Motion, Muscle Spasm, Vertebral Tenderness Extremities: Normal Inspection, Normal Range of Motion, Non-Tender Neurological: Alert, Oriented, CN II-XII Intact Psychiatric: Normal Affect, Normal Mood Course - Vital Signs Text/Narrative:: Xray c-spine Toradol 60 mg IM x1 Flexeril 10 mg PO x1 - Orders/Labs/Meds Orders: Active Orders 24 hr Category Date Time Status C-Spine [Cervical Spine 2V or 3V] [CR] Stat Exams 04/18/21 21:59 Ordered Meds: Medications Discontinued Medications Generic Name Dose Route Start Last Admin Trade Name Yajaira PRN Reason Stop Dose Admin Cyclobenzaprine HCl 10 mg 04/18/21 22:01 Cyclobenzaprine 10 Mg Tab PO 04/18/21 22:02 NOW STA Ketorolac Tromethamine 60 mg 04/18/21 22:01 Ketorolac 30 Mg/Ml Sdv IM 04/18/21 22:02 NOW STA Departure - Departure Time of Disposition: 23:45 Disposition: Home, Self-Care 01 Condition: Good Clinical Impression: Cervical strain, acute - Discharge Information Instructions: Cervical Sprain, [id number] Additional Instructions: Please read discharge instructions on cervical strain Apply ice or heat whichever your prefer Take all the following medications at the same time for better pain relief: Aleve(2-3 tablets) Baclofen 10 mg twice daily follow up with your doctor this week so your doctor can order for a physical therapy if the medicines aren't helping - My Orders Last 24 Hours: My Active Orders 04/18/21 21:59 C-Spine [Cervical Spine 2V or 3V] [CR] Stat - Assessment/Plan Last 24 Hours: My Active Orders 04/18/21 21:59 C-Spine [Cervical Spine 2V or 3V] [CR] Stat
[2021-04-18 23:55] VITALS: BP 156/98; PULSE 102
== END 2021-04-18 22:35 | disposition home or self-care (01) ==
LOC: FB.ED 21:44
DX: S16.1XXA Strain of muscle, fascia and tendon at neck level, initial encounter (principal); J44.9 Chronic obstructive pulmonary disease, unspecified; E66.9 Obesity, unspecified; Z68.36 Body mass index [BMI] 36.0-36.9, adult; Z79.899 Other long term (current) drug therapy; Z91.048 Other nonmedicinal substance allergy status; Z91.030 Bee allergy status; W18.39XA Other fall on same level, initial encounter
CPT/HCPCS: 72040; 96372; 99283; A9270; J1885

== ENCOUNTER 2021-06-20 00:03 | Emergency (ER) | payer MEDICARE, MEDICAID ==
[2021-06-20] MEDS ORDERED: traMADol 50 MG Tab PO ONE (00:04)
[2021-06-20 00:14] VITALS: BP 150/100; PULSE 96
[2021-06-20] MEDS ORDERED: Cyclobenzaprine 10 MG Tab PO ONE (00:17)
[2021-06-20] MEDS ORDERED: Ketorolac 30 MG/ML SDV IM ONE (00:17)
== END 2021-06-20 01:05 | disposition home or self-care (01) ==
LOC: FB.ED 00:03
DX: S39.012A Strain of muscle, fascia and tendon of lower back, initial encounter (principal); J44.9 Chronic obstructive pulmonary disease, unspecified; E66.9 Obesity, unspecified; Z72.0 Tobacco use; Z88.8 Allergy status to other drugs, medicaments and biological substances; Z88.0 Allergy status to penicillin; Z68.35 Body mass index [BMI] 35.0-35.9, adult; Z79.899 Other long term (current) drug therapy; W18.39XA Other fall on same level, initial encounter
CPT/HCPCS: 72100; 96372; 99283; A9270-GY; J1885

== ENCOUNTER 2021-09-11 20:33 | Emergency (ER) | payer MEDICARE, MEDICAID ==
[2021-09-11 21:17] VITALS: BP 152/100; PULSE 96
[2021-09-11] MEDS ORDERED: Ketorolac 30 MG/ML SDV IM STA (21:30)
[2021-09-11] MEDS ORDERED: Acetaminophen/HYDROcodone 325-5 MG Tab PO STA (21:30)
== END 2021-09-11 21:55 | disposition home or self-care (01) ==
LOC: FB.ED 20:33
DX: S00.83XA Contusion of other part of head, initial encounter (principal); J44.9 Chronic obstructive pulmonary disease, unspecified; E66.9 Obesity, unspecified; Z68.29 Body mass index [BMI] 29.0-29.9, adult; Z79.899 Other long term (current) drug therapy; W22.8XXA Striking against or struck by other objects, initial encounter
CPT/HCPCS: 96372; 99282; 99283; A9270-GY; J1885

== ENCOUNTER 2021-10-18 18:31 | Emergency (ER) | payer MEDICARE, MEDICAID ==
[2021-10-18] MEDS ORDERED: Ketorolac 30 MG/ML SDV IM STA (19:08)
[2021-10-18] MEDS ORDERED: Cyclobenzaprine 10 MG Tab PO STA (19:08)
[2021-10-18 19:18] VITALS: BP 127/82; PULSE 56
[2021-10-18] MEDS ORDERED: Meperidine PF 50 MG/ML Syringe IM ONE (20:13)
[2021-10-18] MEDS ORDERED: hydrOXYzine HCl 50 MG/ML SDV IM ONE (20:13)
[2021-10-18] MEDS ORDERED: HYDROmorphone 2 MG/ML SDV ONE (20:17)
[2021-10-18] MEDS ORDERED: HYDROmorphone 2 MG/ML SDV IM ONE (20:18)
== END 2021-10-18 20:30 | disposition home or self-care (01) ==
LOC: FB.ED 18:31
DX: S06.0X0A Concussion without loss of consciousness, initial encounter (principal); S39.92XA Unspecified injury of lower back, initial encounter; J44.9 Chronic obstructive pulmonary disease, unspecified; E66.9 Obesity, unspecified; Z68.33 Body mass index [BMI] 33.0-33.9, adult; Z79.899 Other long term (current) drug therapy; Z91.048 Other nonmedicinal substance allergy status; Z88.8 Allergy status to other drugs, medicaments and biological substances; Z91.030 Bee allergy status
CPT/HCPCS: 36415; 70450; 72100; 73562; 80053; 85025; 96372; 99282; 99284; A9270; J1170; J1885; J3410

== ENCOUNTER 2021-11-17 05:34 | Emergency (ER) | payer MEDICARE, MEDICAID ==
[2021-11-17] MEDS ORDERED: Bacitracin Oint 1 GM U/D Packet TOP ONE (06:37)
[2021-11-17] MEDS ORDERED: Lidocaine 1% 5 ML VIAL INJECT ONE (06:37)
[2021-11-17 06:38] VITALS: BP 143/98; PULSE 65
== END 2021-11-17 07:03 | disposition home or self-care (01) ==
LOC: FB.ED 05:34
DX: S91.312A Laceration without foreign body, left foot, initial encounter (principal); J44.9 Chronic obstructive pulmonary disease, unspecified; F17.210 Nicotine dependence, cigarettes, uncomplicated; E66.9 Obesity, unspecified; Z68.34 Body mass index [BMI] 34.0-34.9, adult; Z91.048 Other nonmedicinal substance allergy status; Z91.030 Bee allergy status; Z88.8 Allergy status to other drugs, medicaments and biological substances; Z79.899 Other long term (current) drug therapy; W26.8XXA Contact with other sharp object(s), not elsewhere classified, initial encounter
CPT/HCPCS: 12001; 99281; 99282

== ENCOUNTER 2022-04-10 23:39 | Emergency (ER) | payer MEDICARE, MEDICAID ==
[2022-04-10] MEDS ORDERED: Acetaminophen/HYDROcodone 325-5 MG Tab PO ONE (23:40)
[2022-04-10 23:59] VITALS: PULSE 69
[2022-04-11 00:39] VITALS: BP 158/102
== END 2022-04-11 00:39 | disposition home or self-care (01) ==
LOC: FB.ED 23:39
DX: S39.92XA Unspecified injury of lower back, initial encounter (principal); M62.830 Muscle spasm of back; J44.9 Chronic obstructive pulmonary disease, unspecified; E66.9 Obesity, unspecified; Z68.37 Body mass index [BMI] 37.0-37.9, adult; Z72.0 Tobacco use; Z91.048 Other nonmedicinal substance allergy status; Z91.030 Bee allergy status; Z88.8 Allergy status to other drugs, medicaments and biological substances; Z79.899 Other long term (current) drug therapy; W18.30XA Fall on same level, unspecified, initial encounter; Y92.481 Parking lot as the place of occurrence of the external cause
CPT/HCPCS: 73030-LT; 99283; A9270-GY

== ENCOUNTER 2022-05-09 22:10 | Emergency (ER) | payer MEDICARE, MEDICAID ==
[2022-05-09] MEDS ORDERED: Ketorolac 30 MG/ML SDV IM ONE (22:30)
[2022-05-09 22:40] VITALS: BP 143/102; PULSE 93
== END 2022-05-09 23:05 | disposition home or self-care (01) ==
LOC: FB.ED 22:10
DX: G89.29 Other chronic pain (principal); M54.50 Low back pain, unspecified; Z91.048 Other nonmedicinal substance allergy status; Z88.1 Allergy status to other antibiotic agents; Z91.030 Bee allergy status; Z88.8 Allergy status to other drugs, medicaments and biological substances; Z79.899 Other long term (current) drug therapy
CPT/HCPCS: 96372; 99283; J1885

== ENCOUNTER 2022-05-29 05:48 | Emergency (ER) | payer MEDICARE, MEDICAID ==
[2022-05-29 06:44] LABS: ESTIMATED GFR 112 mL/min (>60)
[2022-05-29] MEDS ORDERED: Furosemide 40 MG Tab PO ONE (07:37)
[2022-05-29] MEDS ORDERED: Metolazone 5 MG Tab PO ONE (07:37)
[2022-05-29 08:44] VITALS: BP 145/82; PULSE 77
== END 2022-05-29 08:35 | disposition home or self-care (01) ==
LOC: FB.ED 05:48
DX: J44.9 Chronic obstructive pulmonary disease, unspecified (principal); R60.0 Localized edema; E66.9 Obesity, unspecified; Z68.37 Body mass index [BMI] 37.0-37.9, adult; Z72.0 Tobacco use; Z91.048 Other nonmedicinal substance allergy status; Z88.1 Allergy status to other antibiotic agents; Z91.030 Bee allergy status; Z88.8 Allergy status to other drugs, medicaments and biological substances; Z79.899 Other long term (current) drug therapy
CPT/HCPCS: 36415; 71045; 80053; 83880; 84484; 85025; 85379; 93005; 99284; A9270

== ENCOUNTER 2022-06-09 03:09 | Emergency (ER) | payer MEDICARE, MEDICAID ==
[2022-06-09] MEDS ORDERED: Aspirin 81 MG Tab.Chew PO ONE (03:19)
[2022-06-09] MEDS ORDERED: Albuterol/Ipratropium 3.0-0.5 MG/3 ML Neb Soln NEB ONE (03:21)
[2022-06-09] MEDS ORDERED: Albuterol/Ipratropium 3.0-0.5 MG/3 ML Neb Soln ONE (03:22)
[2022-06-09 03:53] LABS: ESTIMATED GFR 112 mL/min (>60)
[2022-06-09 04:18] VITALS: BP 147/102; PULSE 83
[2022-06-09 04:39] LABS: CORONAVIRUS COVID-19 NAA NEGATIVE (NEGATIVE)
[2022-06-09] MEDS ORDERED: Lactated Ringers 1,000 ML IV ONE (05:47)
[2022-06-09] MEDS ORDERED: Potassium Chloride 20 MEQ Tab.ER PO ONE (05:52)
[2022-06-09] MEDS ORDERED: Nicotine Polacrilex 2 MG Gum CHEW STA (05:53)
[2022-06-09] MEDS ORDERED: hydrOXYzine HCl 25 MG Tab PO ONE (05:57)
[2022-06-09] MEDS ORDERED: Amoxicillin/Clavulanate K 875-125 MG Tab PO ONE (05:58)
== END 2022-06-09 07:30 | disposition home or self-care (01) ==
LOC: FB.ED 03:09
DX: J18.9 Pneumonia, unspecified organism (principal); T50.2X5A Adverse effect of carbonic-anhydrase inhibitors, benzothiadiazides and other diuretics, initial encounter; J44.9 Chronic obstructive pulmonary disease, unspecified; F30.9 Manic episode, unspecified; E87.6 Hypokalemia; F17.210 Nicotine dependence, cigarettes, uncomplicated; E66.9 Obesity, unspecified; Z91.048 Other nonmedicinal substance allergy status; Z88.8 Allergy status to other drugs, medicaments and biological substances; Z91.030 Bee allergy status; Z79.899 Other long term (current) drug therapy; Z20.822 Contact with and (suspected) exposure to COVID-19; Z68.41 Body mass index [BMI] 40.0-44.9, adult
CPT/HCPCS: 0241U; 36415; 71045; 80053; 83735; 84484; 85025; 93005; 93010; 94640; 96360; 99283; 99285-25; A9270-GY; J7120; J7620

== ENCOUNTER 2022-07-23 21:34 | Emergency (ER) | payer MEDICARE, MEDICAID ==
[2022-07-23] MEDS ORDERED: traMADol 50 MG Tab PO ONE (21:35)
[2022-07-23] MEDS: Ondansetron 4 MG Tab.DIS PO ONE (22:33)
[2022-07-23 23:07] VITALS: BP 141/85; PULSE 67
== END 2022-07-23 23:50 | disposition home or self-care (01) ==
LOC: FB.ED 21:34
DX: S09.90XA Unspecified injury of head, initial encounter (principal); S39.012A Strain of muscle, fascia and tendon of lower back, initial encounter; S80.11XA Contusion of right lower leg, initial encounter; J45.909 Unspecified asthma, uncomplicated; J44.9 Chronic obstructive pulmonary disease, unspecified; E66.9 Obesity, unspecified; Z91.030 Bee allergy status; Z88.8 Allergy status to other drugs, medicaments and biological substances; Z91.09 Other allergy status, other than to drugs and biological substances; Z72.0 Tobacco use; W19.XXXA Unspecified fall, initial encounter; W00.0XXA Fall on same level due to ice and snow, initial encounter
CPT/HCPCS: 70450; 72072; 72100; 72125; 73590; 99284; A9270; Q0162

== ENCOUNTER 2022-08-06 20:04 | Inpatient (IN) | payer MEDICARE, MEDICAID ==
[2022-08-06 20:46] LABS: ESTIMATED GFR 79 mL/min (>60)
[2022-08-06] MEDS ORDERED: Ondansetron 4 MG/2 ML SDV IV PRN (21:27)
[2022-08-06] MEDS ORDERED: VANCOmycin 1 GM/200 ML 1 GM in Premix Bag 1 BAG IV SCH (21:30)
[2022-08-06] MEDS ORDERED: Albuterol 0.083% 2.5 MG/3 ML Neb Soln INH PRN (21:35)
[2022-08-06] MEDS ORDERED: traZODone 50 MG Tab ONE (23:03)
[2022-08-06] MEDS: OLANZapine 5 MG Tab PO SCH (23:05)
[2022-08-06] MEDS: Pregabalin 75 MG Cap PO SCH (23:05)
[2022-08-06] MEDS: Meropenem 1,000 MG in Sodium Chloride 0.9% 100 ML IV SCH (23:07)
[2022-08-06] MEDS: traZODone 100 MG Tab PO SCH (23:08)
[2022-08-06] MEDS: Sodium Chloride 0.9% 10 ML Syringe FLUSH PRN ×2 (23:16→23:47)
[2022-08-06] MEDS: HYDROmorphone 2 MG/ML SDV IVPUSH PRN (23:43)
[2022-08-06] MEDS: Ketorolac 30 MG/ML SDV IM PRN (23:51)
[2022-08-07] MEDS: Nicotine Polacrilex 2 MG Gum CHEW PRN ×5 (00:21→22:01)
[2022-08-07] MEDS: Meropenem 1,000 MG in Sodium Chloride 0.9% 100 ML IV SCH (06:40)
[2022-08-07 06:55] LABS: ESTIMATED GFR 99 mL/min (>60)
[2022-08-07] MEDS: Sodium Chloride 0.9% 10 ML Syringe FLUSH PRN ×7 (07:10→23:30)
[2022-08-07] MEDS ORDERED: Non-Formulary Medication 1 Each (Pregabalin [Lyrica] 150 MG Cap) PO SCH (09:00)
[2022-08-07] MEDS ORDERED: Potassium Chloride 20 MEQ in Premix Bag 1 BAG IV ONE (09:46)
[2022-08-07] MEDS ORDERED: NS + KCl 20mEq/L 1,000 ML IV SCH (10:00)
[2022-08-07] MEDS: lamoTRIgine 100 MG Tab PO SCH (10:46)
[2022-08-07] MEDS: Escitalopram 20 MG Tab PO SCH (10:46)
[2022-08-07] MEDS: Pregabalin 100 MG Cap PO SCH (10:46)
[2022-08-07] MEDS: VANCOmycin 1.5 GM/300 ML 300 ML IV SCH ×2 (10:46→21:59)
[2022-08-07] MEDS ORDERED: Clindamycin in 0.9 % Sod Chlor 600 MG in Premix Bag 1 BAG IV SCH ×2 (12:00)
[2022-08-07] MEDS: Meropenem 1 GM SDV IVPUSH SCH ×2 (13:34→21:48)
[2022-08-07] MEDS: Pregabalin 75 MG Cap PO SCH (21:14)
[2022-08-07] MEDS: Saccharomyces Boulardii (Probiotic) 250 MG Cap PO SCH (21:16)
[2022-08-07] MEDS: OLANZapine 5 MG Tab PO SCH (21:16)
[2022-08-07] MEDS: traZODone 100 MG Tab PO SCH (21:16)
[2022-08-07] MEDS: HYDROmorphone 2 MG/ML SDV IVPUSH PRN (22:14)
[2022-08-08] MEDS: Nicotine Polacrilex 2 MG Gum CHEW PRN ×3 (01:20→18:41)
[2022-08-08] MEDS: Meropenem 1 GM SDV IVPUSH SCH (06:50)
[2022-08-08] MEDS: Sodium Chloride 0.9% 10 ML Syringe FLUSH PRN (06:55)
[2022-08-08 07:14] LABS: ESTIMATED GFR 99 mL/min (>60)
[2022-08-08] MEDS: Pregabalin 100 MG Cap PO SCH (08:21)
[2022-08-08] MEDS: Escitalopram 20 MG Tab PO SCH (08:23)
[2022-08-08] MEDS: lamoTRIgine 100 MG Tab PO SCH (08:23)
[2022-08-08] MEDS: Saccharomyces Boulardii (Probiotic) 250 MG Cap PO SCH ×2 (08:24→21:29)
[2022-08-08] MEDS ORDERED: Pregabalin 100 MG Cap ONE (08:31)
[2022-08-08] MEDS: Cephalexin 500 MG Cap PO SCH ×3 (09:46→21:31)
[2022-08-08] MEDS: Doxycycline 100 MG Tab PO SCH ×2 (09:46→21:30)
[2022-08-08] MEDS: traZODone 100 MG Tab PO SCH (21:30)
[2022-08-08] MEDS: OLANZapine 5 MG Tab PO SCH (21:30)
[2022-08-08] MEDS: Pregabalin 75 MG Cap PO SCH (21:34)
[2022-08-08] MEDS: Ketorolac 30 MG/ML SDV IM PRN (21:35)
[2022-08-09] MEDS: Cephalexin 500 MG Cap PO SCH ×2 (03:33→08:27)
[2022-08-09] MEDS: lamoTRIgine 100 MG Tab PO SCH (08:26)
[2022-08-09] MEDS: Escitalopram 20 MG Tab PO SCH (08:27)
[2022-08-09] MEDS: Nicotine Polacrilex 2 MG Gum CHEW PRN (08:27)
[2022-08-09] MEDS: Doxycycline 100 MG Tab PO SCH (08:28)
[2022-08-09] MEDS: Saccharomyces Boulardii (Probiotic) 250 MG Cap PO SCH (08:29)
[2022-08-09] MEDS: Pregabalin 100 MG Cap PO SCH (08:32)
[2022-08-09 09:47] VITALS: BP 143/73; PULSE 69
== END 2022-08-09 10:07 | disposition home or self-care (01) | DRG 603 ==
LOC: FB.ED 20:04 → FB.MS 21:38
PROVIDERS: ADMIT Family Medicine; ATTEND Family Medicine
DX: L03.314 Cellulitis of groin (principal); F31.12 Bipolar disorder, current episode manic without psychotic features, moderate; F31.9 Bipolar disorder, unspecified; E66.9 Obesity, unspecified; K61.0 Anal abscess; L72.3 Sebaceous cyst; E87.6 Hypokalemia; H54.7 Unspecified visual loss; J44.9 Chronic obstructive pulmonary disease, unspecified; K76.0 Fatty (change of) liver, not elsewhere classified; F17.210 Nicotine dependence, cigarettes, uncomplicated; F41.0 Panic disorder [episodic paroxysmal anxiety]; F43.10 Post-traumatic stress disorder, unspecified; M54.9 Dorsalgia, unspecified; G89.29 Other chronic pain; N50.89 Other specified disorders of the male genital organs; L08.9 Local infection of the skin and subcutaneous tissue, unspecified; Z91.09 Other allergy status, other than to drugs and biological substances; Z91.030 Bee allergy status; Z88.8 Allergy status to other drugs, medicaments and biological substances; Z79.899 Other long term (current) drug therapy
CPT/HCPCS: 36415; 72192; 80048; 80053; 83605; 85025; 86140; 87040; 99222; 99232; 99238; 99284; 99285; A9270-GY; J1170; J1885; J2185; J3370; J3480; J3490

== ENCOUNTER 2022-09-01 13:15 | Emergency (ER) | payer MEDICARE, MEDICAID ==
[2022-09-01 13:54] LABS: ESTIMATED GFR 99 mL/min (>60)
[2022-09-01 14:03] LABS: HEMOGLOBIN A1C 5.4 % (<5.7)
[2022-09-01] MEDS ORDERED: Lactated Ringers 1,000 ML IV ONE (14:16)
[2022-09-01] MEDS ORDERED: cefTRIAXone 2 GM Vial IVPUSH ONE (14:16)
[2022-09-01] MEDS ORDERED: Ketorolac 30 MG/ML SDV IVPUSH ONE (14:31)
[2022-09-01] MEDS ORDERED: Acetaminophen 325 MG Tab PO ONE (14:32)
[2022-09-01] MEDS: Sodium Chloride 0.9% 10 ML Syringe FLUSH PRN ×2 (14:42→14:46)
[2022-09-01 17:44] VITALS: BP 130/84; PULSE 72
== END 2022-09-01 15:23 | disposition home or self-care (01) ==
LOC: FB.ED 13:15
DX: N49.2 Inflammatory disorders of scrotum (principal); R07.89 Other chest pain; M54.2 Cervicalgia; G89.29 Other chronic pain; E87.6 Hypokalemia; F17.200 Nicotine dependence, unspecified, uncomplicated; I50.9 Heart failure, unspecified; J44.9 Chronic obstructive pulmonary disease, unspecified; E66.9 Obesity, unspecified; Z91.048 Other nonmedicinal substance allergy status; Z88.8 Allergy status to other drugs, medicaments and biological substances; Z88.1 Allergy status to other antibiotic agents; Z79.899 Other long term (current) drug therapy
CPT/HCPCS: 36415; 71046; 80053; 81001; 83036; 83605; 83735; 83880; 84132; 84484; 85025; 86140; 87040; 93005; 96361; 96374; 96375; 99285; A9270; J0696; J1885; J3490; J7120

== ENCOUNTER 2022-09-22 22:59 | Emergency (ER) | payer MEDICARE, MEDICAID ==
[2022-09-22 23:35] VITALS: BP 159/96; PULSE 97
== END 2022-09-22 23:41 | disposition home or self-care (01) ==
LOC: FB.ED 22:59
DX: F32.A Depression, unspecified (principal); S71.101A Unspecified open wound, right thigh, initial encounter; J44.9 Chronic obstructive pulmonary disease, unspecified; E66.9 Obesity, unspecified; Z91.040 Latex allergy status; Z91.030 Bee allergy status; Z88.8 Allergy status to other drugs, medicaments and biological substances; Z68.38 Body mass index [BMI] 38.0-38.9, adult
CPT/HCPCS: 99282; 99283

== ENCOUNTER 2022-10-06 00:31 | Emergency (ER) | payer MEDICARE, MEDICAID ==
[2022-10-06 00:42] VITALS: BP 169/108; PULSE 86
== END 2022-10-06 01:00 | disposition home or self-care (01) ==
LOC: FB.ED 00:31
DX: Z48.01 Encounter for change or removal of surgical wound dressing (principal); J44.9 Chronic obstructive pulmonary disease, unspecified; E66.9 Obesity, unspecified; Z68.27 Body mass index [BMI] 27.0-27.9, adult; Z91.048 Other nonmedicinal substance allergy status; Z88.8 Allergy status to other drugs, medicaments and biological substances; Z91.030 Bee allergy status; Z79.899 Other long term (current) drug therapy
CPT/HCPCS: 99282

== ENCOUNTER 2022-12-12 21:01 | Emergency (ER) | payer MEDICARE, MEDICAID ==
[2022-12-12 22:09] LABS: BASOPHILS ABSOLUTE AUTO 0.1 x10-3/uL (0.0-0.3); BASOPHILS PERCENT AUTO 0.4 % (0.3-3.8); EOSINOPHILS ABSOLUTE AUTO 0.1 x10-3/uL (0.0-0.6); EOSINOPHILS PERCENT AUTO 0.4 % (0.1-6.8); HEMATOCRIT 45.2 % (38.3-50.1); HEMOGLOBIN 15.2 g/dL (12.9-17.7); LYMPHOCYTES ABSOLUTE AUTO 2.6 x10-3/uL (0.5-4.5); LYMPHOCYTES PERCENT AUTO 19.7 % (15.8-45.3); MEAN CORPUSCULAR HEMOGLOBIN 31.7 pg (27.0-33.3); MEAN CORPUSCULAR HGB CONC 33.7 g/dL (28.7-35.3); MEAN CORPUSCULAR VOLUME 93.9 fL (80.8-98.7); MEAN PLATELET VOLUME 8.3 fL (6.7-11.0); MONOCYTES ABSOLUTE AUTO 0.7 x10-3/uL (0.0-1.2); MONOCYTES PERCENT AUTO 5.2 % (5.5-15.2); NEUTROPHILS ABSOLUTE AUTO 9.6 x10-3/uL (1.7-6.9); NEUTROPHILS PERCENT AUTO 74.3 % (40.3-71.8); PLATELET COUNT,PLT 206 x10(3)uL (117-477); RED BLOOD CELL COUNT 4.81 x10(6)uL (3.90-5.90); RED CELL DISTRIBUTION WIDTH 13.4 % (12.4-15.0)
[2022-12-12 22:13] LABS: BLOOD UREA NITROGEN,BUN 9 mg/dL (7-18); CARBON DIOXIDE,CO2 28 mmol/L (21-32); CHLORIDE,CL 105 mmol/L (100-110); EST CRCL DRUG DOSING (CG) 118.53 mL/min; ESTIMATED GFR 98 mL/min (>60); GLUCOSE RANDOM 126 mg/dL (80-116); POTASSIUM,K 3.7 mmol/L (3.5-5.3); SODIUM,NA 143 mmol/L (135-145)
[2022-12-12 22:14] LABS: CALCIUM 9.1 mg/dL (8.6-10.2)
[2022-12-12 22:20] LABS: A/G RATIO 1.1; ALANINE AMINOTRANSFERASE,ALT 38 U/L (12-36); ALBUMIN 3.9 g/dL (3.5-5.2); ALKALINE PHOSPHATASE 83 IU/L (56-112); ASPARTATE AMNIOTRANSFERASE,AST 24 IU/L (5-25); BILIRUBIN TOTAL 0.3 mg/dL (0.1-1.3); PROTEIN TOTAL,TP 7.5 g/dL (6.0-8.0); SALICYLATE 3.4 mg/dL (<2.8)
[2022-12-12 22:53] LABS: ACETAMINOPHEN < 2 ug/mL (<2)
[2022-12-12 23:02] LABS: BILIRUBIN,URINE NEGATIVE (NEGATIVE); GLUCOSE,URINE NORMAL (NORMAL); KETONES,URINE NEGATIVE (NEGATIVE); LEUKOCYTE ESTERASE,URINE NEGATIVE (NEGATIVE); NITRITE,URINE NEGATIVE (NEGATIVE); OCCULT BLOOD,URINE NEGATIVE (NEGATIVE); PROTEIN,URINE NEGATIVE (NEGATIVE); UROBILINOGEN,URINE NORMAL (NEGATIVE)
[2022-12-12 23:04] LABS: COLOR,URINE YELLOW (YELLOW)
[2022-12-12 23:05] LABS: APPEARANCE,URINE CLEAR (CLEAR); BACTERIA,URINE OCCASIONAL (NS); MUCUS,URINE OCCASIONAL (NS); RBC,URINE NOT SEEN (0-5); SQUAMOUS EPITHELIAL CELLS,UR OCCASIONAL (NS,R,O); WBC,URINE 0-5 (0-5)
[2022-12-12 23:06] LABS: CALCIUM OXALATE CRYSTALS,URINE FEW (NS)
[2022-12-12 23:07] LABS: AMPHETAMINES SCREEN, URINE NEGATIVE (NEGATIVE); BARBITURATE SCREEN,URINE NEGATIVE (NEGATIVE); BENZODIAZEPINES SCREEN,URINE NEGATIVE (NEGATIVE); BUPRENORPHINE SCREEN,URINE NEGATIVE (NEGATIVE); METHADONE SCREEN, URINE NEGATIVE (NEGATIVE); METHAMPHETAMINE SCREEN, URINE NEGATIVE (NEGATIVE); OXYCODONE SCREEN,URINE NEGATIVE (NEGATIVE); PROPOXYPHENE SCREEN,URINE NEGATIVE (NEGATIVE); THC SCREEN,URINE NEGATIVE (NEGATIVE)
[2022-12-12] MEDS: Nicotine Polacrilex 2 MG Gum CHEW PRN (23:36)
[2022-12-13] MEDS: Nicotine Polacrilex 2 MG Gum CHEW PRN (06:19)
[2022-12-13 10:07] VITALS: BP 151/104; PULSE 75
== END 2022-12-13 11:38 | disposition still patient (30) ==
LOC: FB.ED 21:01
DX: R44.0 Auditory hallucinations (principal); J44.9 Chronic obstructive pulmonary disease, unspecified; F17.210 Nicotine dependence, cigarettes, uncomplicated; E66.9 Obesity, unspecified; Z68.38 Body mass index [BMI] 38.0-38.9, adult; Z91.048 Other nonmedicinal substance allergy status; Z88.8 Allergy status to other drugs, medicaments and biological substances; Z91.030 Bee allergy status; Z79.899 Other long term (current) drug therapy; Z20.822 Contact with and (suspected) exposure to COVID-19
CPT/HCPCS: 36415; 80053; 80143; 80179; 80307; 81001; 85025; 99284; A9270-GY; U0002

== ENCOUNTER 2023-01-29 23:47 | Emergency (ER) | payer MEDICARE, MEDICAID ==
[2023-01-30 00:22] VITALS: BP 150/102; PULSE 95
== END 2023-01-30 01:01 | disposition home or self-care (01) ==
LOC: FB.ED 23:47
DX: S60.222A Contusion of left hand, initial encounter (principal); S60.221A Contusion of right hand, initial encounter; S93.401A Sprain of unspecified ligament of right ankle, initial encounter; J44.9 Chronic obstructive pulmonary disease, unspecified; E66.9 Obesity, unspecified; Z88.8 Allergy status to other drugs, medicaments and biological substances; Z91.09 Other allergy status, other than to drugs and biological substances; J45.909 Unspecified asthma, uncomplicated; W22.8XXA Striking against or struck by other objects, initial encounter; Y93.01 Activity, walking, marching and hiking
CPT/HCPCS: 73130-50; 73610-RT; 99283

== ENCOUNTER 2023-03-24 20:51 | Emergency (ER) | payer MEDICARE, MEDICAID ==
[2023-03-24] MEDS ORDERED: Azithromycin 500 MG Tab PO ONE (22:30)
[2023-03-24] MEDS ORDERED: predniSONE 20 MG Tab PO ONE (22:30)
[2023-03-24] MEDS ORDERED: Doxycycline 100 MG Tab PO ONE (22:32)
[2023-03-25 01:38] VITALS: BP 129/80; PULSE 77
== END 2023-03-24 23:05 | disposition home or self-care (01) ==
LOC: FB.ED 20:51
DX: J44.1 Chronic obstructive pulmonary disease with (acute) exacerbation (principal); E66.9 Obesity, unspecified; F17.200 Nicotine dependence, unspecified, uncomplicated; Z68.35 Body mass index [BMI] 35.0-35.9, adult; Z79.899 Other long term (current) drug therapy; Z88.8 Allergy status to other drugs, medicaments and biological substances; Z91.048 Other nonmedicinal substance allergy status; Z91.030 Bee allergy status; Z88.6 Allergy status to analgesic agent
CPT/HCPCS: 99284; A9270; J7512

== ENCOUNTER 2023-04-09 05:11 | Emergency (ER) | payer MEDICARE, MEDICAID ==
[2023-04-09] MEDS ORDERED: methylPREDNISolone Sodium Succinate 125 MG/2 ML SDV IM ONE (05:41)
[2023-04-09] MEDS ORDERED: Albuterol/Ipratropium 3.0-0.5 MG/3 ML Neb Soln NEB ONE (05:41)
[2023-04-09 08:05] VITALS: BP 158/107; PULSE 93
== END 2023-04-09 07:44 | disposition home or self-care (01) ==
LOC: FB.ED 05:11
DX: J44.9 Chronic obstructive pulmonary disease, unspecified (principal); I50.9 Heart failure, unspecified; F17.210 Nicotine dependence, cigarettes, uncomplicated; E66.9 Obesity, unspecified; Z68.38 Body mass index [BMI] 38.0-38.9, adult; Z91.030 Bee allergy status; Z88.8 Allergy status to other drugs, medicaments and biological substances; Z91.048 Other nonmedicinal substance allergy status; Z88.6 Allergy status to analgesic agent; Z79.899 Other long term (current) drug therapy
CPT/HCPCS: 71045; 96372; 99285; J2930; J7620

== ENCOUNTER 2023-08-23 21:07 | Emergency (ER) | payer MEDICARE, MEDICAID ==
[2023-08-23 21:35] VITALS: BP 135/87; PULSE 92
[2023-08-23] MEDS: Diazepam 5 MG Tab PO ONE (22:13)
== END 2023-08-23 23:42 | disposition home or self-care (01) ==
LOC: FB.ED 21:07
DX: S40.012A Contusion of left shoulder, initial encounter (principal); S30.0XXA Contusion of lower back and pelvis, initial encounter; S20.219A Contusion of unspecified front wall of thorax, initial encounter; J45.909 Unspecified asthma, uncomplicated; E66.9 Obesity, unspecified; F17.210 Nicotine dependence, cigarettes, uncomplicated; Z91.030 Bee allergy status; Z88.8 Allergy status to other drugs, medicaments and biological substances; Z91.048 Other nonmedicinal substance allergy status; Z79.899 Other long term (current) drug therapy; Z68.37 Body mass index [BMI] 37.0-37.9, adult; W19.XXXA Unspecified fall, initial encounter
CPT/HCPCS: 70450; 71046; 72100; 72125; 73030-LT; 73030-RT; 99284; A9270-GY

== ENCOUNTER 2023-10-06 05:36 | Emergency (ER) | payer MEDICARE, MEDICAID ==
[2023-10-06 06:22] LABS: BASOPHILS ABSOLUTE AUTO 0.1 x10-3/uL (0.0-0.3); BASOPHILS PERCENT AUTO 0.6 % (0.3-3.8); EOSINOPHILS ABSOLUTE AUTO 0.1 x10-3/uL (0.0-0.6); EOSINOPHILS PERCENT AUTO 0.9 % (0.1-6.8); HEMATOCRIT 45.2 % (38.3-50.1); LYMPHOCYTES ABSOLUTE AUTO 3.9 x10-3/uL (0.5-4.5); LYMPHOCYTES PERCENT AUTO 32.9 % (15.8-45.3); MEAN CORPUSCULAR HEMOGLOBIN 31.7 pg (27.0-33.3); MEAN CORPUSCULAR HGB CONC 33.2 g/dL (28.7-35.3); MEAN CORPUSCULAR VOLUME 95.5 fL (80.8-98.7); MEAN PLATELET VOLUME 8.1 fL (6.7-11.0); MONOCYTES ABSOLUTE AUTO 0.7 x10-3/uL (0.0-1.2); MONOCYTES PERCENT AUTO 5.9 % (5.5-15.2); NEUTROPHILS ABSOLUTE AUTO 7.2 x10-3/uL (1.7-6.9); NEUTROPHILS PERCENT AUTO 59.7 % (40.3-71.8); PLATELET COUNT,PLT 226 x10(3)uL (117-477); RED BLOOD CELL COUNT 4.74 x10(6)uL (3.90-5.90); RED CELL DISTRIBUTION WIDTH 14.3 % (12.4-15.0)
[2023-10-06 06:25] LABS: BLOOD UREA NITROGEN,BUN 8 mg/dL (7-18); CALCIUM 8.4 mg/dL (8.6-10.2); CARBON DIOXIDE,CO2 31 mmol/L (21-32); CHLORIDE,CL 103 mmol/L (100-110); CREATININE 0.8 mg/dL (0.70-1.30); EST CRCL DRUG DOSING (CG) 148.17 mL/min; ESTIMATED GFR 115 mL/min (>60); GLUCOSE RANDOM 105 mg/dL (80-116); SODIUM,NA 140 mmol/L (135-145)
[2023-10-06 06:30] LABS: ALANINE AMINOTRANSFERASE,ALT 29 U/L (12-36); ALBUMIN 3.4 g/dL (3.5-5.2); ALKALINE PHOSPHATASE 110 IU/L (56-112); ASPARTATE AMNIOTRANSFERASE,AST 15 IU/L (5-25); BILIRUBIN TOTAL 0.3 mg/dL (0.1-1.3); PROTEIN TOTAL,TP 6.8 g/dL (6.0-8.0)
[2023-10-06] MEDS: Iopamidol 755 Mg/ML 100 ML Bottle IV ONE (07:30)
[2023-10-06 08:38] VITALS: BP 135/85; PULSE 84
== END 2023-10-06 08:23 | disposition home or self-care (01) ==
LOC: FB.ED 05:36
DX: K62.5 Hemorrhage of anus and rectum (principal); K58.0 Irritable bowel syndrome with diarrhea; I50.9 Heart failure, unspecified; J44.9 Chronic obstructive pulmonary disease, unspecified; F17.210 Nicotine dependence, cigarettes, uncomplicated; Z91.048 Other nonmedicinal substance allergy status; Z91.030 Bee allergy status; Z88.8 Allergy status to other drugs, medicaments and biological substances; Z79.899 Other long term (current) drug therapy
CPT/HCPCS: 36415; 74177; 80053; 85025; 99284; Q9967

== ENCOUNTER 2023-11-21 20:54 | Emergency (ER) | payer MEDICARE, MEDICAID ==
[2023-11-21] MEDS ORDERED: Lidocaine 1% 20 ML MDV INFILT ONE (20:55)
[2023-11-21 21:04] VITALS: BP 141/83; PULSE 104
[2023-11-21] MEDS ORDERED: Bacitracin Oint 1 GM U/D Packet TOP ONE (21:44)
== END 2023-11-21 21:52 | disposition home or self-care (01) ==
LOC: FB.ED 20:54
DX: S91.202A Unspecified open wound of left great toe with damage to nail, initial encounter (principal); I50.9 Heart failure, unspecified; J45.909 Unspecified asthma, uncomplicated; E66.9 Obesity, unspecified; F17.200 Nicotine dependence, unspecified, uncomplicated; Z91.048 Other nonmedicinal substance allergy status; Z91.030 Bee allergy status; Z88.8 Allergy status to other drugs, medicaments and biological substances; Z79.899 Other long term (current) drug therapy; Z68.36 Body mass index [BMI] 36.0-36.9, adult; X58.XXXA Exposure to other specified factors, initial encounter
CPT/HCPCS: 11730; 99282-25; 99283

== ENCOUNTER 2024-01-17 02:17 | Emergency (ER) | payer MEDICARE, MEDICAID ==
[2024-01-17] MEDS ORDERED: ALPRAZolam 0.5 MG Tab PO ONE (02:18)
[2024-01-17 03:39] VITALS: BP 132/79; PULSE 86
== END 2024-01-17 03:00 | disposition home or self-care (01) ==
LOC: FB.ED 02:17
DX: F41.9 Anxiety disorder, unspecified (principal); E66.9 Obesity, unspecified; Z91.030 Bee allergy status; Z88.8 Allergy status to other drugs, medicaments and biological substances; Z79.899 Other long term (current) drug therapy; Z68.34 Body mass index [BMI] 34.0-34.9, adult
CPT/HCPCS: 93005; 99284; A9270

== ENCOUNTER 2024-08-12 22:13 | Emergency (ER) | payer MEDICARE, MEDICAID ==
[2024-08-12 23:22] LABS: BILIRUBIN,URINE NEGATIVE (NEGATIVE); GLUCOSE,URINE NORMAL (NORMAL); KETONES,URINE NEGATIVE (NEGATIVE); LEUKOCYTE ESTERASE,URINE NEGATIVE (NEGATIVE); NITRITE,URINE NEGATIVE (NEGATIVE); OCCULT BLOOD,URINE NEGATIVE (NEGATIVE); PROTEIN,URINE NEGATIVE (NEGATIVE); UROBILINOGEN,URINE NORMAL (NEGATIVE)
[2024-08-12 23:26] LABS: APPEARANCE,URINE CLEAR (CLEAR); COLOR,URINE YELLOW (YELLOW)
[2024-08-12 23:41] VITALS: BP 136/92; PULSE 105
== END 2024-08-12 23:34 | disposition home or self-care (01) ==
LOC: FB.ED 22:13
DX: N49.2 Inflammatory disorders of scrotum (principal); I50.9 Heart failure, unspecified; J44.9 Chronic obstructive pulmonary disease, unspecified; E66.9 Obesity, unspecified; F17.210 Nicotine dependence, cigarettes, uncomplicated; Z79.899 Other long term (current) drug therapy; Z88.8 Allergy status to other drugs, medicaments and biological substances; Z91.048 Other nonmedicinal substance allergy status; Z91.030 Bee allergy status; Z68.38 Body mass index [BMI] 38.0-38.9, adult
CPT/HCPCS: 81003; 99283; 99284

== ENCOUNTER 2025-02-15 21:26 | Emergency (ER) | payer MEDICARE, MEDICAID ==
[2025-02-15] MEDS: Ketorolac 30 MG/ML SDV IM ONE (22:51)
[2025-02-15 23:29] VITALS: BP 155/107; PULSE 104
== END 2025-02-15 22:54 | disposition home or self-care (01) ==
LOC: FB.ED 21:26
DX: S63.501A Unspecified sprain of right wrist, initial encounter (principal); I50.9 Heart failure, unspecified; J44.89 Other specified chronic obstructive pulmonary disease; F17.210 Nicotine dependence, cigarettes, uncomplicated; Z86.16 Personal history of COVID-19; Z91.048 Other nonmedicinal substance allergy status; Z91.030 Bee allergy status; Z88.8 Allergy status to other drugs, medicaments and biological substances; Z79.899 Other long term (current) drug therapy; X50.0XXA Overexertion from strenuous movement or load, initial encounter; Y93.89 Activity, other specified
CPT/HCPCS: 73110; 96372; 99283; J1885